=== PATIENT | female | born 2005 | race Caucasian/White ===

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

== ENCOUNTER 2024-06-20 23:32 | Emergency (ER) | payer SELFPAY ==
--- NOTE | ~2024-06-20 | CT_ITS ---
EXAMINATION: CT abdomen pelvis w con DATE: 06/21/2024 01:14 INDICATION: Acute epigastric abdominal pain. TECHNIQUE: Computed tomography (CT) of the abdomen and pelvis was performed with 100 mL Omnipaque 350 intravenous contrast. Automated exposure control and iterative reconstruction technique were employe d. The dose-length product was 846.05 mGy-cm. COMPARISON: None. FINDINGS: The visualized portions of the lung bases are clear without pneumonia or pleural effusion. The heart size is normal. No pericardial effusion. The liver, gallbladder, spleen, pancreas, adrenal glands, and kidneys are normal. There are no dilated loops of bowel. The appendix is normal. There ar e no pathologically enlarged lymph nodes. There is physiologic fluid in the pelvis. The uterus is enl arged, consistent with recent . There is mild lumbar spondylosis. There is mild chronic ante rior wedging of T11 and T12 vertebral bodies. IMPRESSION: 1. No etiology for the patient's symptoms. Reviewed, dictated and finalized at location A.
[2024-06-20 23:32] VITALS: BP 144/100; PULSE 63; RESP 32; TEMP 36.8; O2SAT 100
[2024-06-20 23:42] VITALS: BP 143/85; PULSE 63; RESP 33; O2SAT 100
--- NOTE | 2024-06-20 23:44 | ED.GENADULT ---
HPI - General Adult General Chief complaint: Shortness of Breath/Dyspnea Stated complaint: abd pain Time Seen by Provider: 06/20/24 23:44 History of Present Illness HPI narrative: This is a 19-year-old female patient who delivered a term infant on June 05, 2020 for who has no other past medical history who presents with an acute onset of mid epigastric pain radiating to her back approximately 1 hour prior. States this is severe pain and feels sharp she localizes it to her epigastrium. She is breathing rapidly but states that this is in compensation of the pain she is not feeling short of breath per se. patient states she is having some lochia but it is normal meaning that it is steadily decreasing since delivery. She is not . Prior to the onset of this pain she was in her usual state of health in her state. Remainder of ROS was negative for fever, chills, nausea, vomiting, headache, vision changes, chest pain, sob, or changes in diet, bladder, or bowel habits. Related Data Home Medications Medication Instructions Recorded Confirmed vits no.126-ferrous fum 1 tablet PO DAILY 10/09/23 10/09/23 28 mg iron-folic acid 800 mcg tablet (Classic ) Allergies Allergy/AdvReac Type Severity Reaction Status Date / Time No Known Allergies Allergy Verified 10/03/23 13:44 [facility] Past Medical History Medical History ADHD Bronchitis COVID-19 Depression Surgical History Surgical History No significant past surgical history Family History Family History Other No significant family history Social History Social History Smoking status: Never smoker Alcohol intake: never Substance use: never Living arrangements: with family Occupation/Education: student 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 Appears uncomfortable and breathing rapidly. No diaphoresis noted. HEENT: No rhinorrhea noted, mucous membranes moist. No scleral icterus or conjunctival injection. CV: Normal rate, regular rhythm, S1S2 no M/G/R. 2+ distal pulses all extremities. No peripheral edema noted. PULM: Rapid respiration. Clear to auscultation bilaterally. No wheezes, rales, rhonchi. GI: Abdomen soft, mild epigastric tenderness. No rigidity, distention or guarding.? NEURO: Normal speech. No lateralizing or focal deficits noted. Course Course Emergency Course: 0002 labs ordered, status post 2 mg of morphine feeling improved. To CT scanner for CT abdomen pelvis with contrast. 0401 CT scan returns without any acute findings or indication of pancreatitis, pyelonephritis, any other acute intra-abdominal pathology. patient reports her pain remains resolved. Vital Signs Vital signs: Vital Signs Temperature 36.8 C 06/20/24 23:32 Pulse Rate 63 06/20/24 23:32 Respiratory Rate 32 H 06/20/24 23:32 Blood Pressure 144/100 H 06/20/24 23:32 Pulse Oximetry 100 06/20/24 23:32 Oxygen Delivery Room Air 06/20/24 23:32 Temperature 36.8 C 06/20/24 23:32 Pulse Rate 57 L 06/21/24 03:46 Respiratory Rate 14 06/21/24 03:46 Blood Pressure 124/81 06/21/24 03:46 Pulse Oximetry 97 06/21/24 03:46 Oxygen Delivery Room Air 06/21/24 02:31 Medical Decision Making MDM Narrative Medical decision making narrative: Patient was placed in Room #:? 1 Independent Historian: none External Source Review: medical records Differential diagnosis includes but not limited to:? pancreatitis, peptic ulcer, GERD Medications were Reviewed: home medications Independently I
[2024-06-20 23:46] VITALS: BP 128/84; PULSE 72; RESP 21; O2SAT 100
[2024-06-20] MEDS: MORPHINE SULFATE (*CRX) 2 MG/ML INJ IV PUSH (23:55)
[2024-06-21] VITALS (19 sets, daily range): BP systolic 114–130; BP diastolic 69–83; PULSE 46–69; RESP 13–23; O2SAT 96–100
--- NOTE | 2024-06-21 00:02 | PC.NURSE ---
patient currently rating her pain at 5/10. patient has slowed her breathing.
--- NOTE | 2024-06-21 00:03 | PC.NURSE ---
Josephine with lab notified of new orders
--- NOTE | 2024-06-21 00:10 | PC.NURSE ---
resting quietly on stretcher. call light in reach. wob not labored at this time. states the morphine is making her have the giggles. lab currently at the bedside
--- NOTE | 2024-06-21 00:16 | PC.NURSE ---
notified dr montemayor of current heart rate of 46. verbal order for ekg
--- NOTE | 2024-06-21 00:19 | ECG_ITS ---
Test Date: 2024-06-21 00:27:24 Measurements Intervals [place] Rate: 54 P: 48 FL: 162 QRS: 61 QRSD: 93 T: 46 QT: 464 QTc: 441 Interpretive Statements SINUS BRADYCARDIA WITH SINUS ARRHYTHMIA WITH OCCASIONAL VENTRICULAR PREMATURE COMPLEXES BORDERLINE ECG No previous ECG available for comparison Electronically Signed On 06-21-2024 07:27:59 CDT by Donnie Thornton D.O.
--- NOTE | 2024-06-21 00:20 | PC.NURSE ---
Airam with cardiopulmonary at the bedside.
[2024-06-21 00:36] LABS: Hematocrit 36.4 % (35.0-49.0); Hemoglobin 11.2 g/dL (12.0-15.0); Mean Corpuscular HGB Conc 30.8 g/dL (32-36); Mean Corpuscular Hemoglobin 26.3 pg (27.0-31.0); Mean Corpuscular Volume 85.4 fL (78.0-102.0); Mean Platelet Volume 11.6 fl (9.2-11.8); Platelet Count Result 301 K/mm3 (150-420); Red Blood Count 4.26 M/mm3 (4.20-5.40); Red Cell Distribution Width 15.1 % (11.6-14.4); White Blood Count 6.9 K/mm3 (4.8-10.8)
[2024-06-21 00:46] LABS: Alanine Aminotransferase 27 U/L (14-59); Albumin Level 3.3 g/dL (3.4-5.0); Alkaline Phosphatase 128 U/L (46-116); Anion Gap 10 mmol/L (4-12); Aspartate Amino Transferase 20 U/L (15-37); Bilirubin,Total 0.2 mg/dL (0.00-1.00); Blood Urea Nitrogen 11 mg/dL (7-18); Calcium 9.1 mg/dL (8.5-10.1); Carbon Dioxide 26 mmol/L (21-32); Chloride 102 mmol/L (98-108); Cholesterol 148 mg/dL (0-200); Estimated CRCL calculation 98 ml/min; Estimated Glomerular Filt Rate > 60; Glucose 111 mg/dL (70-99); HDL Direct 40 mg/dL (40-60); LDL Cholesterol Calculated 81 mg/dL (<130); Osmolality Calculated 286 mOsm/kg (285-295); Potassium 3.2 mmol/L (3.5-5.1); Sodium 138 mmol/L (136-145); Total Protein 6.6 g/dL (6.4-8.2); Triglycerides 136 mg/dL (0-150)
[2024-06-21 00:48] LABS: Lipase 311 U/L (16-77)
[2024-06-21 00:52] LABS: Lactic Acid Reflex 1.4 mmol/L (0.4-2.0)
--- NOTE | 2024-06-21 00:54 | PC.NURSE ---
patient being transported to ct via stretcher.
[2024-06-21 00:55] LABS: Add Urine Microscopic? YES; Bilirubin Urine Negative (Negative); Blood Urine 2+ (Negative); Color Urine Light Yellow (Yellow); Glucose Urine UA Negative (Negative); Ketones Urine Negative (Negative); Leukocyte Esterase Ur 2+ (Negative); Nitrate Urine Negative (Negative); Protein Urine Negative (Negative); Specific Grav Ur 1.025 (1.010-1.020); Urobilinogen Urine 0.2 mg/dL (0.2-1.0)
[2024-06-21 01:03] LABS: Appearance Urine Cloudy (Clear); RBC Urine >75 /hpf (0-2)
[2024-06-21 01:04] LABS: Bacteria Urine 1+ /hpf; Squamous Epithelial Cell Urine Occasional /hpf (Few); WBC Urine 31-50 /hpf (0-3)
[2024-06-21] MEDS: SODIUM CHLORIDE 0.9% IV 500 ML 999 ML IV CONT (01:09)
[2024-06-21] MEDS: SODIUM CHLORIDE 0.9% IV 1,000 ML 150 ML IV CONT (01:45)
--- NOTE | 2024-06-21 01:58 | PC.NURSE ---
patient is resting quietly on stretcher. call light in reach. waiting on ct results
--- NOTE | 2024-06-21 03:00 | PC.NURSE ---
patient is resting quietly on stretcher. call light in reach. at her side. continue to wait on ct results. patient and updated.
--- NOTE | 2024-06-21 03:47 | PC.NURSE ---
notified dr montemayor that ct results have been faxed to department
--- NOTE | 2024-06-21 03:57 | PC.NURSE ---
dr montemayor at the bedside
--- NOTE | 2024-06-23 12:38 | PC.NURSE ---
FINAL URINE CULTURE RESULTS: MIXED GENITAL MEHRDAD. NO ACTION NEEDED PER DR MCKEON.
== END 2024-06-21 04:20 | disposition home or self-care (01) ==
PROVIDERS: Emergency Provider Family Medicine
DX: N39.0 Urinary tract infection, site not specified (principal); R10.13 Epigastric pain
CPT/HCPCS: 36415; 74177; 80053; 80061; 81001; 83605; 83690; 85027; 87086; 87088; 93005; 96361; 96374; 99284; J2270; J7030; J7040; Q9967

== ENCOUNTER 2024-11-10 16:17 | Emergency (ER) | payer OTHER, SELFPAY ==
[2024-11-10 16:23] VITALS: BP 113/70; PULSE 85; RESP 16; TEMP 36.1; O2SAT 99
--- OUTSIDE RECORDS SUMMARY | 2024-11-10 16:28 | XMS_ITS | Clinical Summary ---
Author Organization [facility] [address] Address [address] [place] [address] Phone Care Team Providers Care Body Specialist Name Role Phone No, Physician Primary Care Provider [phone] Allergies Active Allergy Reactions Criticality Noted Date Comments [place] Hives Medium 02/12/2024 Medications oxyCODONE-aceta minophen (PERCOCET) 5-325 mg per tabletIndicatio ns:Pain Take 1-2 tablets by mouth every 8 (eight) hours as needed for pain 20 tablet 06/25/2024 Active Active Problems Problem Noted Date Diagnosed Date Gallstone pancreatitis 06/23/2024 39 weeks gestation of 06/04/2024 Pityriasis rosea 12/04/2017 Immunizations Name Administration Dates Next Due DTaP 05/03/2009, 6,2004,09/27,2004 HiB 01/07/2006,2004,2004 Hib (PRP-T) 2004 IPV 05/03/2009, 5,2004,07/07 Influenza, Trivalent, Preser vative Free, Intramuscular 08/04/2012 MMR 05/03/2009,06/15/2005 Meningococcal MCV4P (Menactra) 06/03/2015 Pneumococcal Conjugate 7-Valent 06/15/2005 Pneumococcal Conjugate PCV 13 2004, 004,2004 Tdap 06/03/2015 Varicella 05/03/2009,06/15/2005 Family History Medical History Relation Name Comments Hemophilia Mother Relation Name Status Comments Mother Social History Tobacco Use Types Packs/Day Years Used Date Smoking Tobacco: Never Smokeless Tobacco: Never Alcohol Use Standard Drinks/Week Comments No 0 (1 standard drink = 0.6 oz pur e alcohol) [facility] Utilities Answer Date Recorded In the past 12 months has th e electric, gas, oil, or water company threatened to shut off services in your home? No 06/25/2024 Humiliation, Afraid, Rape, and Kick questionnair e Answer Date Recorded Within the last year, have y ou been afraid of your partner or ex-partner? No 06/25/2024 Within the last year, have y ou been humiliated or emotionally abused in other ways by your partner or ex-partner? No Within the last year, have y ou been kicked, hit, slapped, or otherwise physically hurt by your partner or ex-partner? No 06/25/2024 Within the last year, have y ou been raped or forced to have any kind of sexual activity by your partner or ex-partner? No 06/25/2024 Social Connection and Isolat ion Panel [NHANES] Answer Date Recorded In a typical week, how many times do you talk on the phone with family, friends, or neighbors? More than three times a week 06/25/2024 How often do you get togethe r with friends or relatives? More than three times a week 06/25/2024 How often do you attend chur or restoration services? Never 06/25/2024 Do you belong to any clubs o r organizations such as mosque groups, unions, fraternal or athletic groups, or school groups? No 06/25/2024 How often do you attend meet ings of the clubs or organizations you belong to? Never 06/25/2024 Are you , , di vorced, , never , or living with a partner? 06/25/2024 AUDIT-C Answer Date Recorded Q1: How often do you have a drink containing alcohol? Never 06/25/2024 Q2: How many drinks containi ng alcohol do you have on a typical day when you are drinking? Patient does not drink Q3: How often do you have si x or more drinks on one occasion? Never 06/25/2024 Overall Financial Resource Strain (CARDIA) Answe r Date Recorded How hard is it for you to pa y for the very basics like food, housing, medical care, and heating? Not hard at all 06/25/2024 PHQ-2 Answer Date Recorded PHQ-2 Total Score (If total score is 3 or more points, staff should administer the PHQ-9) 0 06/25/2024 [facility] - Occupational Stress Questionnaire Answer Date Recorded Do you feel stress - tense, restless, nervous, or anxious, or unable to sleep at night because your mind is troubled all the time - these days? Only a little 06/25/2024 Exercise Vital Sign Answer Date Recorde d On average, how many days pe r week do you engage in moderate to strenuous exercise (like a brisk walk)? 7 days 06/25/2024 On average, how many minutes do you engage in exercise at this level? 30 min 06/25/2024 Hunger Vital Sign Answer Date Recorded Within the past 12 months, y ou worried that your food would run out before you got the money to buy more. Never true 06/25/20 24 Within the past 12 months, t he food you bought just didn't last and you didn't have money to get more. Never true 06/25/2024 PRAPARE - Transportation Answer Date Re corded In the past 12 months, has l ack of transportation kept you from medical appointments or from getting medications? No 06/01 In the past 12 months, has l ack of transportation kept you from meetings, work, or from getting things needed for daily living? No 06/25/2024 Housing Stability Vital Sign Answer Chris e Recorded Unable to Pay for Housing in the Last Year Not o n file 02/12/2024 In the last 12 months, how many places have you lived? 1 02/12/2024 In the last 12 months, was t here a time when you did not have a steady place to sleep or slept in a fci (including now)? No 02/12/2024 Housing Stability Vital Sign Answer Chris e Recorded In the last 12 months, was t here a time when you were not able to pay the mortgage or rent on time? No 06/25/2024 In the past 12 months, how m any times have you moved where you were living? 0 06/25/2024 At any time in the past 12 m [facility], were you homeless or living in a fci (including now)? No 06/25/2024 Personal Safety Answer Date Recorded Have you ever been in or are you currently in a harmful physical or emotional relationship or is someone making you feel afraid or unsafe? 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 Gender Identity Not on file Sexual Orientation Not on file Obstetrics History Para Term AB IAB SAB Ectopic Multiple Livin g Live Births 1 1 1 0 1 1 Date Outcome GA Total Labor Labor/2nd/3rd Weight Sex Type Anes PTL Zohreh A1 A5 Name Clin 2023 Term 39w 5d 6h 53m 5h 30m/1h 16m/0h 07m 3.364 kg (7 lb 6.7 oz) M Vagina l Epidur al N Livin g 2 6 Beau Sanchez Wakefield MD Complications:None Delivery Location:This [facility] Last Filed Vital Signs Vital Sign Reading Time Taken Comments Blood Pressure 136/83 06/26/2024 8:12 AM CDT Pulse 54 06/26/2024 8:12 AM CDT Temperature 36.5 C (97.7 F) 06/26/2024 8:12 AM CDT Respiratory Rate 18 06/26/2024 8:12 AM CDT Oxygen Saturation 100% 06/26/2024 8:12 AM CDT Inhaled Oxygen Concentration - - Weight 94.9 kg (209 lb 3.5 oz) 06/23/2024 10:34 AM CDT Height 172.7 cm (5' 8 ) 06/23/2024 10:34 AM CDT Body Mass Index 31.81 06/23/2024 10:34 AM CDT Plan of Treatment Health Maintenance Due Date Last Done Comments Hepatitis C Screening 2004 HPV Vaccines (1 - 3-dose series) 2019 Meningococcal B Vaccine (1 of 2 - Patient Seeks Protection) 2020 Hepatitis B Screening 2022 Regular Well Visit/Exam 18-64 2022 Influenza Vaccine (#1) 2024 08/04/2012 DTaP/Tdap/Td Vaccine (7 - Td or Tdap) 06/03/2025 06/03/2015, 05/03/2009, 01/07/2006, Additional history exists Depression Screening 06/25/2025 06/25/2024, 06/25/2024, 05/21/2024, Additional history exists Pneumococcal vaccine <65 Completed 005, 2004, 2004, Additional history exists Varicella Vaccines Completed 05/03/2009, 06/15/2005 Meningococcal Vaccine Aged Out 06/03/2015 No chris sue eligible based on patient's age to complete this topic Insurance IDPA [employer] CHOICE IDPA [facility] [employer] CHOICE IDPA Advance Directives For more information, please contact: [phone] * Full Code (Latest Code Status on File) Date Activated Date Inactivated Comments 06/23/2024 8:57 AM 06/26/2024 4:00 PM * Full Code Date Activated Date Inactivated Comments 06/05/2024 4:35 AM 06/07/2024 5:32 PM * Full Code Date Activated Date Inactivated Comments 06/04/2024 12:17 AM 06/05/2024 4:35 AM Full CPR in c ase of cardiopulmonary arrest Care Teams Body Specialist Relationship Specialty Start Date End Date No, Physician PCP - General 12/13/23
--- OUTSIDE RECORDS SUMMARY | 2024-11-10 16:28 | XMS_ITS | Clinical Summary ---
Author Organization [facility] Address [address] [place] [address] Phone Care Team Providers Care Partner Alliance Manager Name Role Phone Unavailable Unavailable Unavailable Reason for Visit and Chief Complaint * PHONE CALL Problems Includes: Problems addressed during this encounter and other active Problems All Visits Onset Date Resolved Date Provider Condition S tatus History of Breast Disorders 11/20/2023 KEYANNA BOX MD Active Last Documented On 11/20/2023 4:08PM ; [facility] Note: PGM cancer History of Depression 11/20/2023 KEYANNA BOX MD Active Last Documented On 11/20/2023 4:08PM ; [facility] Note: pt dx at 5 yo was on ritalin for A DHD at 8 y o x one year; no meds since then; dad, mom History of Hematologic Disorders 11/20/2023 KEYANNA BOX MD Active Last Documented On 11/20/2023 4:08PM ; [facility] Note: dad History of Renal Disease 11/20/2023 KEYANNA BOX MD Active Last Documented On 11/20/2023 4:08PM ; [facility] Note: dad kidney cancer, had kidney breana crystal History of Reported Physical Trauma 11/20/2023 KEYANNA BOX MD Active Last Documented On 4 4:08PM ; [facility] Reported Family History of Congenital Heart Disease 10/30/2023 [facility] Last Documented On 10/30/2023 11:05AM ; [facility] Note: mom hemophelia carrier 09/02/2023 KEYANNA BOX MD Active Last Documented On 4 3:04PM ; [facility] Plan of Treatment Pending Tests Order Diagnosis Results Due Ordering P rovider Lab Penta screen 12/23/23 KEYANNA BELCHER MD Last Documented On 4 11:53AM ; [facility] Ultrasound (OB) - U/S COMPLETE OB U/S >/ = 14 WKS , SINGLE FETUS Matern care for oth or susp poor fetl grth, 2nd tri, unsp 01/20/24 KEYANNA BOX MD Last Documented On 4 3:29PM ; [facility] Lab Antibody Scr, RBC w/ reflex id 02/17 KEYANNA BOX MD Last Documented On 4 8:22AM ; [facility] Lab RPR (Monitoring) w/ reflex Titer KEYANNA BOX MD Last Documented On 4 8:22AM ; [facility] Lab UA, Complete, Reflex to Culture 01/29 10/23 KEYANNA BOX MD Last Documented On 4 8:22AM ; [facility] Lab 1 HR GLUCOSE TOLERANCE TEST 02/18/24 KEYANNA BOX MD Last Documented On 4 8:22AM ; [facility] Lab *CBC W/DIFF 02/18/24 KEYANNA Sparrow MD Last Documented On 4 8:22AM ; [facility] Lab CBC WITH DIFF 03/10/24 KEYANNA RENEE MD Last Documented On 4 9:44AM ; [facility] Lab URINALYSIS /REFLEX C&S 03/10/24 LACY BOX MD Last Documented On 4 9:44AM ; [facility] Lab ANTIBODY SCREEN 03/10/24 KEYANNA VEGA MD Last Documented On 4 9:44AM ; [facility] Lab GTT 1 HOUR GLUCOSE 03/10/24 KEYANNA BOX MD Last Documented On 4 9:44AM ; [facility] Lab RPR (RAPID PLASMA REAGIN) 03/10/24 KEYANNA BOX MD Last Documented On 4 9:44AM ; [facility] Ultrasound (OB) - ULTRASOUND FOLLOW -UP OB U/S Matern care for oth or susp poor fetl grth, 2nd tri, unsp 03/13/24 KEYANNA BOX MD Last Documented On 4 9:53AM ; [facility] Assessments Includes: Assessments from this encounter No Assessments Recorded Medical Equipment - Implanted Devices Includes: Current Devices No Medical Equipment Recorded Medications Includes: Medications discussed during this encounter and other current Medications Current Medications (continue as prescribed) Vitamins Oral Tablet 11/20/2023 Provider: Diagnosis: Last Documented On 4 3:22PM By FERNANDA CROSS ; [facility] Sertraline HCl 50 MG Oral Tablet 11/20/2023 Provider: KEYANNA BOX MD Diagnosis: Oth mental disor ders complicating , first trimester One tablet daily Last Documented On 11/20/2023 4:06PM By KEYANNA BOX MD ; [facility] Medications Administered Includes: Administered Medications from this encounter No Administered Medications Recorded Results Includes: Results discussed during this encounter No Results Recorded For Specified Dates History of Present Illness Includes: History of Present Illness from this encounter No History of Present Illness Recorded Social History No Social History Recorded - Smoking Status Unknown Medical History Includes: Medical History addressed during this encounter No Medical History Recorded Family History Includes: Family History addressed during this encounter No Family History Recorded Review of Systems Includes: Review of Systems from this encounter No Review of Systems Recorded Mental Status Includes: Mental Status from this encounter No Mental Status Recorded Functional Status Includes: Functional Status from this encounter No Functional Status Recorded Physical Exam Includes: Physical Exam from this encounter No Physical Exam Recorded Allergies Includes: Active Allergies No Known Allergies Encounters Encounter Provider Location Date Check-In Time Check-Out Time Diagnosis * PHONE CALL KEYANNA BOX MD 02/12/2024 9:26AM 11:59PM Insurance Includes: Active Insurance Policies Plan Name Member ID Group # Subscriber Relationship Effect lizy Dates 1 - MEDICAID [facility] [id number] [place] Self Clinical Notes Includes: Clinical Notes from this encounter * Progress note Date Encounter Last Documented by 02/12/2024 * PHONE CALL Last documented on 02/12/2024; 3:33 PM, KEYANNA BOX MD; [facility] OB Visit Return Visit Risk Factors Family History of Disorders of Blood and Blood-forming Organs (Score: 0) History of Breast Disorders (Score: 0) History of Depression (Score: 0) History of Hematologic Disorders (Score: 0) History of Renal Disease (Score: 0) History of Reported Physical Trauma (Score: 0) (Score: 0) Age: 18y : 1 FT: 0 : 0 Ab: 0 Zohreh: 0 DON: 06/08/2024 (by LMP) Gestational Age: 23 weeks 2 days Pt called with complaints of feeling nauseous, weak in the knees and dizzy/light headed since Saturday evening 02/10/2024. She has had some swelling in her ankles for about 3-4 days. Pt denies any chest pain. When asked about epi gastric pain she said it feels like she has trapped gas/sharp pain that has been about a week every once in a while at night. She was also sweaty/clammy yesterday. She said her b/p was 135/75 yesterday and today it was 142/67 with a blood sugar of 119. (She gets it checked at the [employer] where she works.) She had eaten two [employer] breakfast bars along with some water. She said she drinks 24 ounces of water 3 times a day and has a 32 ounce soda every couple of days.Pt was advised to go to L&D for evaluation. DG at L&D: FHT's: 130's, no ctx's; BP's NOT orthostatic; urine: no UTI; home: balanced nutrition, keep office visit next wk, likely 26 wk labs early;
--- OUTSIDE RECORDS SUMMARY | 2024-11-10 16:28 | XMS_ITS ---
Care Plan - [facility] Created on: November 10, 2024 [place] : 2005 Sex: Female Author Organization [facility] Address [address] [place] [id number] Phone Care Team Providers Care Clinical Quality Assurance Associate Name Role Phone Unavailable Unavailable Unavailable
--- OUTSIDE RECORDS SUMMARY | 2024-11-10 16:28 | XMS_ITS | Clinical Summary ---
Author Organization [facility] Address [address] [place] [address] Phone Care Team Providers Care Washer Machine Name Role Phone Provider, None Primary Care Provider Unavailabl e Allergies No known active allergies Medications Escitalopram Oxalate 5 MG TabletIndication s:Anxiety and depression Take 1 Tablet by mouth daily. 30 Tablet 07/17/2021 Active Active Problems Problem Noted Date Diagnosed Date Family history of hemophilia 07/17/2021 Family History Medical History Relation Name Comments Bipolar Disorder Father Cancer Maternal Grandmother breast and pancreatic Anxiety disorder Mother Depression Mother Cancer Paternal Grandmother breast and ovarian CA Relation Name Status Comments Father Maternal Grandmother Mother Paternal Grandmother Social History Tobacco Use Types Packs/Day Years Used Date Smoking Tobacco: Never Smokeless Tobacco: Never Alcohol Use Standard Drinks/Week Comments Not Currently 0 (1 standard drink = 0.6 oz pur e alcohol) PHQ-2 Answer Date Recorded Total Score - Questions 1-9 20 06/30 Sexually Active Control Partners Comments Yes Male Comments No Sex and Gender Information Value Date Recorded Sex Assigned at Not on file Legal Sex Female 8:34 PM CDT Gender Identity Not on file Sexual Orientation Not on file Last Filed Vital Signs Vital Sign Reading Time Taken Comments Blood Pressure 116/76 03/22/2022 4:11 PM CDT Pulse 98 03/22/2022 4:11 PM CDT Temperature 38.1 C (100.6 F) 03/22/2022 4:11 PM CDT Respiratory Rate 16 03/22/2022 4:11 PM CDT Oxygen Saturation 98% 03/22/2022 4:11 PM CDT Inhaled Oxygen Concentration - - Weight 73.9 kg (163 lb) 03/22/2022 4:11 PM CDT Height 170.2 cm (5' 7 ) 07/17/2021 3:52 PM CDT Body Mass Index - - Plan of Treatment Health Maintenance Due Date Last Done Comments Hepatitis C Virus (HCV) Screening 2004 Human Papillomavirus (HPV) Immunization (1 - 3-dose series) 2019 Meningococcal B Immunization (1 of 2 - Standard) 2020 Influenza Immunization (#1) 2024 08/04/2012 SARS-COV-2 Immunization ( season) 2024 Respiratory Syncytial Virus (RSV) Immunization (Adult) (1 - 1-dose 75+ series) 2079 Hepatitis B Immunization Completed 005, 2004, 2004 Pneumococcal Immunization Combined Aged Out 06/15/2005, 2004, 2004, Additional history exists No longer eligible based on patient's age to complete this topic Measles Mumps Rubella (MMR) Immunization Discontinued 05/03/2009, 06/15/2005 Polio (IPV) Immunization Discontinued 009, 05/03/2009, 2004, Additional history exists Varicella Immunization Discontinued 05/03/2009, 2004 DTaP/Tdap/Td Immunization Discontinued 2014, 05/03/2009, 05/03/2009, Additional history exists Meningococcal Immunization (ACWY) Aged Out 06/03/2015 No longer eligible based on patient's age to complete this topic TdaP Immunization Completed 06/03/2015 Rotavirus Immunization Aged Out No lo nger eligible based on patient's age to complete this topic Insurance MEDICAID [place] Care Teams Washer Machine Relationship Specialty Start Date End Date Provider, None CT PCP - General 07/12/22
--- OUTSIDE RECORDS SUMMARY | 2024-11-10 16:28 | XMS_ITS ---
Author Organization [facility] Address [address] [place] [phone] Phone Care Team Providers Care Senior Project Coordinator Name Role Phone Unavailable Unavailable Unavailable Problems Includes: Active, inactive, and resolved Problems All Visits Onset Date Resolved Date Provider Condition S tatus History of Breast Disorders 11/20/2023 KEYANNA VILLA MD Active Last Documented On 11/20/2023 4:08PM ; [facility] Note: PGM cancer History of Depression 11/20/2023 KEYANNA VILLA MD Active Last Documented On 11/20/2023 4:08PM ; [facility] Note: pt dx at 5 yo was on ritalin for A DHD at 8 y o x one year; no meds since then; dad, mom History of Hematologic Disorders 11/20/2023 KEYANNA VILLA MD Active Last Documented On 11/20/2023 4:08PM ; [facility] Note: dad History of Renal Disease 11/20/2023 KEYANNA VILLA MD Active Last Documented On 11/20/2023 4:08PM ; [facility] Note: dad kidney cancer, had kidney breana crystal History of Reported Physical Trauma 11/20/2023 KEYANNA VILLA MD Active Last Documented On 4 4:08PM ; [facility] Reported Family History of Congenital Heart Disease 10/30/2023 YI BARBOUR NP-BC A ctive Last Documented On 10/30/2023 11:05AM ; [facility] Note: mom hemophelia carrier 09/02/2023 KEYANNA VILLA MD Active Last Documented On 4 3:04PM ; [facility] Plan of Treatment Findings Encounter Date Ordered Clinical summary pro vided to patient MISSED MENSES - NEW PT with YI BARBOUR WHNP-BC 10/30/2023 Last Documented On 4 11:14AM ; [facility] Pending Tests Order Diagnosis Results Due Ordering P rovider Lab Penta screen 12/23/23 KEYANNA BELCHER MD Last Documented On 4 11:53AM ; [facility] Ultrasound (OB) - U/S COMPLETE OB U/S >/ = 14 WKS , SINGLE FETUS Matern care for oth or susp poor fetl grth, 2nd tri, unsp 01/20/24 KEYANNA VILLA MD Last Documented On 4 3:29PM ; [facility] Lab Antibody Scr, RBC w/ reflex id 02/17 KEYANNA VILLA MD Last Documented On 4 8:22AM ; [facility] Lab RPR (Monitoring) w/ reflex Titer KEYANNA VILLA MD Last Documented On 4 8:22AM ; [facility] Lab UA, Complete, Reflex to Culture 01/29 10/23 KEYANNA VILLA MD Last Documented On 4 8:22AM ; [facility] Lab 1 HR GLUCOSE TOLERANCE TEST 02/18/24 KEYANNA VILLA MD Last Documented On 4 8:22AM ; [facility] Lab *CBC W/DIFF 02/18/24 KEYANNA Sparrow MD Last Documented On 4 8:22AM ; [facility] Lab CBC WITH DIFF 03/10/24 KEYANNA RENEE MD Last Documented On 4 9:44AM ; [facility] Lab URINALYSIS /REFLEX C&S 03/10/24 LACY VILLA MD Last Documented On 4 9:44AM ; [facility] Lab ANTIBODY SCREEN 03/10/24 KEYANNA VEGA MD Last Documented On 4 9:44AM ; [facility] Lab GTT 1 HOUR GLUCOSE 03/10/24 KEYANNA VILLA MD Last Documented On 4 9:44AM ; [facility] Lab RPR (RAPID PLASMA REAGIN) 03/10/24 KEYANNA VILLA MD Last Documented On 4 9:44AM ; [facility] Ultrasound (OB) - ULTRASOUND FOLLOW -UP OB U/S Matern care for oth or susp poor fetl grth, 2nd tri, unsp 03/13/24 KEYANNA VILLA MD Last Documented On 4 9:53AM ; [facility] Education and Decision Aids were provided during visit for: New OB form given to patient SAB precautions reviewed and pnv samples given. Advised H1N1 and seasonal flu vaccine. Covid vaccine per ACOG and CDC protocol Last Documented On 4 10:32AM ; [facility] Assessments Includes: Assessments for all patient encounters Findings Encounter Date Amenorrhea 8 2/7 weeks by LM P - EDC 06-11-24 MISSED MENSES - NEW PT with YI BECK-BC 10/30/2023 Last Documented On 4 11:14AM ; [facility] Instructions Includes: Instructions for all patient encounters Education and Decision Aids were provided during visit for: New OB form given to patient SAB precautions reviewed and pnv samples given. Advised H1N1 and seasonal flu vaccine. Covid vaccine per ACOG and CDC protocol Last Documented On 4 10:32AM ; [facility] Medical Equipment - Implanted Devices Includes: Current and historical Devices No Medical Equipment Recorded Medications Includes: Current and historical Medications Current Medications (continue as prescribed) Vitamins Oral Tablet 11/20/2023 Provider: Diagnosis: Last Documented On 4 3:22PM By FERNANDA CROSS ; [facility] Sertraline HCl 50 MG Oral Tablet 11/20/2023 Provider: KEYANNA VILLA MD Diagnosis: Oth mental disor ders complicating , first trimester One tablet daily Last Documented On 11/20/2023 4:06PM By KEYANNA VILLA MD ; [facility] Past Medications on file Macrobid 100 MG Oral Capsule 01/10/2024 - 01/17/2024 P rolupeder: YI BECK-BC Diagnosis: Dysuria One tablet twice a day Last Documented On 01/10/2024 2:56PM By Lindsey Chan Ez ; [facility] Terconazole 0.4% Vaginal Cream 11/01/2023 - 11/20/2023 Provider: YI A BARBOUR WH LABORATORY ANALYST-BC Diagnosis: as directed - insert one madi licator full pv q hs x 7 nocs Last Documented On 3:21PM By FERNANDA CROSS ; [facility] Macrobid 100 MG Oral Capsule 10/31/2023 - 11/20/2023 Shyla fitzgerald: YI BARBOUR WHNP-BC Diagnosis: One tablet twice a day Last Documented On 3:06PM By FERNANDA CROSS ; [facility] Medications Administered Includes: Administered Medications in patient's chart No Administered Medications Recorded Vital Signs Includes: Vital Signs from 11/10/2023 through 11/10/2024 Vital Name 03/03/2024 09:16A 02/18/2024 11:21A 01/20/2024 01:48P 12/23/2023 11:28A 11/20/2023 03:05P Blood Pressure Sitting R 118/68 BP Cuff Size Regular Temp-Temporal 98.7 98.7 Weight (lb) 190 185 178 173 171.4 Blood Pressure Sitting (mmHg) 116/64 100/60 110/62 110/82 Temp-Oral (F) 98.3 98.7 98.6 Height (in) 67.5 Body Mass Index 26.4 BMI Percentile (percentile) 85.4 Body Surface Area 1.9 Last Documented: On 03/03/2024 9:16AM ; [facility] On 02/18/2024 11:42AM ; [facility] On 01/20/2024 1:48PM ; [facility] On 12/23/2023 11:28AM ; [facility] On 11/20/2023 4:01PM ; [facility] Results Includes: Results from 11/10/2023 through 11/10/2024 CBC WITH DIFF [facility] La boratory Ordered by KEYANNA VILLA MD on 03/03/20 24 [address] [facility], [place], [address] Collected: 03/03/2024 Report ed: 03/03/2024 11:32 tel: Last Documented On 3:33PM ; [facility] Reviewed on 03/13/2024; All test results are final unless otherwise noted. ALC 1.2 None Last Documented On 4 9:53AM ; [facility] Note: Responsible Observer: (HRG) ANC 6.5 None Last Documented On 4 9:53AM ; [facility] Note: Responsible Observer: (HRG) BASO# 0.03 th/uL (0.00 - 0.20) None Last Documented On 4 9:53AM ; [facility] Note: Responsible Observer: (HRG) BASO% 0.4 % (0.0 - 2.0) None Last Documented On 4 9:53AM ; [facility] Note: Responsible Observer: (HRG) CBC WITH DIFF See Note None Last Documented On 4 9:53AM ; [facility] Note: CBC (COMPLETE BLOOD COUNT)Responsi ble Observer: (HRG) DIFF (Y/N) NO None Last Documented On 4 9:53AM ; [facility] Note: Responsible Observer: (HRG) EOS# 0.08 th/uL (0.00 - 0.45) None Last Documented On 4 9:53AM ; [facility] Note: Responsible Observer: (HRG) EOS% 1.0 % (0.0 - 9.0) None Last Documented On 4 9:53AM ; [facility] Note: Responsible Observer: (HRG) HCT 31.6 % (38.0 - 47.0) L (Low) Last Documented On 4 9:53AM ; [facility] Note: Responsible Observer: (HRG) HGB 9.8 g/dL (12.0 - 16.0) L (Low) Last Documented On 4 9:53AM ; [facility] Note: Responsible Observer: (HRG) IG# 0.05 th/ul (0.00 - 0.10) None Last Documented On 4 9:53AM ; [facility] Note: Responsible Observer: (HRG) IG% 0.6 % (0.0 - 0.5) H (High) Last Documented On 4 9:53AM ; [facility] Note: Responsible Observer: (HRG) LYMPH# 1.15 th/uL (1.00 - 4.80) None Last Documented On 4 9:53AM ; [facility] Note: Responsible Observer: (HRG) LYMPH% 14.1 % (14.0 - 45.0) None Last Documented On 4 9:53AM ; [facility] Note: Responsible Observer: (HRG) MCH 25.7 pg (25.0 - 35.0) None Last Documented On 4 9:53AM ; [facility] Note: Responsible Observer: (HRG) MCHC 31.0 g/dL (31.0 - 36.0) None Last Documented On 4 9:53AM ; [facility] Note: Responsible Observer: (HRG) MCV 82.9 fl (80.0 - 100) None Last Documented On 4 9:53AM ; [facility] Note: Responsible Observer: (HRG) MONO# 0.35 th/uL (0.00 - 0.80) None Last Documented On 4 9:53AM ; [facility] Note: Responsible Observer: (HRG) MONO% 4.3 % (1.0 - 10.0) None Last Documented On 4 9:53AM ; [facility] Note: Responsible Observer: (HRG) MPV 12.2 fl (6.0 - 11.0) H (High) Last Documented On 4 9:53AM ; [facility] Note: Responsible Observer: (HRG) NEUT# 6.49 th/uL None Last Documented On 4 9:53AM ; [facility] Note: Responsible Observer: (HRG) NEUT% 79.6 % (45.0 - 76.0) H (High) Last Documented On 4 9:53AM ; [facility] Note: Responsible Observer: (HRG) NRBC% 0.0 % (0.0 - 0.0) None Last Documented On 4 9:53AM ; [facility] Note: Responsible Observer: (HRG) PLT 251 th/uL (150 - 400) None Last Documented On 4 9:53AM ; [facility] Note: Responsible Observer: (HRG) RBC 3.81 mil/uL (4.50 - 5.90) L (Low) Last Documented On 4 9:53AM ; [facility] Note: Responsible Observer: (HRG) RDW 14.1 % (11.0 - 16.0) None Last Documented On 4 9:53AM ; [facility] Note: Responsible Observer: (HRG) WBC 8.2 th/uL (4.5 - 11.0) None Last Documented On 4 9:53AM ; [facility] Note: Responsible Observer: (HRG) GESTATIONAL DIABETES SCREEN [facility] Laboratory Ordered by KEYANNA VILLA MD on 03/03/20 24 [address] [employer] [facility], [place], [address] Collected: 03/03/2024 Report ed: 03/03/2024 11:34 tel:[phone] Last Documented On 4 3:33PM ; [facility] Reviewed on 03/13/2024; All test results are final unless otherwise noted. GLUCOSE 110 (70 - 150) None Last Documented On 03/05/2024 9:53AM ; [facility] Note: Weeks Gestation _26 03/03/24.1134.PA . . . Gms of Glucola _50 03/03/24.1134.PA . . .Responsible Observer: (PA) GESTATIONAL DIABETES SCREEN See Note None Last Documented On 03/05/2024 9:53AM ; [facility] Note: GESTATIONAL DIABETES SCREENGlucose 1 hr, GDMSResponsible Observer: (PA) ANTIBODY SCREEN [facility] Ordered by KEYANNA VILLA MD on 03/03/20 24 [address] [facility] [place], [address] Collected: 03/03/2024 Report ed: 03/03/2024 11:55 tel:[phone] Last Documented On 4 3:33PM ; [facility] Reviewed on 03/13/2024; All test results are final unless otherwise noted. ANTIBODY SCREEN NONE DETECTED None Last Documented On 03/05/2024 9:53AM ; [facility] Note: Responsible Observer: (JACLYN) RPR (RAPID PLASMA REAGIN) [facility] Laboratory Ordered by KEYANNA VILLA MD on 03/03/20 24 [address] [facility] [place], [address] Collected: 03/03/2024 Report ed: 03/05/2024 07:03 tel:[phone] Last Documented On 4 3:33PM ; [facility] Reviewed on 03/13/2024; All test results are final unless otherwise noted. RPR (DX) W/REFL TITERAND CONFIRMATORY TESTING NON-REACTIVE (NON-REACTIVE) N (Normal) Last Documented On 9:53AM ; [facility] Note: No laboratory evidence of syphilis . If recent exposureis suspected, submit a new sample in 2-4 weeks.THIS TEST WAS PERFORMED AT:[facility] [id number] [place] [id number] HARLEY,MDResponsible Observer: (rfl) INFECT. CONT REPORT NO None Last Documented On 4 9:53AM ; [facility] Note: Responsible Observer: (PA) Reported Physicians [facility] La boratory Ordered by KEYANNA VILLA MD on 03/03/20 24 [address] [place], [address] Collected: 03/03/2024 Report ed: 03/05/2024 09:44 tel:[phone] Last Documented On 3:33PM ; [facility] Reviewed on 03/13/2024; All test results are final unless otherwise noted. Reported Physicians See Note None Last Documented On 03/05/2024 9:53AM ; [facility] Note: Reported Physicians:Ordering: Keyanna Villa CAttending: KEYANNA VILLAConsulting: KEYANAN VILLA URINALYSIS/REFLEX C&S [facility] Laboratory Ordered by KEYANNA VILLA MD on 03/03/20 24 [address] [place], [address] Collected: 03/03/2024 Report ed: 03/03/2024 13:06 tel: Last Documented On 4 3:33PM ; [facility] Reviewed on 03/13/2024; All test results are final unless otherwise noted. AMORPH PHOS 1+ None Last Documented On 4 9:53AM ; [facility] Note: Responsible Observer: (JACLYN) BACTERIA Few (NORMAL: NONE) None Last Documented On 4 9:53AM ; [facility] Note: Responsible Observer: (JACLYN) BILIRUBIN NEGATIVE (Normal: Negative) None Last Documented On 4 9:53AM ; [facility] Note: Responsible Observer: (JACLYN) BLOOD NEGATIVE (Normal: Negative) None Last Documented On 4 9:53AM ; [facility] Note: Responsible Observer: (JACLYN) CASTS None seen (NORMAL: NONE) None Last Documented On 4 9:53AM ; [facility] Note: Responsible Observer: (JACLYN) CLARITY SL CLOUDY (Normal: Clear) None Last Documented On 4 9:53AM ; [facility] Note: Responsible Observer: (JACLYN) COLOR YELLOW (Normal: Straw - leon) None Last Documented On 4 9:53AM ; [facility] Note: Responsible Observer: (JACLYN) CRYSTALS See Below (NORMAL: 0 - 3 /hpf) None Last Documented On 4 9:53AM ; [facility] Note: Responsible Observer: (JACLYN) CULTURE TO FOLLOW None Last Documented On 4 9:53AM ; [facility] Note: MICROSCOPIC EXAMINATION IF NOT IND ICATED WILL NOT BE PERFORMEDResponsible Observer: (JACLYN) EPI CELLS 11-20 (NORMAL: NONE) None Last Documented On 4 9:53AM ; [facility] Note: Responsible Observer: (JACLYN) GLUCOSE NEGATIVE (Normal: Negative) None Last Documented On 4 9:53AM ; [facility] Note: Responsible Observer: (JACLYN) KETONE NEGATIVE (Normal: Negative) None Last Documented On 4 9:53AM ; [facility] Note: Responsible Observer: (JACLYN) LEUKOCYTE. 2+ (Normal: Negative) A (Abnormal) Last Documented On 4 9:53AM ; [facility] Note: Responsible Observer: (JACLYN) MICROSCOPIC? SEE BELOW None Last Documented On 4 9:53AM ; [facility] Note: MICROSCOPICResponsible Observer: ( JACLYN) MUCOUS NONE SEEN None Last Documented On 4 9:53AM ; [facility] Note: Responsible Observer: (JACLYN) NITRITE. NEGATIVE (Normal: Negative) None Last Documented On 4 9:53AM ; [facility] Note: Responsible Observer: (JACLYN) pH 8.0 (Normal: 5.0 - 9.0) None Last Documented On 4 9:53AM ; [facility] Note: Responsible Observer: (JACLYN) PROTEIN NEGATIVE (Normal: Negative) None Last Documented On 4 9:53AM ; [facility] Note: Responsible Observer: (JACLYN) RBC 0-2 (NORMAL: 0 - 3 /hpf) None Last Documented On 4 9:53AM ; [facility] Note: Responsible Observer: (JACLYN) SP GRAVITY 1.015 (Normal: 1.005-1.030) None Last Documented On 4 9:53AM ; [facility] Note: Responsible Observer: (JACLYN) TRICHOMONAS None Seen None Last Documented On 4 9:53AM ; [facility] Note: Responsible Observer: (JACLYN) UA SPECIMEN CVS (CLEAN VO None Last Documented On 4 9:53AM ; [facility] Note: Responsible Observer: (KLB) UROBILINOGEN 0.2 (Normal: Negative) None Last Documented On 4 9:53AM ; [facility] Note: Responsible Observer: (JACLYN) WBC 6-10 (NORMAL: 0 - 5 /hpf) A (Abnormal) Last Documented On 4 9:53AM ; [facility] Note: Responsible Observer: (JACLYN) YEAST None Seen None Last Documented On 4 9:53AM ; [facility] Note: Responsible Observer: (JACLYN) URINALYSIS/REFLEX C See Note None Last Documented On 4 9:53AM ; [facility] Note: URINALYSIS/REFLEX C&SResponsible O bserver: (JACLYN) .CULTURE URINE CLEAN VOID SPECIMEN [facility] Laboratory Ordered by KEYANNA VILLA MD on 03/03/20 [address] [facility] [place], [address] Collected: 03/03/2024 Report ed: 03/05/2024 09:41 tel:[phone] Last Documented On 3:33PM ; [facility] Reviewed on 03/13/2024; All test results are final unless otherwise noted. .CULTURE URINE CLEAN VOID SPECIMEN See Note None Last Documented On 03/05/2024 9:53AM ; [facility] Note: _URINE CULTURE_ _CVS_ INFECT. CONT REPORT NO None Last Documented On 03/05/2024 9:53AM ; [facility] Note: _COLONY_COUNT_<50,000._MIXED_FLORA,_SUGGEST_ REPEAT 03/05/2441.SEP. 03/05/24.DANG.COMPLETENOResponsible Observer: (DANG) HIV SCREEN Manual Lab Entry Ordered by KEYANNA VILLA MD on 11/27/19 Collected: 11/20/2023 Reported: 11/22/19 16:12 Last Documented On 4 3:56PM ; [facility] Reviewed on 11/27/2023; All test results are final unless otherwise noted. Review Note Provider Name Date Varicella IGM - Negative - 0.46 11/27/2023 HIV SCREEN Non-Reactive (Non-Reactive) N (Normal) Last Documented On 4 3:51PM ; [facility] RPR W/ REFLEX TITER Manual Lab Entry Ordered by KEYANNA VILLA MD on 11/27/19 Collected: 11/20/2023 Reported: 11/22/19 16:12 Last Documented On 4 3:56PM ; [facility] Reviewed on 11/27/2023; All test results are final unless otherwise noted. Review Note Provider Name Date Varicella IGM - Negative - 0.46 11/27/2023 RPR W/ REFLEX TITER Non-Reactive (Non-Reactive) N (Normal) Last Documented On 4 3:51PM ; [facility] CBC WITH DIFF [facility] La boratory Ordered by KEYANNA VILLA MD on 11/20/19 [address] [facility], [place], [address] Collected: 11/20/2023 Report ed: 11/20/2023 17:42 tel: Last Documented On 4 10:14AM ; [facility] Reviewed on 02/26/2024; All test results are final unless otherwise noted. ALC 1.9 None Last Documented On 4 5:55PM ; [facility] Note: Responsible Observer: (JACLYN) ANC 4.6 None Last Documented On 4 5:55PM ; [facility] Note: Responsible Observer: (JACLYN) BASO# 0.05 th/uL (0.00 - 0.20) None Last Documented On 4 5:55PM ; [facility] Note: Responsible Observer: (JACLYN) BASO% 0.7 % (0.0 - 2.0) None Last Documented On 4 5:55PM ; [facility] Note: Responsible Observer: (JACLYN) CBC WITH DIFF See Note None Last Documented On 4 5:55PM ; [facility] Note: CBC (COMPLETE BLOOD COUNT)Responsi ble Observer: (JACLYN) DIFF (Y/N) NO None Last Documented On 4 5:55PM ; [facility] Note: Responsible Observer: (JACLYN) EOS# 0.13 th/uL (0.00 - 0.45) None Last Documented On 4 5:55PM ; [facility] Note: Responsible Observer: (JACLYN) EOS% 1.8 % (0.0 - 9.0) None Last Documented On 4 5:55PM ; [facility] Note: Responsible Observer: (JACLYN) HCT 35.3 % (38.0 - 47.0) L (Low) Last Documented On 4 5:55PM ; [facility] Note: Responsible Observer: (JACLYN) HGB 11.6 g/dL (12.0 - 16.0) L (Low) Last Documented On 4 5:55PM ; [facility] Note: Responsible Observer: (JACLYN) IG# 0.02 th/ul (0.00 - 0.10) None Last Documented On 4 5:55PM ; [facility] Note: Responsible Observer: (JACLYN) IG% 0.3 % (0.0 - 0.5) None Last Documented On 4 5:55PM ; [facility] Note: Responsible Observer: (JACLYN) LYMPH# 1.92 th/uL (1.00 - 4.80) None Last Documented On 4 5:55PM ; [facility] Note: Responsible Observer: (JACLYN) LYMPH% 26.7 % (14.0 - 45.0) None Last Documented On 4 5:55PM ; [facility] Note: Responsible Observer: (JACLYN) MCH 26.6 pg (25.0 - 35.0) None Last Documented On 4 5:55PM ; [facility] Note: Responsible Observer: (JACLYN) MCHC 32.9 g/dL (31.0 - 36.0) None Last Documented On 4 5:55PM ; [facility] Note: Responsible Observer: (JCALYN) MCV 81.0 fl (80.0 - 100) None Last Documented On 4 5:55PM ; [facility] Note: Responsible Observer: (JACLYN) MONO# 0.48 th/uL (0.00 - 0.80) None Last Documented On 4 5:55PM ; [facility] Note: Responsible Observer: (JACLYN) MONO% 6.7 % (1.0 - 10.0) None Last Documented On 4 5:55PM ; [facility] Note: Responsible Observer: (JACLYN) MPV 11.8 fl (6.0 - 11.0) H (High) Last Documented On 4 5:55PM ; [facility] Note: Responsible Observer: (JACLYN) NEUT# 4.60 th/uL None Last Documented On 4 5:55PM ; [facility] Note: Responsible Observer: (JACLYN) NEUT% 63.8 % (45.0 - 76.0) None Last Documented On 4 5:55PM ; [facility] Note: Responsible Observer: (JACLYN) NRBC% 0.0 % (0.0 - 0.0) None Last Documented On 4 5:55PM ; [facility] Note: Responsible Observer: (JACLYN) PLT 227 th/uL (150 - 400) None Last Documented On 4 5:55PM ; [facility] Note: Responsible Observer: (JACLYN) RBC 4.36 mil/uL (4.50 - 5.90) L (Low) Last Documented On 4 5:55PM ; [facility] Note: Responsible Observer: (JACLYN) RDW 13.6 % (11.0 - 16.0) None Last Documented On 4 5:55PM ; [facility] Note: Responsible Observer: (JACLYN) WBC 7.2 th/uL (4.5 - 11.0) None Last Documented On 4 5:55PM ; [facility] Note: Responsible Observer: (JACLYN) ABO GROUP & RH TYPE [facility] La boratory Ordered by KEYANNA VILLA MD on 11/20/19 [address] [facility] [place], [address] Collected: 11/20/2023 Report ed: 11/20/2023 18:21 tel:[phone] Last Documented On 4 10:14AM ; [facility] Reviewed on 02/26/2024; All test results are final unless otherwise noted. ABO GROUP See Note None Last Documented On 02/25/2024 5:55PM ; [facility] Note: GROUP AND TYPEBResponsible Observer: (JACLYN) Rh TYPE Negative None Last Documented On 02/25/2024 5:55PM ; [facility] Note: Responsible Observer: (JACLYN) RPR (RAPID PLASMA REAGIN) [facility] Laboratory Ordered by KEYANNA VILLA MD on 11/20/19 24 [address] [facility], [place], [address] Collected: 11/20/2023 Report ed: 11/22/2023 16:12 tel:[phone] Last Documented On 4 10:14AM ; [facility] Reviewed on 02/26/2024; All test results are final unless otherwise noted. RPR (DX) W/REFL [facility] CONFIRMATORY TESTING NON-REACTIVE (NON-REACTIVE) N (Normal) Last Documented On 4 5:55PM ; [facility] Note: No laboratory evidence of syphilis . If recent exposureis suspected, submit a new sample in 2-4 weeks.THIS TEST WAS PERFORMED AT:[facility] [id number] [place] [id number] VO,MDResponsible Observer: (rfl) INFECT. CONT REPORT NO None Last Documented On 4 5:55PM ; [facility] Note: Responsible Observer: (TER) Reported Physicians [facility] [place] Ordered by KEYANNA VILLA MD on 11/20/19 24 [address] [facility], [place], [address] Collected: 11/20/2023 Report ed: 11/30/2023 07:43 tel:[phone] Last Documented On 10:14AM ; [facility] Reviewed on 02/26/2024; All test results are final unless otherwise noted. Reported Physicians See Note None Last Documented On 02/25/2024 5:55PM ; [facility] Note: Reported Physicians:Ordering: Keyanna Villa CAttending: KEYANNA VILLAConsulting: KEYANNA VILLA RUBELLA IMMUNE STATUS Manual Lab Entry Ordered by KEYANNA VILLA MD on 11/27/19 Collected: 11/20/2023 Reported: 11/22/19 16:11 Last Documented On 4 3:56PM ; [facility] Reviewed on 11/27/2023; All test results are final unless otherwise noted. Review Note Provider Name Date Varicella IGM - Negative - 0.46 11/27/2023 Rubella Antibody Immune 2.03 (N) N (Normal) Last Documented On 4 3:51PM ; [facility] HSV-1 Manual Lab Entry Ordered by KEYANNA VILLA MD on 11/27/19 Collected: 11/20/2023 Reported: 11/23/19 12:35 Last Documented On 4 3:56PM ; [facility] Reviewed on 11/27/2023; All test results are final unless otherwise noted. Review Note Provider Name Date Varicella IGM - Negative - 0.46 11/27/2023 HSV-1 <0.90 Negative (N) N (Normal) Last Documented On 4 3:51PM ; [facility] DRUGS OF ABUSE SCREEN (DONE IN HOUSE) [facility] Laboratory Ordered by KEYANNA VILLA MD on 11/20/19 [address], [place], [address] Collected: 11/20/2023 Report ed: 11/20/2023 18:01 tel:[phone] Last Documented On 4 10:14AM ; [facility] Reviewed on 02/26/2024; All test results are final unless otherwise noted. Amphetamines NEGATIVE (NORMAL: NEGATIVE) None Last Documented On 4 5:55PM ; [facility] Note: Responsible Observer: (TER) Barbiturates NEGATIVE (NORMAL: NEGATIVE) None Last Documented On 4 5:55PM ; [facility] Note: Responsible Observer: (TER) Benzodiazepines NEGATIVE (NORMAL: NEGATIVE) None Last Documented On 4 5:55PM ; [facility] Note: Responsible Observer: (TER) Buprenorphine NEGATIVE (NORMAL: NEGATIVE) None Last Documented On 4 5:55PM ; [facility] Note: TCA - Tricyclic AntidepressantsW ARNING! THIS TEST IS TO BE USED SOLELY FOR THE MEDICAL EVALUATION OF THEPATIENT.This screening test is a qualitative immunoassay. The concentration of drugand/or drug metabolites present in the urine specimen cannot be estimated.This test differentiates between positive and negative specimens at thedesignated cut-off concentrations.Responsible Observer: (TER) Cocaine NEGATIVE (NORMAL: NEGATIVE) None Last Documented On 4 5:55PM ; [facility] Note: Responsible Observer: (TER) DRUGS OF ABUSE SCREEN (DONE IN HOUSE) See Note None Last Documented On 4 5:55PM ; [facility] Note: Drugs of Abuse ScreenResponsible O bserver: (TER) Methadone NEGATIVE (NORMAL: NEGATIVE) None Last Documented On 4 5:55PM ; [facility] Note: Responsible Observer: (TER) Methamphetamines NEGATIVE (NORMAL: NEGATIVE) None Last Documented On 4 5:55PM ; [facility] Note: Responsible Observer: (TER) Opiates NEGATIVE (NORMAL: NEGATIVE) None Last Documented On 4 5:55PM ; [facility] Note: Responsible Observer: (TER) Oxycodone NEGATIVE (NORMAL: NEGATIVE) None Last Documented On 4 5:55PM ; [facility] Note: Responsible Observer: (TER) PCP(Phencyclidine) NEGATIVE (NORMAL: NEGATIVE) None Last Documented On 4 5:55PM ; [facility] Note: Responsible Observer: (TER) TCA NEGATIVE (NORMAL: NEGATIVE) None Last Documented On 4 5:55PM ; [facility] Note: Responsible Observer: (TER) THC NEGATIVE (NORMAL: NEGATIVE) None Last Documented On 4 5:55PM ; [facility] Note: Responsible Observer: (TER) URINALYSIS WITH RELFEX TO MICROSCOPY [facility] Laboratory Ordered by KEYANNA VILLA MD on 11/20/19 24 [address], [place], [address] Collected: 11/20/2023 Report ed: 11/20/2023 17:50 tel:[phone] Last Documented On 4 10:14AM ; [facility] Reviewed on 02/26/2024; All test results are final unless otherwise noted. BILIRUBIN NEGATIVE (Normal: Negative) None Last Documented On 4 5:55PM ; [facility] Note: Responsible Observer: (TER) BLOOD NEGATIVE (Normal: Negative) None Last Documented On 4 5:55PM ; [facility] Note: Responsible Observer: (TER) CLARITY CLEAR (Normal: Clear) None Last Documented On 4 5:55PM ; [facility] Note: Responsible Observer: (TER) COLOR YELLOW (Normal: Straw - leon) None Last Documented On 4 5:55PM ; [facility] Note: Responsible Observer: (TER) GLUCOSE NEGATIVE (Normal: Negative) None Last Documented On 4 5:55PM ; [facility] Note: Responsible Observer: (TER) KETONE NEGATIVE (Normal: Negative) None Last Documented On 4 5:55PM ; [facility] Note: Responsible Observer: (TER) LEUKOCYTE NEGATIVE (Normal: Negative) None Last Documented On 4 5:55PM ; [facility] Note: Responsible Observer: (TER) MICROSCOPIC NOT INDICATED None Last Documented On 4 5:55PM ; [facility] Note: MICROSCOPIC EXAMINATION IF NOT IND ICATED WILL NOT BE PERFORMEDResponsible Observer: (TER) NITRITE NEGATIVE (Normal: Negative) None Last Documented On 4 5:55PM ; [facility] Note: Responsible Observer: (TER) pH 6.0 (Normal: 5.0 - 9.0) None Last Documented On 4 5:55PM ; [facility] Note: Responsible Observer: (TER) PROTEIN NEGATIVE (Normal: Negative) None Last Documented On 4 5:55PM ; [facility] Note: Responsible Observer: (TER) SP GRAVITY 1.025 (Normal: 1.005-1.030) None Last Documented On 4 5:55PM ; [facility] Note: Responsible Observer: (TER) UA SPECIMEN CVS (CLEAN V None Last Documented On 4 5:55PM ; [facility] Note: Responsible Observer: (TER) UROBILINOGEN 0.2 (Normal: Negative) None Last Documented On 4 5:55PM ; [facility] Note: Responsible Observer: (TER) URINALYSIS WITH RELFEX TO MICROSCOPY See Note None Last Documented On 4 5:55PM ; [facility] Note: URINALYSIS W REFLEX TO MICROSCOPYR esponsible Observer: (TER) CULTURE URINE WITH COLONY COUNT [facility] Laboratory Ordered by KEYANNA VILLA MD on 11/20/19 24 [address] [place], [address] Collected: 11/20/2023 Report ed: 11/22/2023 07:38 tel: Last Documented On 10:14AM ; [facility] Reviewed on 02/26/2024; All test results are final unless otherwise noted. UA SPECIMEN CVS (CLEAN None Last Documented On 02/25/2024 5:55PM ; [facility] Note: Responsible Observer: (MLB) CULTURE URINE WITH COLONY COUNT See Note None Last Documented On 02/25/2024 5:55PM ; [facility] Note: _URINE CULTURE_ INFECT. CONT REPORT NO None Last Documented On 02/25/2024 5:55PM ; [facility] Note: _COLONY_COUNT_<20,000_MIXED_GRAM_POSITIVE_FLORA . 11/22/23.0738.MLB. 11/22/23.0738.MLB.COMPLETECVS (CLEANNOResponsible Observer: (MLB) HEPATITIS B SURFACE ANTIGEN [facility] Laboratory Ordered by KEYANNA VILLA MD on 11/20/19 [address] , [place], [address] Collected: 11/20/2023 Report ed: 11/22/2023 16:11 tel: Last Documented On 4 10:14AM ; [facility] Reviewed on 02/26/2024; All test results are final unless otherwise noted. HEPATITIS B SURFACEANTIGEN NON-REACTIVE (NON-REACTIVE) N (Normal) Last Documented On 4 5:55PM ; [facility] Note: For additional information, please refer tohttp://education.Connect2me/faq/IFG755(This link is being provided for informational/educational purposes only.)THIS TEST WAS PERFORMED AT:[facility] [id number] [place] [id number] VO,MDResponsible Observer: (rfl) RUBELLA [facility] La boratory Ordered by KEYANNA VILLA MD on 11/20/19 24 [address] , [place], [address] Collected: 11/20/2023 Report ed: 11/22/2023 16:11 tel: Last Documented On 4 10:14AM ; [facility] Reviewed on 02/26/2024; All test results are final unless otherwise noted. RUBELLA AB (IGG), IMMUNESTATUS 2.03 Index N (Normal) Last Documented On 02/25/2024 5:55PM ; [facility] Note: Index Interpretation ----- <0.90 Not consistent with immunity 0.90-0.99 Equivocal > or = 1.00 Consistent with immunityThe presence of rubella IgG antibody suggestsimmunization or past or current infection withrubella virus.THIS TEST WAS PERFORMED AT:[id number] [place] [address]EMYN-HITT VO,MDResponsible Observer: (rfl) HIV TEST [facility] La boratory Ordered by KEYANNA VILLA MD on 11/20/19 24 [address] [facility], [place], [address] Collected: 11/20/2023 Report ed: 11/22/2023 16:12 tel: Last Documented On 4 10:14AM ; [facility] Reviewed on 02/26/2024; All test results are final unless otherwise noted. HIV AG/AB, 4TH GEN NON-REACTIVE (NON-REACTIVE) N (Normal) Last Documented On 4 5:55PM ; [facility] Note: HIV-1 antigen and HIV-1/HIV-2 anti bodies were notdetected. There is no laboratory evidence of HIVinfection.PLEASE NOTE: This information has been disclosed toyou from records whose confidentiality may beprotected by state law. If your state requires suchprotection, then the state law prohibits you frommaking any further disclosure of the informationwithout the specific written consent of the personto whom it pertains, or as otherwise permitted by law.A general authorization for the release of medical orother information is NOT sufficient for this purpose.For additional information please refer tohttp://education.Connect2me/faq/OPH464(This link is being provided for informational/educational purposes only.)The performance of this assay has not been clinicallyvalidated in patients less than 2 years old.THIS TEST WAS PERFORMED AT:[facility] [id number] [place] [id number] VO,MDResponsible Observer: (rfl) INFECT. CONT REPORT NO None Last Documented On 4 5:55PM ; [facility] Note: Responsible Observer: (TER) VARICELLA-ZOSTER VIRUS IGG ANTIBODY [facility] Laboratory Ordered by KEYANNA VILLA MD on 11/20/19 [address], [place], [address] Collected: 11/20/2023 Report ed: 11/22/2023 16:12 tel: Last Documented On 4 10:14AM ; [facility] Reviewed on 02/26/2024; All test results are final unless otherwise noted. VARICELLA ZOSTER VIRUSANTIBO DY (IGG) <135.00 index L (Low) Last Documented On 02/25/2024 5:55PM ; [facility] Note: Index Interpretation --------- <135.00 Negative - Antibody not detected 135.00 - 164.99 Equivocal > or = 165.00 Positive - Antibody detected A positive result indicates that the patient has antibody to VZV but does not differentiate between an active or past infection. The clinical diagnosis must be interpreted in conjunction with the clinical signs and symptoms of the patient. This assay reliably measures immunity due to previous infection but may not be sensitive enough to detect antibodies induced by vaccination. Thus, a negative result in a vaccinated individual does not necessarily indicate susceptibility to VZV infection. A more sensitive test for vaccination-induced immunity is Varicella Zoster Virus Antibody Immunity Screen, ACIF.THIS TEST WAS PERFORMED AT:[facility] [id number] [place] [id number] VO,MDResponsible Observer: (rfl) HEPATITIS C ANTIBODY WITH REFLEX TO HCV [facility] Laboratory Ordered by KEYANNA VILLA MD on 11/20/19 [address] [facility], [place], [address] Collected: 11/20/2023 Report ed: 11/22/2023 16:13 tel: Last Documented On 4 10:14AM ; [facility] Reviewed on 02/26/2024; All test results are final unless otherwise noted. HEPATITIS C ANTIBODY WITH RE FLEX TO HCV See Note None Last Documented On 02/25/2024 5:55PM ; [facility] Note: _HEPATITIS C ANTIBODY_HEPATITIS C AB W/REFL TO HCV RNA, QN, PCRReported: 11/22/2023 11:00 Status=F TEST RESULT FLAG RANGE UNITS HEPATITIS C ANTIBODY NON-REACTIVE N NON-REACTIVE 11/22/23.1324.rfl.COMPLETE.AMLRHCV antibody was non-reactive. There is no laboratoryevidence of HCV infection.In most cases, no further action is required. However,if recent HCV exposure is suspected, a test for HCV RNA(test code 95899) is suggested.For additional information please refer tohttp://education.Connect2me/faq/JWQ03j6 (This link is being provided for informational/educational purposes only.)THIS TEST WAS PERFORMED AT:[facility] [id number] [place] [id number]-TCJJ VO,MD INFECT. CONT REPORT NO None Last Documented On 02/25/2024 5:55PM ; [facility] Note: Responsible Observer: (TER) HERPES SIMPLEX I & II IgG [facility] Laboratory Ordered by KEYANNA VILLA MD on 11/20/19 24 [address] [place], [address] Collected: 11/20/2023 Report ed: 11/23/2023 12:35 tel: Last Documented On 10:14AM ; [facility] Reviewed on 02/26/2024; All test results are final unless otherwise noted. HSV 1 IGG, TYPE SPECIFICAB <0.90 index N (Normal) Last Documented On 02/25/2024 5:55PM ; [facility] Note: Responsible Observer: camryn) HSV 2 IGG, TYPE SPECIFICAB <0.90 index N (Normal) Last Documented On 02/25/2024 5:55PM ; [facility] Note: Index Interpretation ----- <0.90 Negative 0.90-1.09 Equivocal >1.09 PositiveThis assay utilizes recombinant type-specific antigensto differentiate HSV-1 from HSV-2 infections. Apositive result cannot distinguish between recent andpast infection. If recent HSV infection is suspectedbut the results are negative or equivocal, the assayshould be repeated in 4-6 weeks. The performancecharacteristics of the assay have not been establishedfor pediatric populations, immunocompromised patients,or screening.For additional information, please refer tohttp://education.SpeakGlobal/faq/SIB753(This link is being provided for informational/educational purposes only.)THIS TEST WAS PERFORMED AT:[facility] [id number] [place] [id number]-[id number] VO,MDResponsible Observer: (natalie) VARICELLA-ZOSTER VIRUS IGM ANTIBODY [facility] Laboratory Ordered by KEYANNA VLILA MD on 11/20/19 24 [address] [place], [address] Collected: 11/20/2023 Report ed: 11/27/2023 09:03 tel: Last Documented On 10:14AM ; [facility] Reviewed on 02/26/2024; All test results are final unless otherwise noted. VARICELLA ZOSTER VIRUSANTIBO DY (IGM) 0.42 N (Normal) Last Documented On 02/25/2024 5:55PM ; [facility] Note: Reference range: < or = 0.90Interpretive criteria: 0.00-0.90 Negative 0.91-1.09 Equivocal > or = 1.10 PositiveResults from any one IgM assay should not be used as a soledeterminant of a current or recent infection. Because anIgM test can yield false positive results and low levels ofIgM antibody may persist for more than 12 months postinfection, reliance on a single test result could bemisleading. If an acute infection is suspected, considerobtaining a new specimen and submit for both IgG and IgMtesting in two or more weeks.THIS TEST WAS PERFORMED AT:[facility]/[address] [id number] [place] [address]GUVOSSHALONDA CARLISLE MD,PHD,MBAResponsible Observer: (rfl) CYSTIC FIBROSIS SCREEN [facility] Laboratory Ordered by KEYANNA VILLA MD on 11/20/19 24 [address] [facility], [place], [address] Collected: 11/20/2023 Report ed: 11/30/2023 07:43 tel: Last Documented On 10:14AM ; [facility] Reviewed on 02/26/2024; All test results are final unless otherwise noted. CF RESULT NEGATIVE (NEGATIVE) None Last Documented On 02/25/2024 5:55PM ; [facility] Note: NEGATIVE; NONE OF THE MUTATIONS LISTED BELOW WERE DETECTEDResponsible Observer: (rfl) INTERPRETATION SEE NOTE None Last Documented On 02/25/2024 5:55PM ; [facility] Note: This result does not rule out the presence of a mutation ora diagnosis of cystic fibrosis disease (CF). The risk formutations that cause CF other than the ones tested dependsgreatly on family history, clinical presentation, andethnicity. Chance of Having a CF MutationEthnic Group Detection Before After Negative Rate Test ResultAshkenazi Sabianist 94% 1 in 24 1 in 400Non- 88% 1 in 25 1 in 208CaucasianHispanic-Ethiopian 72% 1 in 46 1 in 164African-Ethiopian 65% 1 in 65 1 in 186Asian-Ethiopian 49% 1 in 94 1 in 184Other insufficient data availableHealth care providers, please contact your local [employer] genetic counselor or call [employer] at [employer] ([phone]) for assistance withinterpretation of these results.Responsible Observer: (rfl) MUTATIONS/POLYMORPHISMS SEE NOTE None Last Documented On 02/25/2024 5:55PM ; [facility] Note: MUTATIONS ANALYZED:G85E (c.254G>A) S549N (c.1646G>A)394delTT (c.262delTT) G551D (c.1652G>A)R117H (c.350G>A) R553X (c.1657C>T)621+1 G>T (c.489+1G>T) R560T (c.1679G>C)711+1 G>T (c.579+1G>T) 1898+1 G>A (c.1766+1G>A)1078delT (c.948delT) 2183AA>G (c.2051delAAinsG)R334W (c.1000C>T) 2184delA (c.2052delA)R347H (c.1040G>A) 2789+5 G>A (c.2657+5G>A)R347P (c.1040G>C) 3120+1 G>A (c.2988+1G>A)A455E (c.1364C>A) H4222H (c.3484C>T)U576rio (c.1519delATC) 3659delC (c.3528delC)M823ffi (c.1521delCTT) 3849+10kb C>T (c.3717+12558W>T)V520F (c.1558G>T) 3876delA (c.3744delA)1717-1 G>A (c.1585-1G>A) 3905insT (c.3773insT)G542X (c.1624G>T) Z8957Z (c.3846G>A)S549R (c.1645A>C or c.1647T>G) U7724P (c.3909C>G)This assay detects thirty-two mutations, including thetwenty-three core mutations recommended by the AmericanCollege of Medical Genetics (ACMG) and the [place] Congressof Obstetricians and Gynecologists (ACOG) forpopulation-based CF carrier screening. In addition to theACMG/ACOG panel, this assay detects nine additionalmutations. While these mutations are rare in the USpopulation, the scientific and medical literature indicatesthat these mutations are not benign polymorphisms. Thestatus of the intron 9 (formerly intron 8) polyT tract isreported only when the R117H mutation is detected.Responsible Observer: (rfl) METHOD SEE NOTE None Last Documented On 02/25/2024 5:55PM ; [facility] Note: The mutations are detected by multiplex-polymerase chainreaction (PCR) amplification of specific CF gene regions,followed by nucleotide sequence analysis on a massivelyparallel sequencing platform. Although rare, false positiveor false negative results may occur. All results should beinterpreted in the context of clinical findings, relevanthistory, and other laboratory data.Responsible Observer: (rfl) REVIEWER SEE NOTE None Last Documented On 02/25/2024 5:55PM ; [facility] Note: A portion of the testing was performed at [facility] [place]Laboratory results and submitted clinical informationreviewed by Chet Russ, Ph.D., [facility], [facility].For additional information, please refer tohttp://education.TechTol Imaging.Boost Media/faq/cfscreen(This link is being provided for informational/educationalpurposes only.)This test was developed and its analytical performancecharacteristics have been determined by [employer].It has not been cleared or approved by FDA. This assay hasbeen validated pursuant to the CLIA regulations and is usedfor clinical purposes.THIS TEST WAS PERFORMED AT:[facility]/GODFREY [id number] [facility] [place] [address]OFPFSSHALONDA CARLISLE MD,PHD,MBAResponsible Observer: (rfl) ETHNICITY: WB None Last Documented On 02/25/2024 5:55PM ; [facility] Note: Responsible Observer: (rfl) CF PARTNER: NO None Last Documented On 02/25/2024 5:55PM ; [facility] Note: Responsible Observer: (CET) ANTIBODY SCREEN [facility] La boratory Ordered by KEYANNA VILLA MD on 11/20/19 [address] [place], [address] Collected: 11/20/2023 Report ed: 11/20/2023 18:21 tel: Last Documented On 10:14AM ; [facility] Reviewed on 02/26/2024; All test results are final unless otherwise noted. ANTIBODY SCREEN NONE DETECTED None Last Documented On 02/25/2024 5:55PM ; [facility] Note: Responsible Observer: (JACLYN) HEPATITS B SURFACE ANTIGEN Manual Lab En try Ordered by KEYANNA VILLA MD on 11/27/19 Collected: Reported: 11/22/2023 16:11 Last Documented On 4 3:56PM ; [facility] Reviewed on 11/27/2023; All test results are final unless otherwise noted. Review Note Provider Name Date Varicella IGM - Negative - 0.46 11/27/2023 HEPATITS B SURFACE ANTIGEN Non-Reactive (Non-Reactive) N (Normal) Last Documented On 4 3:51PM ; [facility] Varicella Manual Lab Entry Ordered by KEYANNA VILLA MD on 11/27/19 Collected: Reported: 11/22/2023 16:12 Last Documented On 4 3:56PM ; [facility] Reviewed on 11/27/2023; All test results are final unless otherwise noted. Review Note Provider Name Date Varicella IGM - Negative - 0.46 11/27/2023 Varicella IgG <135.00 Negative (L) N (Normal) Last Documented On 4 3:51PM ; [facility] HSV-2 Manual Lab Entry Ordered by KEYANNA VILLA MD on 11/27/19 Collected: Reported: 11/23/2023 12:35 Last Documented On 4 3:56PM ; [facility] Reviewed on 11/27/2023; All test results are final unless otherwise noted. Review Note Provider Name Date Varicella IGM - Negative - 0.46 11/27/2023 HSV-2Ab,IgG <0.90 Negative (n) N (Normal) Last Documented On 4 3:51PM ; [facility] History of Present Illness History of Present Illness not supported for this document type No History of Present Illness Recorded Social History Description Last Updated Not using alcohol 10/30/2023 Last Documented On 4 11:14AM ; [facility] Sexually active 10/30/2023 Last Documented On 4 11:14AM ; [facility] Sexually active with 1 partners in the l ast year 10/30/2023 Last Documented On 4 11:14AM ; [facility] Does not have anal sex 10/30/2023 Last Documented On 4 11:14AM ; [facility] Former smoker 10/30/2023 Last Documented On 4 11:14AM ; [facility] Has not used injectable drugs 10/30/2023 Last Documented On 4 11:14AM ; [facility] Has sex with males only 10/30/2023 Last Documented On 4 11:14AM ; [facility] Have you ever had sex (vaginal or penis in anus or rectum)? 10/30/2023 Last Documented On 4 11:14AM ; [facility] No consumption of alcohol 10/30/2023 Last Documented On 4 11:14AM ; [facility] No drug use by a sexual partner 10/30/19 24 Last Documented On 4 11:14AM ; [facility] Not using drugs 10/30/2023 Last Documented On 4 11:14AM ; [facility] Partner has not had a STD in the past ye ar 10/30/2023 Last Documented On 4 11:14AM ; [facility] Patient does not report having sex when she didn't want to 10/30/2023 Last Documented On 4 11:14AM ; [facility] Patient has not had sex unde r the influence of alcohol or drugs in the last year 10/30/2023 Last Documented On 4 11:14AM ; [facility] Sexual partner has not had o ther partners while in relationship with patient 10/30/2023 Last Documented On 4 11:14AM ; [facility] Sexual partner has not had sex with pros titutes 10/30/2023 Last Documented On 4 11:14AM ; [facility] Stopped smoking years ago 08/2023 Last Documented On 4 11:14AM ; [facility] Smoking Status Unknown Procedures and Surgical History Includes: Procedures from 11/10/2023 through 11/10/2024 Procedures Code Diagnosis Performing Provider Service L ocation Service Date CLINIC VISIT T1015 Encntr for suprv sn of normal first preg, second trimester KEYANNA VILLA MD [facility] 03/03/2024 Last Documented On 4 6:24PM ; [facility] CLINIC VISIT T1015 Encntr for suprv sn of normal first preg, second trimester KEYANNA VILLA MD [facility] 02/18/2024 Last Documented On 4 6:24PM ; [facility] CLINIC VISIT T1015 Encntr for suprv sn of normal first preg, second trimester KEYANNA VILLA MD [facility] 01/20/2024 Last Documented On 4 2:32PM ; [facility] VISIT T1015 Encntr for suprv sn of normal first preg, second trimester KEYANNA VILLA MD [facility] 12/23/2023 Last Documented On 4 4:06PM ; [facility] VISIT T1015 Encntr for suprv sn of normal first preg, first trimester, Oth mental disorders complicating , first trimester KEYANNA VILLA MD [facility] 11/20/2023 Last Documented On 4 2:55PM ; [facility] Medical History Includes: Medical History in patient's chart Description Last Updated History of breast disorders 11/20/2023 Last Documented On 4 4:08PM ; [facility] History of depression 11/20/2023 Last Documented On 4 4:08PM ; [facility] History of hematologic disorder 11/20/19 24 Last Documented On 4 4:08PM ; [facility] Physical trauma 11/20/2023 Last Documented On 4 4:08PM ; [facility] LMP: 09/02/2023 10/30/2023 Last Documented On 4 11:14AM ; [facility] No previous STD 10/30/2023 Last Documented On 4 11:14AM ; [facility] No. of Pregnancies: 1 10/30/2023 Last Documented On 4 11:14AM ; [facility] Family History Includes: Family History in patient's chart No Family History Recorded Review of Systems Review of Systems not supported for this document type No Review of Systems Recorded Mental Status No Mental Status Recorded Functional Status No Functional Status Recorded Physical Exam Physical Exam not supported for this document type No Physical Exam Recorded Allergies Includes: Active, inactive, and resolved Allergies No Known Allergies Encounters Includes: Encounters from 11/10/2023 through 11/10/2024 Encounter Provider Location Date Check-In Time Check-Out Time Diagnosis RETURN OB EXAM KEYANNA VILLA MD [facility] 03/03/20 8:53AM 9:54AM RETURN OB EXAM KEYANNA VILLA MD [facility] 02/18/20 11:04AM 12:04PM * PHONE CALL KEYANNA VILLA MD 02/12/20 24 01/20/2024 9:26AM 01/20/2024 11:59PM RETURN OB EXAM KEYANNA VILLA MD [facility] 01/20/20 24 1:29PM 2:14PM * PHONE CALL [facility] 01/10/20 24 12/23/2023 2:47PM 12/23/2023 11:59PM RETURN OB EXAM KEYANNA VILLA MD [facility] 12/23/19 24 11:18AM 11:57AM * PHONE CALL KEYANNA VILLA MD 12/09/19 24 11/20/2023 10:00AM 11/20/2023 11:59PM NEW OB EXAM ESTABLISHED PATIENT KEYANNA VILLA MD [facility] 11/20/19 2:56PM 4:10PM Insurance Includes: Active Insurance Policies Plan Name Member ID Group # Subscriber Relationship Effect lizy Dates 1 - MEDICAID [facility] [facility] [id number] [place] Clarke Clinical Notes Includes: Signed Clinical Notes starting from 10/19/2022 * Progress note Date Encounter Last Documented by 03/03/2024 RETURN OB EXAM Last documented on 03/03/2024; 9:44 AM, KEYANNA VILLA MD; [facility] History of Present Illness CLEVELAND SANTOS is a 18 year old female. - Allergy list reviewed - Medication list reviewed Current Medication - Vitamins Oral Tablet 0 days, 0 refills - Sertraline HCl 50 MG Oral Tablet One tablet daily, 16 days, 0 refills Allergies - No Known Allergies Physical Findings - Vitals taken 03/03/2024 09:16 am BP-Sitting R 118/68 mmHg BP Cuff Size Regular Temp-Temporal 98.7 F Weight 190 lbs OB Visit Return Visit Risk Factors Family History of Disorders of Blood and Blood-forming Organs (Score: 0) History of Breast Disorders (Score: 0) History of Depression (Score: 0) History of Hematologic Disorders (Score: 0) History of Renal Disease (Score: 0) History of Reported Physical Trauma (Score: 0) (Score: 0) Age: 18y : 1 FT: 0 : 0 Ab: 0 Zoherh: 0 DON: 06/08/2024 (by LMP) Gestational Age: 26 weeks 1 day Weight: 190 lb Baseline Weight: 174 lb Weight Change: +16 lb UA Dipstick Protein: Negative Glucose: Negative Nitrite: Negative Leukocyte: ++ Blood: Negative Ketones: + Movement (as per patient): positive Uterine Size/Fundal Height: 27 cm Heart Rate: 135 bpm Edema: None Jesse present today. Pt is feeling good baby movement. 26 week labs have been started. No concerns today. needs rpt u/s to finish anatomy; Plan StartCited - Encntr for suprvsn of normal first preg, second trimester Lab: CBC WITH DIFF Lab: URINALYSIS /REFLEX C&S Lab: ANTIBODY SCREEN Lab: GTT 1 HOUR GLUCOSE Lab: RPR (RAPID PLASMA REAGIN) EndCited StartCited - Other Follow-up 26 wk labs today; return OB visit in 4 weeks then every 2 (30 min). EndCited * Progress note Date Encounter Last Documented by 02/18/2024 RETURN OB EXAM Last documented on 02/18/2024; 11:58 AM, KEYANNA VILLA MD; [facility] History of Present Illness CLEVELAND SANTOS is a 18 year old female. - Allergy list reviewed - Medication list reviewed Current Medication - Vitamins Oral Tablet 0 days, 0 refills - Sertraline HCl 50 MG Oral Tablet One tablet daily, 16 days, 0 refills Pt still not taking sertraline.......02/18/24 ed Allergies - No Known Allergies Physical Findings - Vitals taken 02/18/2024 11:21 am BP-Sitting 116/64 mmHg Temp-Oral 98.3 F Weight 185 lbs OB Visit Return Visit Risk Factors Family [...] 0 DON: 06/08/2024 (by LMP) Gestational Age: 24 weeks 1 day Weight: 185 lb Baseline Weight: 174 lb Weight Change: +11 lb UA Dipstick Protein: Negative Glucose: Negative Nitrite: Negative Leukocyte: Negative Blood: Negative Ketones: Negative Movement (as per patient): positive Uterine Size/Fundal Height: 24 cm Heart Rate: 140 bpm Edema: None Karlena, pts grandmother present today; Pt states she fees good baby movement, and feels him in her pelvic area. Pt was sent to L&D 02/11 for nausea, dizzy, light headed, and has happened twice since then. She thinks its from getting to hot: 26 wk labs in 2 wks; needs f/u u/s to finish anatomy screen; needs to pick pede. Plan StartCited - Matern care for oth or susp poor fetl grth, 2nd tri, unsp Ultrasound (OB)/ULTRASOUND: FOLLOW -UP OB U/S Instructions: S<D; growth; needs to finish anatomy screen; (last u/s 02/04/24 at [facility] EndCited StartCited - Other PHY ORDER/COMMENT needs 26 wk labs in 2 wks at next visit B neg so does need antibody screen, too. Follow-up needs f/u u/s to finish anatomy screen about a month after last u/s; return OB visit in 2 wks with 26 wk labs (30 min). EndCited * Progress note Date Encounter Last Documented by 02/12/2024 * PHONE CALL Last documented on 02/12/2024; 3:33 PM, KEYANNA VILLA MD; [facility] OB Visit Return Visit Risk [...] 119. (She gets it checked at the [employer] where she works.) She had eaten two [employer] breakfast bars along with some water. She said she drinks 24 ounces of water 3 times a day and has a 32 ounce soda every couple of days.Pt was advised to go to L&D for evaluation. DG at L&D: FHT's: 130's, no ctx's; BP's NOT orthostatic; urine: no UTI; home: balanced nutrition, keep office visit next wk, likely 26 wk labs early; * Progress note Date Encounter Last Documented by 01/20/2024 RETURN OB EXAM Last documented on 01/20/2024; 2:09 PM, KEYANNA VILLA MD; [facility] History of Present Illness CLEVELAND NORIEGAE is a 18 year old female. - Allergy list reviewed - Medication list reviewed Current Medication - Vitamins Oral Tablet 0 days, 0 refills - Sertraline HCl 50 MG Oral Tablet One tablet daily, 16 days, 0 refills Allergies - No Known Allergies Physical Findings - Vitals taken 01/20/2024 01:48 pm BP-Sitting 100/60 mmHg Temp-Oral 98.7 F Weight 178 lbs OB Visit Return Visit Risk Factors Family [...] 0 DON: 06/08/2024 (by LMP) Gestational Age: 20 weeks Weight: 178 lb Baseline Weight: 174 lb Weight Change: +4 lb UA Dipstick Protein: Negative Glucose: Negative Nitrite: Negative Leukocyte: Negative Blood: Negative Ketones: Negative Movement (as per patient): positive Uterine Size/Fundal Height: 18 w Heart Rate: 145 bpm Edema: None Reliance, pts dad, present today. Pt states she feels good baby movement and is worried about GDM. Her sugar was 35 one day and 140 another day: complex carbohydrates are discussed and pt with a family history of glycemic control issues knows she needs to manage bettter; 26 wk labs as planned; pt did not draw Penta test, declines to do today (last day available); will schedule anatomy screen u/s with size < dates; needs to pick pede; classes; Plan StartCited - Matern care for oth or susp poor fetl grth, 2nd tri, unsp Ultrasound (OB)/U/S: COMPLETE OB U/S >/= 14 WKS , SINGLE FETUS Instructions: size < dates; anatomy screen also With Cervical Length if patient is between 20-22 weeks gestation; EndCited StartCited - Other Follow-up need to schedule u/s; return OB visit in 4 weeks (30 min). EndCited * Progress note Date Encounter Last Documented by 01/10/2024 * PHONE CALL Last documented on 01/13/2024; 6:11 AM, YI BECK-; [facility] Active Problems & Conditions - Family History of Disorders of Blood and Blood-forming Organs - mom is a carrier - History of Breast Disorders - PGM cancer - History of Depression - pt dx at 5 yo was on ritalin for ADHD at 8 y o x one year; no meds since then; dad, mom - History of Hematologic Disorders - dad - History of Renal Disease - dad kidney cancer, had kidney removed - History of Reported Physical Trauma - - Reported Family History of Congenital Heart Disease - mom hemophelia carrier Chief Complaint Phone Call - Chief Concern: Reason for call: Patient called with complaints of a UTI. She is experiencing burning when urinating and frequency. She denies yeast symptoms, back/pelvic pain, and fever. I confirmed no known allergies and called Macrobid rx into her pharmacy. She knows to call the office if her symptoms persist or worsen. pt phone # for return call: [phone] Date/Initials: 01/10/24 LV. History of Present Illness CLEVELAND SANTOS is a 18 year old female. Pharmacy name: [facility]. Current Medication - Vitamins Oral Tablet 0 days, 0 refills - Sertraline HCl 50 MG Oral Tablet One tablet daily, 16 days, 0 refills Past Medical/Surgical History Reported: LMP: 09/02/2023. Medical: No previous STD. Physical Trauma: Physical trauma. : No. of Pregnancies: 1. Diagnoses: Breast disorders PGM cancer. Depression pt dx at 5 yo was on ritalin for ADHD at 8 y o x one year; no meds since then; dad, mom. Hematologic disorder dad Social History Tobacco use: Former smoker stopped smoking years ago 08/2023. Alcohol: No consumption of alcohol and not using alcohol. Drug Use: Not using drugs, no drug use by a sexual partner, and has not used injectable drugs. Sexual: Sexually active with 1 partners in the last year and has sex with males only. Partner has not had a STD in the past year, sexual partner has not had other partners while in relationship with patient, and sexual partner has not had sex with prostitutes. Patient has not had sex under the influence of alcohol or drugs in the last year and patient does not report having sex when she didn't want to. Have you ever had sex (vaginal or penis in anus or rectum)? Does not have anal sex. Allergies - No Known Allergies Plan StartCited - Dysuria Macrobid 100 MG capsule One tablet twice a day, 7 days, 0 refills EndCited StartCited - Other PHY ORDER/COMMENT Agree with macrobid rx but ALL ob calls should be in the ob chart (please amend) and should be sent to a provider in house if possible. Dr. Villa has almost exculsively seen this pt. - I last saw in September!! EndCited * Progress note Date Encounter Last Documented by 12/23/2023 RETURN OB EXAM Last documented on 12/23/2023; 11:51 AM, KEYANNA VILLA MD; [facility] History of Present Illness CLEVELAND SANTOS is a 18 year old female. - Allergy list reviewed - Medication list reviewed Current Medication - Vitamins Oral Tablet 0 days, 0 refills - Sertraline HCl 50 MG Oral Tablet One tablet daily, 16 days, 0 refills Pt reports not taking sertraline.......ed Allergies - No Known Allergies Physical Findings - Vitals taken 12/23/2023 11:28 am BP-Sitting 110/62 mmHg Temp-Oral 98.6 F Weight 173 lbs OB Visit Return Visit Risk Factors Family [...] 0 DON: 06/08/2024 (by LMP) Gestational Age: 16 weeks Weight: 173 lb Baseline Weight: 174 lb Weight Change: -1 lb UA Dipstick Protein: Negative Glucose: Negative Nitrite: Negative Leukocyte: Negative Blood: Negative Ketones: Negative Movement (as per patient): positive Uterine Size/Fundal Height: 12 cm Heart Rate: 145 bpm Edema: None Jesse present today; Pt states she feels flutters and she is having a boy per [employer] u/s in [place]; Pt states no c/o; pt only took sertraline x 7 days and stated depression got worse so she quit the med, EPDS today-1; reviewed labs, offered [facility] Penta test today: pt wants; Plan StartCited - Other Follow-up to lab now; return OB visit in 4 weeks. (30 min) PHY ORDER/COMMENT needs MSAFP Penta test now. EndCited * Progress note Date Encounter Last Documented by 12/09/2023 * PHONE CALL Last documented on 12/09/2023; 11:33 AM, KEYANNA VILLA MD; [facility] OB Visit Return Visit Risk [...] 0 DON: 06/08/2024 (by LMP) Gestational Age: 14 weeks Pt called to tell us she stopped her Sertraline 50mg. She said she was having side effects from it. She said she was having excessive diarrhea which was in turn was causing her more depression. Pt stated she disposed of the medication properly. F/U that was scheduled for tomorrow 12/09 was canceled. Pt stated she no longer needed the appt. DG Plan StartCited - Other PHY ORDER/COMMENT still needs to be seen to document what happened, take quiz again, and consider options. EndCited * Progress note Date Encounter Last Documented by 11/20/2023 NEW OB EXAM ESTABLISHED PATIENT Last documented on 11/20/2023; 4:08 PM, KEYANNA VILLA MD; [facility] History of Present Illness CLEVELAND SANTOS is a 18 year old female. - Allergy list reviewed - Medication list reviewed Current Medication - Vitamins Oral Tablet 0 days, 0 refills Allergies - No Known Allergies Physical Findings - Vitals taken 11/20/2023 03:05 pm BP-Sitting 110/82 mmHg Temp-Temporal 98.7 F Height 67.5 in Weight 171 lbs 6.4 oz Body Mass Index 26.4 kg/m2 BMI Percentile 85.4 % Body Surface Area 1.9 m2 OB Visit Initial Visit Risk Factors (Score: 0) OB History Symptoms: MM 10/30/23 with Yi; cx neg. yeast+; u/s 11/15/23 AMH 10- 4/7 weeks DON= 06/08/24; pt did not take macrobid or terconazole Rx'd in early : 'insurance issues'. LMP = 09/02/23 which was normal. DON: 06/08/2024 (by LMP) Gestational Age: 11 weeks 2 days Pre- weight = 174 lb Menstrual History: Menarche at age 12. Regular cycles every 30 days. LMP is a for sure date, she has an madi Comments: New parents : 1 FT: 0 : 0 Ab: 0 Zohreh: 0 Medical History Positive Findings - Anemia/hematologic disorders - dad - Breast disorders - PGM cancer - Depression - pt dx at 5 yo was on ritalin for ADHD at 8 y o x one year; no meds since then; dad, mom - Renal disease - dad kidney cancer, had kidney removed - History of trauma Negative Findings Denies allergic rhinitis, asthma/pulmonary disorders, autoimmune disorders, history of abnormal pap smear, history of blood transfusion, psychiatric disorders, diabetes, heart disease, hypertension, infertility, liver disease, neurologic disorders, (Rh) sensitized, thyroid disorders, uterine abnormalities, varicosities/DVT and anesthetic complications (never been under). Substance Use/Habits - Tobacco: No. - Alcohol: No. - Illicit recreational Drugs: No. 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 Denies neural tube defects/spina bifida/anencephaly, trisomy 21/Down syndrome, congenital heart defects, cystic fibrosis, Robin-Sachs, thalassemia, Kaushal syndrome, [place]ucos's chorea, autism, mental retardation, muscular dystrophy, sickle cell, maternal metabolic disorders and recurrent loss or stillbirth. Exposure/Infection History Negative Findings Denies partner has history of HIV, patient or partner has history of genital herpes, exposure to tuberculosis, rash or viral illness since LMP, history of sexually transmitted disease and Possible Varicella Susceptibility (patient claims a prior history of chickenpox or varicella vaccination). Physical Exam Head: No abnormalities - exam with Yi 10/30/23. Eyes: No abnormalities. Ears, Nose, Throat: No abnormalities. Neck: No abnormalities. Thyroid: No abnormalities. Lymph Nodes: No abnormalities. Breast: No abnormalities. Heart, Rate and Rhythm: No abnormalities. Heart Sounds: No abnormalities. Lungs: No abnormalities. Back: No abnormalities. Abdomen: No abnormalities. Musculoskeletal: No abnormalities. Vulva: No abnormalities. Vagina: No abnormalities. Cervix: No abnormalities. Adnexa: No abnormalities. Obstetrical Findings Movement (as per patient): negative Uterine Size/Fundal Height: 11 w Heart Rate: 160 bpm Edema: None Cervix: 0cm/0%/-4 is already on a PNV: labs; EPDS= 10: pt denies SI/HI today: start sertraline 50 mg/day: R/B/A discussed with nausea being self limited, she should see some improvement in the first 3-5 days RTO 2 wks to rpt quiz and do dose adjustment, to ER if acute decompensation: pt expresses understanding. Education Topics OTC Protocols Educational material given to and discussed with patient. Alcohol Educational material discussed with patient. Anticipated Course of Care Educational material discussed with patient. HIV and Other Routine Tests Educational material discussed with patient. Indications for Ultrasound Educational material discussed with patient. Risk Factors Identified by History Educational material discussed with patient. Smoking Counseling Educational material discussed with patient. Plan StartCited - Oth mental disorders complicating , first trimester Sertraline HCl 50 MG tablet One tablet daily, 16 days, 0 refills EndCited StartCited - Other PHY ORDER/COMMENT needs TCK OB panel with CF carrier status Follow-up to lab now; return OB visit in 2 weeks with EPDS and dose adjustment (30 min); EndCited
--- OUTSIDE RECORDS SUMMARY | 2024-11-10 16:28 | XMS_ITS | Referral Summary ---
Author Organization [facility] [address] Address [address] [place] [address] Phone Care Team Providers Care Psychological Tests Sales Agent Name Role Phone No, Physician Primary Care Provider [phone] Allergies Active Allergy Reactions Criticality Noted Date Comments [place] Hives Medium 02/12/2024 Medications oxyCODONE-aceta minophen (PERCOCET) [...] 13 2004, 004,2004 Tdap 06/03/2015 Varicella 05/03/2009,06/15/2005 Social History Tobacco Use Types Packs/Day Years Used Date Smoking Tobacco: Never Smokeless Tobacco: Never Alcohol Use Standard Drinks/Week Comments No 0 (1 standard drink = 0.6 oz pur e alcohol) [facility] Utilities Answer Date Recorded In the past [...] How often do you attend chur or mandaeism services? Never 06/25/2024 Do you belong to any clubs o r organizations such as zoroastrian groups, unions, fraternal or athletic groups, or [...] staff should administer the PHQ-9) 0 06/25/2024 [facility] - Occupational Stress Questionnaire Answer Date [...] place to sleep or slept in a [place] (including now)? No 02/12/2024 Housing Stability Vital Sign Answer Chris e Recorded In the last 12 months, was t here a time when you were not able to pay the mortgage or rent on time? No 06/25/2024 In the past 12 months, how m any times have you moved where you were living? 0 06/25/2024 At any time in the past 12 m [facility], were you homeless or living in a [place] facility (including now)? No 06/25/2024 Personal Safety Answer Date Recorded Have you ever been in or are you currently in a harmful physical or emotional relationship or is someone making you feel afraid or unsafe? 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 Gender Identity Not on file Sexual Orientation [...] 06/23/2024 10:34 AM CDT Plan of Treatment Not on file Insurance IDPA [employer] CHOICE IDPA [facility] ANTH ACCESS CHOICE Member Subscriber Plan / Payer (Ef fective 2021-Present) Name:Oniel Santos Wd Relation to Subscriber:Child Name:ONIEL SANTOS Date of :2004 (Home) Address: [address] [place] [address] Payer ID:[id number] (NAIC) Type:BC ALLIANCE Address: [address] [place] [id number] IDPA Advance Directives For more information, please contact: [phone] * Full Code (Latest Code Status on File) Date Activated Date Inactivated Comments 06/23/2024 8:57 AM 06/26/2024 4:00 PM * Full Code Date Activated Date Inactivated Comments 06/05/2024 4:35 AM 06/07/2024 5:32 PM * Full Code Date Activated Date Inactivated Comments 06/04/2024 12:17 AM 06/05/2024 4:35 AM Full CPR in c ase of cardiopulmonary arrest Care Teams Psychological Tests Sales Agent Relationship Specialty Start Date End Date No, Physician PCP - General 12/13/23
--- OUTSIDE RECORDS SUMMARY | 2024-11-10 16:28 | XMS_ITS | Clinical Summary ---
Author Organization [facility] Address [address] [place] [address] Phone Care Team Providers Care Bait Digger Name Role Phone Unavailable Unavailable Unavailable Reason for Visit and Chief Complaint RETURN OB EXAM Problems Includes: Problems addressed during this encounter and other active Problems All Visits Onset Date Resolved Date Provider Condition S tatus History of Breast Disorders 11/20/2023 KEYANNA BOX MD Active Last Documented On 11/20/2023 4:08PM ; [facility] Note: PGM cancer History of Depression 11/20/2023 KEYANNA BOX MD Active Last Documented On 11/20/2023 4:08PM ; [facility] Note: pt dx at 5 yo was on ritalin for A DHD at 8 y o x one year; no meds since then; dad, mom History of Hematologic Disorders 11/20/2023 KEYANNA BOX MD Active Last Documented On 11/20/2023 4:08PM ; [facility] Note: dad History of Renal Disease 11/20/2023 KEYANNA BOX MD Active Last Documented On 11/20/2023 4:08PM ; [facility] Note: dad kidney cancer, had kidney breana crystal History of Reported Physical Trauma 11/20/2023 KEYANNA BOX MD Active Last Documented On 4 4:08PM ; [facility] Reported Family History of Congenital Heart Disease 10/30/[address] [facility] A ctive Last Documented On 10/30/2023 11:05AM ; [facility] Note: mom hemophelia carrier 09/02/2023 KEYANNA BOX MD Active Last Documented On 4 3:04PM ; [facility] Plan of Treatment Pending Tests Order Diagnosis Results Due Ordering P rovider Lab Penta screen 12/23/23 KEYANNA BELCHER MD Last Documented On 4 11:53AM ; [facility] Ultrasound (OB) - U/S COMPLETE OB U/S >/ = 14 WKS , SINGLE FETUS Matern care for oth or susp poor fetl grth, 2nd tri, unsp 01/20/24 KEYANNA BOX MD Last Documented On 4 3:29PM ; [facility] Lab Antibody Scr, RBC w/ reflex id 02/17 KEYANNA BOX MD Last Documented On 4 8:22AM ; [facility] Lab RPR (Monitoring) w/ reflex Titer KEYANNA BOX MD Last Documented On 4 8:22AM ; [facility] Lab UA, Complete, Reflex to Culture 01/29 10/23 KEYANNA BOX MD Last Documented On 4 8:22AM ; [facility] Lab 1 HR GLUCOSE TOLERANCE TEST 02/18/24 KEYANNA BOX MD Last Documented On 4 8:22AM ; [facility] Lab *CBC W/DIFF 02/18/24 KEYANNA Sparrow MD Last Documented On 4 8:22AM ; [facility] Lab CBC WITH DIFF 03/10/24 KEYANNA RENEE MD Last Documented On 4 9:44AM ; [facility] Lab URINALYSIS /REFLEX C&S 03/10/24 LACY BOX MD Last Documented On 4 9:44AM ; [facility] Lab ANTIBODY SCREEN 03/10/24 KEYANNA VEGA MD Last Documented On 4 9:44AM ; [facility] Lab GTT 1 HOUR GLUCOSE 03/10/24 KEYANNA BOX MD Last Documented On 4 9:44AM ; [facility] Lab RPR (RAPID PLASMA REAGIN) 03/10/24 KEYANNA BOX MD Last Documented On 4 9:44AM ; [facility] Ultrasound (OB) - ULTRASOUND FOLLOW -UP OB U/S Matern care for oth or susp poor fetl grth, 2nd tri, unsp 03/13/24 KEYANNA BOX MD Last Documented On 4 9:53AM ; [facility] Assessments Includes: Assessments from this encounter No Assessments Recorded Medical Equipment - Implanted Devices Includes: Current Devices No Medical Equipment Recorded Medications Includes: Medications discussed during this encounter and other current Medications Current Medications (continue as prescribed) Vitamins Oral Tablet 11/20/2023 Provider: Diagnosis: Last Documented On 4 3:22PM By FERNANDA CROSS ; [facility] Sertraline HCl 50 MG Oral Tablet 11/20/2023 Provider: KEYANNA BOX MD Diagnosis: Oth mental disor ders complicating , first trimester One tablet daily Last Documented On 11/20/2023 4:06PM By KEYANNA BOX MD ; [facility] Past Medications on file Macrobid 100 MG Oral Capsule 01/10/2024 - 01/17/2024 P palakder: [facility]- Diagnosis: Dysuria One tablet twice a day Last Documented On 01/10/2024 2:56PM By Lindsey Chan Ez ; [facility] Medications Administered Includes: Administered Medications from this encounter No Administered Medications Recorded Vital Signs Includes: Vital Signs from this encounter Vital Name 01/20/2024 01:48P Blood Pressure Sitting (mmHg) 100/60 Temp-Oral (F) 98.7 Weight (lb) 178 Last Documented: On 01/20/2024 1:48PM ; [facility] Results Includes: Results discussed during this encounter No Results Recorded For Specified Dates History of Present Illness Includes: History of Present Illness from this encounter ROBERTA SANTOS is a 18 year old female. - Allergy list reviewed - Medication list reviewed Social History No Social History Recorded - Smoking Status Unknown Procedures and Surgical History Includes: Procedures from this encounter Procedures Code Diagnosis Performing Provider Service L ocation Service Date CLINIC VISIT T1015 Encntr for suprv sn of normal first preg, second trimester KEYANNA BOX MD [facility] 01/20/2024 Last Documented On 4 2:32PM ; [facility] Medical History Includes: Medical History addressed during [...] Exam Includes: Physical Exam from this encounter Allergies Includes: Active Allergies No Known Allergies Encounters Encounter Provider Location Date Check-In Time Check- Out Time Diagnosis RETURN OB EXAM KEYANNA BOX MD [facility] 4 1:29PM 2:14PM Insurance Includes: Active Insurance Policies Plan Name Member ID Group # Subscriber Relationship Effect ilzy Dates 1 - MEDICAID [facility] [id number] [place] Self Clinical Notes Includes: Clinical Notes from this encounter * Progress note Date Encounter Last Documented by 01/20/2024 RETURN OB EXAM Last documented on 01/20/2024; 2:09 PM, KEYANNA BOX MD; [facility] History of Present Illness [place] [...] w Heart Rate: 145 bpm Edema: None Estiven, pts dad, present today. Pt states she [...]
--- OUTSIDE RECORDS SUMMARY | 2024-11-10 16:28 | XMS_ITS | Clinical Summary ---
Author Organization [facility] Address [address] [place] [address] Phone Care Team Providers Care Cold Reduction Roller Name Role Phone Unavailable Unavailable Unavailable Reason for Visit and Chief Complaint RETURN OB EXAM Problems Includes: Problems addressed during this encounter and other active Problems All Visits Onset Date Resolved Date Provider Condition S tatus History of Breast Disorders 11/20/2023 KEYANNA BOX MD Active Last Documented On 11/20/2023 4:08PM ; [facility] Note: PGM cancer History of Depression 11/20/2023 KEYANNA BOX MD Active Last Documented On 11/20/2023 4:08PM ; [facility] Note: pt dx at 5 yo was on ritalin for A DHD at 8 y o x one year; no meds since then; dad, mom History of Hematologic Disorders 11/20/2023 KEYANNA BOX MD Active Last Documented On 11/20/2023 4:08PM ; [facility] Note: dad History of Renal Disease 11/20/2023 KEYANNA BOX MD Active Last Documented On 11/20/2023 4:08PM ; [facility] Note: dad kidney cancer, had kidney breana crystal History of Reported Physical Trauma 11/20/2023 KEYANNA BOX MD Active Last Documented On 4 4:08PM ; [facility] Reported Family History of Congenital Heart Disease 10/30/2023 [facility] A ctive Last Documented On 10/30/2023 11:05AM ; [facility] Note: mom hemophelia carrier 09/02/2023 KEYANNA BOX MD Active Last Documented On 4 3:04PM ; [facility] Plan of Treatment Pending Tests Order Diagnosis Results Due Ordering P rovider Lab Penta screen 12/23/23 KEYANNA BELCHER MD Last Documented On 4 11:53AM ; [facility] Ultrasound (OB) - U/S COMPLETE OB U/S >/ = 14 WKS , SINGLE FETUS Matern care for oth or susp poor fetl grth, 2nd tri, unsp 01/20/24 KEYANNA BOX MD Last Documented On 4 3:29PM ; [facility] Lab Antibody Scr, RBC w/ reflex id 02/17 KEYANNA BOX MD Last Documented On 4 8:22AM ; [facility] Lab RPR (Monitoring) w/ reflex Titer KEYANNA BOX MD Last Documented On 4 8:22AM ; [facility] Lab UA, Complete, Reflex to Culture 01/29 10/23 KEYANNA BOX MD Last Documented On 4 8:22AM ; [facility] Lab 1 HR GLUCOSE TOLERANCE TEST 02/18/24 KEYANNA BOX MD Last Documented On 4 8:22AM ; [facility] Lab *CBC W/DIFF 02/18/24 KEYANNA Sparrow MD Last Documented On 4 8:22AM ; [facility] Lab CBC WITH DIFF 03/10/24 KEYANNA RENEE MD Last Documented On 4 9:44AM ; [facility] Lab URINALYSIS /REFLEX C&S 03/10/24 LACY BOX MD Last Documented On 4 9:44AM ; [facility] Lab ANTIBODY SCREEN 03/10/24 KEYANNA VEGA MD Last Documented On 4 9:44AM ; [facility] Lab GTT 1 HOUR GLUCOSE 03/10/24 KEYANNA BOX MD Last Documented On 4 9:44AM ; [facility] Lab RPR (RAPID PLASMA REAGIN) 03/10/24 KEYANNA BOX MD Last Documented On 4 9:44AM ; [facility] Ultrasound (OB) - ULTRASOUND FOLLOW -UP OB U/S Matern care for oth or susp poor fetl grth, 2nd tri, unsp 03/13/24 KEYANNA BOX MD Last Documented On 4 9:53AM ; [facility] Assessments Includes: Assessments from this encounter No Assessments Recorded Medical Equipment - Implanted Devices Includes: Current Devices No Medical Equipment Recorded Medications Includes: Medications discussed during this encounter and other current Medications Current Medications (continue as prescribed) Vitamins Oral Tablet 11/20/2023 Provider: Diagnosis: Last Documented On 4 3:22PM By FERNANDA CROSS ; [facility] Sertraline HCl 50 MG Oral Tablet 11/20/2023 Provider: KEYANNA BOX MD Diagnosis: Oth mental disor ders complicating , first trimester One tablet daily Last Documented On 11/20/2023 4:06PM By KEYANNA BOX MD ; [facility] Past Medications on file Macrobid 100 MG Oral Capsule 01/10/2024 - 01/17/2024 P palakder: [facility]- Diagnosis: Dysuria One tablet twice a day Last Documented On 01/10/2024 2:56PM By Lindsey Chan Ez ; [facility] Medications Administered Includes: Administered Medications from this encounter No Administered Medications Recorded Vital Signs Includes: Vital Signs from this encounter Vital Name 03/03/2024 09:16A Blood Pressure Sitting R 118/68 BP Cuff Size Regular Temp-Temporal 98.7 Weight (lb) 190 Last Documented: On 03/03/2024 9:16AM ; [facility] Results Includes: Results discussed during this encounter [...] first preg, second trimester KEYANNA BOX MD [facility] 03/03/2024 Last Documented On 4 6:24PM ; [facility] Medical History Includes: Medical History addressed during [...] Diagnosis RETURN OB EXAM KEYANNA BOX MD [facility] 4 8:53AM 9:54AM Insurance Includes: Active Insurance Policies Plan Name Member ID Group # Subscriber Relationship Effect lizy Dates 1 - MEDICAID [facility] [id number] [place] Self Clinical Notes Includes: Clinical Notes from this encounter * Progress note Date Encounter Last Documented by 03/03/2024 RETURN OB EXAM Last documented on 03/03/2024; 9:44 AM, KEYANNA BOX MD; [facility] History of Present Illness [place] [...]
--- OUTSIDE RECORDS SUMMARY | 2024-11-10 16:28 | XMS_ITS | Clinical Summary ---
Author Organization [facility] Address [address] [place] [address] Phone Care Team Providers Care Resident Associate Name Role Phone Unavailable Unavailable Unavailable Reason for Visit and Chief Complaint RETURN OB EXAM Problems Includes: Problems addressed during this encounter and other active Problems All Visits Onset Date Resolved Date Provider Condition S tatus History of Breast Disorders 11/20/2023 KEYANNA BOX MD Active Last Documented On 11/20/2023 4:08PM ; [facility] Note: PGM cancer History of Depression 11/20/2023 KEYANNA BOX MD Active Last Documented On 11/20/2023 4:08PM ; [facility] Note: pt dx at 5 yo was on ritalin for A DHD at 8 y o x one year; no meds since then; dad, mom History of Hematologic Disorders 11/20/2023 KEYANNA BOX MD Active Last Documented On 11/20/2023 4:08PM ; [facility] Note: dad History of Renal Disease 11/20/2023 KEYANNA BOX MD Active Last Documented On 11/20/2023 4:08PM ; [facility] Note: dad kidney cancer, had kidney breana crystal History of Reported Physical Trauma 11/20/2023 KEYANNA BOX MD Active Last Documented On 4 4:08PM ; [facility] Reported Family History of Congenital Heart Disease 10/30/2023 [facility] A ctive Last Documented On 10/30/2023 11:05AM ; [facility] Note: mom hemophelia carrier 09/02/2023 KEYANNA BOX MD Active Last Documented On 4 3:04PM ; [facility] Plan of Treatment Pending Tests Order Diagnosis Results Due Ordering P rovider Lab Penta screen 12/23/23 KEYANNA BELCHER MD Last Documented On 4 11:53AM ; [facility] Ultrasound (OB) - U/S COMPLETE OB U/S >/ = 14 WKS , SINGLE FETUS Matern care for oth or susp poor fetl grth, 2nd tri, unsp 01/20/24 KEYANNA BOX MD Last Documented On 4 3:29PM ; [facility] Lab Antibody Scr, RBC w/ reflex id 02/17 KEYANNA BOX MD Last Documented On 4 8:22AM ; [facility] Lab RPR (Monitoring) w/ reflex Titer KEYANNA BOX MD Last Documented On 4 8:22AM ; [facility] Lab UA, Complete, Reflex to Culture 01/29 10/23 KEYANNA BOX MD Last Documented On 4 8:22AM ; [facility] Lab 1 HR GLUCOSE TOLERANCE TEST 02/18/24 KEYANNA BOX MD Last Documented On 4 8:22AM ; [facility] Lab *CBC W/DIFF 02/18/24 KEYANNA Sparrow MD Last Documented On 4 8:22AM ; [facility] Lab CBC WITH DIFF 03/10/24 KEYANNA RENEE MD Last Documented On 4 9:44AM ; [facility] Lab URINALYSIS /REFLEX C&S 03/10/24 LACY BOX MD Last Documented On 4 9:44AM ; [facility] Lab ANTIBODY SCREEN 03/10/24 KEYANNA VEGA MD Last Documented On 4 9:44AM ; [facility] Lab GTT 1 HOUR GLUCOSE 03/10/24 KEYANNA BOX MD Last Documented On 4 9:44AM ; [facility] Lab RPR (RAPID PLASMA REAGIN) 03/10/24 KEYANNA BOX MD Last Documented On 4 9:44AM ; [facility] Ultrasound (OB) - ULTRASOUND FOLLOW -UP OB U/S Matern care for oth or susp poor fetl grth, 2nd tri, unsp 03/13/24 KEYANNA BOX MD Last Documented On 4 9:53AM ; [facility] Assessments Includes: Assessments from this encounter No Assessments Recorded Medical Equipment - Implanted Devices Includes: Current Devices No Medical Equipment Recorded Medications Includes: Medications discussed during this encounter and other current Medications Current Medications (continue as prescribed) Vitamins Oral Tablet 11/20/2023 Provider: Diagnosis: Last Documented On 4 3:22PM By FERNANDA CROSS ; [facility] Sertraline HCl 50 MG Oral Tablet 11/20/2023 Provider: KEYANNA BOX MD Diagnosis: Oth mental disor ders complicating , first trimester One tablet daily Last Documented On 11/20/2023 4:06PM By KEYANNA BOX MD ; [facility] Past Medications on file Macrobid 100 MG Oral Capsule 01/10/2024 - 01/17/2024 P palakder: [facility]- Diagnosis: Dysuria One tablet twice a day Last Documented On 01/10/2024 2:56PM By Lindsey Chan Ez ; [facility] Medications Administered Includes: Administered Medications from this encounter No Administered Medications Recorded Vital Signs Includes: Vital Signs from this encounter Vital Name 02/18/2024 11:21A Blood Pressure Sitting (mmHg) 116/64 Temp-Oral (F) 98.3 Weight (lb) 185 Last Documented: On 02/18/2024 11:42A M ; [facility] Results Includes: Results discussed during this encounter [...] first preg, second trimester KEYANNA BOX MD [facility] 02/18/2024 Last Documented On 4 6:24PM ; [facility] Medical History Includes: Medical History addressed during [...] Diagnosis RETURN OB EXAM KEYANNA BOX MD [facility] 11:04AM 12:04PM Insurance Includes: Active Insurance Policies Plan Name Member ID Group # Subscriber Relationship Effect lizy Dates 1 - MEDICAID [facility] [id number] [place] Self Clinical Notes Includes: Clinical Notes from this encounter * Progress note Date Encounter Last Documented by 02/18/2024 RETURN OB EXAM Last documented on 02/18/2024; 11:58 AM, KEYANNA BOX MD; [facility] History of Present Illness [...] finish anatomy screen; (last u/s 02/04/24 at [facility] EndCited StartCited - Other PHY ORDER/COMMENT needs 26 wk labs in 2 wks at next visit B neg so does need antibody screen, too. Follow-up needs f/u u/s to finish anatomy screen about a month after last u/s; return OB visit in 2 wks with 26 wk labs (30 min). EndCited
--- OUTSIDE RECORDS SUMMARY | 2024-11-10 16:28 | XMS_ITS | Clinical Summary ---
Author Organization [facility] Address [address] [place] [address] Phone Care Team Providers Care Ui Engineer Name Role Phone Unavailable Unavailable Unavailable Reason for Visit and Chief Complaint * PHONE CALL Problems Includes: Problems addressed during this encounter and other active Problems Current Visit Onset Date Resolved Date Provider Conditio n Status History of Breast Disorders 11/20/2023 KEYANNA VILLA MD Active Last Documented On 11/20/2023 4:08PM ; [facility] Note: PGM cancer History of Depression 11/20/2023 KEYANNA VILLA MD Active Last Documented On 11/20/2023 4:08PM ; [facility] Note: pt dx at 5 yo was on ritalin for A DHD at 8 y o x one year; no meds since then; dad, mom History of Hematologic Disorders 11/20/2023 KEYANNA VILLA MD Active Last Documented On 11/20/2023 4:08PM ; [facility] Note: dad History of Reported Physical Trauma 11/20/2023 KEYANNA VILLA MD Active Last Documented On 4:08PM ; [facility] Past Visits Onset Date Resolved Date Provider Condition Status History of Renal Disease 11/20/2023 KEYANNA VILLA MD Active Last Documented On 11/20/2023 4:08PM ; [facility] Note: dad kidney cancer, had kidney breana crystal Reported Family History of Congenital Heart Disease 10/30/2023 [facility]OR [facility] Active Last Documented On 10/30/2023 11:05AM ; [facility] Note: mom hemophelia carrier 09/02/2023 KEYANNA VILLA MD Active Last Documented On 3:04PM ; [facility] Plan of Treatment No Plan of Treatment Recorded Assessments Includes: Assessments from this encounter No Assessments Recorded Medical Equipment - Implanted Devices Includes: Current Devices No Medical Equipment Recorded Medications Includes: Medications discussed during this encounter and other current Medications New / Renewed during this visit SALVADOR CASTILLO on 01/10/2024 Macrobid 100 MG Oral Capsule Provider: SALVADOR Ellis 7 day supply: 14 capsule, 0 refills Diagnosis: Dysuria One tablet twice a day Pharmacy: [facility] ([place] [address] [facility], [id number] - Last Documented On 01/10/2024 2:56PM By Lindsey Chan Ez ; [facility] Current Medications (continue as prescribed) Vitamins Oral Tablet 11/20/2023 Provider: Diagnosis: Last Documented On 4 3:22PM By FERNANDA CROSS ; [facility] Sertraline HCl 50 MG Oral Tablet 11/20/2023 Provider: KEYANNA VILLA MD Diagnosis: Oth mental disor ders complicating , first trimester One tablet daily Last Documented On 11/20/2023 4:06PM By KEYANNA VILLA MD ; [facility] Medications Administered Includes: Administered Medications from this encounter No Administered Medications Recorded Results Includes: Results discussed during this encounter No Results Recorded For Specified Dates History of Present Illness Includes: History of Present Illness from this encounter ROBERTA SANTOS is a 18 year old female. Pharmacy name: [facility]. Social History Description Last Updated Not using alcohol 10/30/2023 Last Documented On 4 2:47PM ; [facility] Sexually active 10/30/2023 Last Documented On 4 2:47PM ; [facility] Sexually active with 1 partners in the l ast year 10/30/2023 Last Documented On 4 2:47PM ; [facility] Does not have anal sex 10/30/2023 Last Documented On 4 2:47PM ; [facility] Former smoker 10/30/2023 Last Documented On 4 2:47PM ; [facility] Has not used injectable drugs 10/30/2023 Last Documented On 4 2:47PM ; [facility] Has sex with males only 10/30/2023 Last Documented On 4 2:47PM ; [facility] Have you ever had sex (vaginal or penis in anus or rectum)? 10/30/2023 Last Documented On 4 2:47PM ; [facility] No consumption of alcohol 10/30/2023 Last Documented On 4 2:47PM ; [facility] No drug use by a sexual partner 10/30/19 Last Documented On 4 2:47PM ; [facility] Not using drugs 10/30/2023 Last Documented On 4 2:47PM ; [facility] Partner has not had a STD in the past ye ar 10/30/2023 Last Documented On 4 2:47PM ; [facility] Patient does not report having sex when she didn't want to 10/30/2023 Last Documented On 4 2:47PM ; [facility] Patient has not had sex unde r the influence of alcohol or drugs in the last year 10/30/2023 Last Documented On 4 2:47PM ; [facility] Sexual partner has not had o ther partners while in relationship with patient 10/30/2023 Last Documented On 4 2:47PM ; [facility] Sexual partner has not had sex with pros titutes 10/30/2023 Last Documented On 4 2:47PM ; [facility] Stopped smoking years ago 08/2023 Last Documented On 4 2:47PM ; [facility] Smoking Status Unknown Medical History Includes: Medical History addressed during this encounter Description Last Updated History of breast disorders PGM cancer 0 11/20/2023 Last Documented On 4 2:47PM ; [facility] History of depression pt dx at 5 yo was on ritalin for ADHD at 8 y o x one year; no meds since then; dad, mom 11/20/2023 Last Documented On 4 2:47PM ; [facility] History of hematologic disorder dad /09/2023 Last Documented On 4 2:47PM ; [facility] Physical trauma 11/20/2023 Last Documented On 4 2:47PM ; [facility] LMP: 09/02/2023 10/30/2023 Last Documented On 4 2:47PM ; [facility] No previous STD 10/30/2023 Last Documented On 4 2:47PM ; [facility] No. of Pregnancies: 1 10/30/2023 Last Documented On 4 2:47PM ; [facility] Family History Includes: Family History addressed during [...] Time Check-Out Time Diagnosis * PHONE CALL SALVADOR CASTILLO 01/10/2024 2:47PM 11:59PM Insurance Includes: Active Insurance Policies Plan Name Member ID Group # Subscriber Relationship Effect lizy Dates 1 - MEDICAID [facility] [facility] [id number] [place] SANT[place] Self Clinical Notes Includes: Clinical Notes from this encounter * Progress note Date Encounter Last Documented by 01/10/2024 * PHONE CALL Last documented on 01/13/2024; 6:11 AM, SALVADOR CASTILLO; [facility] Active Problems & Conditions - Family History [...] worsen. pt phone # for return call: [phone] Date/Initials: 01/10/24 [place]. History of Present Illness [...]
--- OUTSIDE RECORDS SUMMARY | 2024-11-10 16:30 | XMS_ITS | Clinical Summary ---
Author Organization [facility] Address [address] [place] [address] Phone Care Team Providers Care Supervisor Paste Plant Name Role Phone Unavailable Unavailable Unavailable Reason for Visit and Chief Complaint RETURN OB EXAM Problems Includes: Problems addressed during this encounter and other active Problems All Visits Onset Date Resolved Date Provider Condition S tatus History of Breast Disorders 11/20/2023 KEYANNA BOX MD Active Last Documented On 11/20/2023 4:08PM ; [facility] Note: PGM cancer History of Depression 11/20/2023 KEYANNA BOX MD Active Last Documented On 11/20/2023 4:08PM ; [facility] Note: pt dx at 5 yo was on ritalin for A DHD at 8 y o x one year; no meds since then; dad, mom History of Hematologic Disorders 11/20/2023 KEYANNA BOX MD Active Last Documented On 11/20/2023 4:08PM ; [facility] Note: dad History of Renal Disease 11/20/2023 KEYANNA BOX MD Active Last Documented On 11/20/2023 4:08PM ; [facility] Note: dad kidney cancer, had kidney breana crystal History of Reported Physical Trauma 11/20/2023 KEYANNA BOX MD Active Last Documented On 4 4:08PM ; [facility] Reported Family History of Congenital Heart Disease 10/30/2023 SAL[facility]ADOR [facility] Last Documented On 10/30/2023 11:05AM ; [facility] Note: mom hemophelia carrier 09/02/2023 KEYANNA BOX MD Active Last Documented On 4 3:04PM ; [facility] Plan of Treatment Pending Tests Order Diagnosis Results Due Ordering P rovider Lab Penta screen 12/23/23 KEYANNA BELCHER MD Last Documented On 4 11:53AM ; [facility] Ultrasound (OB) - U/S COMPLETE OB U/S >/ = 14 WKS , SINGLE FETUS Matern care for oth or susp poor fetl grth, 2nd tri, unsp 01/20/24 KEYANNA BOX MD Last Documented On 4 3:29PM ; [facility] Lab Antibody Scr, RBC w/ reflex id 02/17 KEYANNA BOX MD Last Documented On 4 8:22AM ; [facility] Lab RPR (Monitoring) w/ reflex Titer KEYANNA BOX MD Last Documented On 4 8:22AM ; [facility] Lab UA, Complete, Reflex to Culture 01/29 10/23 KEYANNA BOX MD Last Documented On 4 8:22AM ; [facility] Lab 1 HR GLUCOSE TOLERANCE TEST 02/18/24 KEYANNA BOX MD Last Documented On 4 8:22AM ; [facility] Lab *CBC W/DIFF 02/18/24 KEYANNA Sparrow MD Last Documented On 4 8:22AM ; [facility] Lab CBC WITH DIFF 03/10/24 KEYANNA RENEE MD Last Documented On 4 9:44AM ; [facility] Lab URINALYSIS /REFLEX C&S 03/10/24 LACY BOX MD Last Documented On 4 9:44AM ; [facility] Lab ANTIBODY SCREEN 03/10/24 KEYANNA VEGA MD Last Documented On 4 9:44AM ; [facility] Lab GTT 1 HOUR GLUCOSE 03/10/24 KEYANNA BOX MD Last Documented On 4 9:44AM ; [facility] Lab RPR (RAPID PLASMA REAGIN) 03/10/24 KEYANNA BOX MD Last Documented On 4 9:44AM ; [facility] Ultrasound (OB) - ULTRASOUND FOLLOW -UP OB U/S Matern care for oth or susp poor fetl grth, 2nd tri, unsp 03/13/24 KEYANNA BOX MD Last Documented On 4 9:53AM ; [facility] Assessments Includes: Assessments from this encounter No Assessments Recorded Medical Equipment - Implanted Devices Includes: Current Devices No Medical Equipment Recorded Medications Includes: Medications discussed during this encounter and other current Medications Current Medications (continue as prescribed) Vitamins Oral Tablet 11/20/2023 Provider: Diagnosis: Last Documented On 4 3:22PM By FERNANDA CROSS ; [facility] Sertraline HCl 50 MG Oral Tablet 11/20/2023 Provider: KEYANNA BOX MD Diagnosis: Oth mental disor ders complicating , first trimester One tablet daily Last Documented On 11/20/2023 4:06PM By KEYANNA BOX MD ; [facility] Past Medications on file Macrobid 100 MG Oral Capsule 01/10/2024 - 01/17/2024 P palakder: [facility]- Diagnosis: Dysuria One tablet twice a day Last Documented On 01/10/2024 2:56PM By Lindsey Chan Ez ; [facility] Medications Administered Includes: Administered Medications from this encounter No Administered Medications Recorded Vital Signs Includes: Vital Signs from this encounter Vital Name 01/20/2024 01:48P Blood Pressure Sitting (mmHg) 100/60 Temp-Oral (F) 98.7 Weight (lb) 178 Last Documented: On 01/20/2024 1:48PM ; [facility] Results Includes: Results discussed during this [...] first preg, second trimester KEYANNA BOX MD [facility] 01/20/2024 Last Documented On 4 2:32PM ; [facility] Medical History Includes: Medical History addressed [...] Diagnosis RETURN OB EXAM KEYANNA BOX MD [facility] 4 1:29PM 2:14PM Insurance Includes: Active Insurance Policies Plan Name Member ID Group # Subscriber Relationship Effect lizy Dates 1 - MEDICAID [facility] [id number] [place] SANT[place] Self Clinical Notes Includes: Clinical Notes from this encounter * Progress note Date Encounter Last Documented by 01/20/2024 RETURN OB EXAM Last documented on 01/20/2024; 2:09 PM, KEYANNA BOX MD; [facility] History of Present Illness [...]
--- OUTSIDE RECORDS SUMMARY | 2024-11-10 16:30 | XMS_ITS | Clinical Summary ---
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 Role Phone Unavailable Unavailable Unavailable Reason for Visit and Chief Complaint * PHONE CALL Problems Includes: Problems addressed during this encounter and other active Problems All Visits Onset Date Resolved Date Provider Condition S tatus History of Breast Disorders 11/20/2023 KEYANNA BOX MD Active Last Documented On 11/20/2023 4:08PM ; [facility] Note: PGM cancer History of Depression 11/20/2023 KEYANNA BOX MD Active Last Documented On 11/20/2023 4:08PM ; [facility] Note: pt dx at 5 yo was on ritalin for A DHD at 8 y o x one year; no meds since then; dad, mom History of Hematologic Disorders 11/20/2023 KEYANNA BOX MD Active Last Documented On 11/20/2023 4:08PM ; [facility] Note: dad History of Renal Disease 11/20/2023 KEYANNA BOX MD Active Last Documented On 11/20/2023 4:08PM ; [facility] Note: dad kidney cancer, had kidney breana crystal History of Reported Physical Trauma 11/20/2023 KEYANNA BOX MD Active Last Documented On 4 4:08PM ; [facility] Reported Family History of Congenital Heart Disease 10/30/2023 SAL[facility]OR [facility] Last Documented On 10/30/2023 11:05AM ; [facility] Note: mom hemophelia carrier 09/02/2023 KEYANNA BOX MD Active Last Documented On 4 3:04PM ; [facility] Plan of Treatment Pending Tests Order Diagnosis Results Due Ordering P rovider Lab Penta screen 12/23/23 KEYANNA BELCHER MD Last Documented On 4 11:53AM ; [facility] Ultrasound (OB) - U/S COMPLETE OB U/S >/ = 14 WKS , SINGLE FETUS Matern care for oth or susp poor fetl grth, 2nd tri, unsp 01/20/24 KEYANNA BOX MD Last Documented On 4 3:29PM ; [facility] Lab Antibody Scr, RBC w/ reflex id 02/17 KEYANNA BOX MD Last Documented On 4 8:22AM ; [facility] Lab RPR (Monitoring) w/ reflex Titer KEYANNA BOX MD Last Documented On 4 8:22AM ; [facility] Lab UA, Complete, Reflex to Culture 01/29 10/23 KEYANNA BOX MD Last Documented On 4 8:22AM ; [facility] Lab 1 HR GLUCOSE TOLERANCE TEST 02/18/24 KEYANNA BOX MD Last Documented On 4 8:22AM ; [facility] Lab *CBC W/DIFF 02/18/24 KEYANNA Sparrow MD Last Documented On 4 8:22AM ; [facility] Lab CBC WITH DIFF 03/10/24 KEYANNA RENEE MD Last Documented On 4 9:44AM ; [facility] Lab URINALYSIS /REFLEX C&S 03/10/24 LACY BOX MD Last Documented On 4 9:44AM ; [facility] Lab ANTIBODY SCREEN 03/10/24 KEYANNA VEGA MD Last Documented On 4 9:44AM ; [facility] Lab GTT 1 HOUR GLUCOSE 03/10/24 KEYANNA BOX MD Last Documented On 4 9:44AM ; [facility] Lab RPR (RAPID PLASMA REAGIN) 03/10/24 KEYANNA BOX MD Last Documented On 4 9:44AM ; [facility] Ultrasound (OB) - ULTRASOUND FOLLOW -UP OB U/S Matern care for oth or susp poor fetl grth, 2nd tri, unsp 03/13/24 KEYANNA BOX MD Last Documented On 4 9:53AM ; [facility] Assessments Includes: Assessments from this encounter No Assessments Recorded Medical Equipment - Implanted Devices Includes: Current Devices No Medical Equipment Recorded Medications Includes: Medications discussed during this encounter and other current Medications Current Medications (continue as prescribed) Vitamins Oral Tablet 11/20/2023 Provider: Diagnosis: Last Documented On 4 3:22PM By FERNANDA CROSS ; [facility] Sertraline HCl 50 MG Oral Tablet 11/20/2023 Provider: KEYANNA BOX MD Diagnosis: Oth mental disor ders complicating , first trimester One tablet daily Last Documented On 11/20/2023 4:06PM By KEYANNA BOX MD ; [facility] Medications Administered Includes: Administered [...] lizy Dates 1 - MEDICAID [facility] [id number] [place] Self Clinical Notes Includes: Clinical Notes from this encounter * Progress note Date Encounter Last Documented by 02/12/2024 * PHONE CALL Last documented on 02/12/2024; 3:33 PM, KEYANNA BOX MD; [facility] OB Visit Return Visit [...] 119. 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 She [...]
--- OUTSIDE RECORDS SUMMARY | 2024-11-10 16:30 | XMS_ITS ---
Author Organization [facility] Address [address] [place] [phone] Phone Care Team Providers Care Sleeping Room Cleaner Name Role Phone Unavailable Unavailable Unavailable Problems Includes: Active, inactive, and resolved Problems All Visits Onset Date Resolved Date Provider Condition S tatus History of Breast Disorders 11/20/2023 KEYANNA VILLA MD Active Last Documented On 11/20/2023 4:08PM ; [facility] Note: PGM cancer History of Depression 11/20/2023 KEYANNA VILLA MD Active Last Documented On 11/20/2023 4:08PM ; [facility] Note: pt dx at 5 yo was on ritalin for A DHD at 8 y o x one year; no meds since then; dad, mom History of Hematologic Disorders 11/20/2023 KEYANNA VILLA MD Active Last Documented On 11/20/2023 4:08PM ; [facility] Note: dad History of Renal Disease 11/20/2023 KEYANNA VILLA MD Active Last Documented On 11/20/2023 4:08PM ; [facility] Note: dad kidney cancer, had kidney breana crystal History of Reported Physical Trauma 11/20/2023 KEYANNA VILLA MD Active Last Documented On 4 4:08PM ; [facility] Reported Family History of Congenital Heart Disease 10/30/2023 YI BARBOUR NP-BC A ctive Last Documented On 10/30/2023 11:05AM ; [facility] Note: mom hemophelia carrier 09/02/2023 KEYANNA VILLA MD Active Last Documented On 4 3:04PM ; [facility] Plan of Treatment Findings Encounter Date Ordered Clinical summary pro vided to patient MISSED MENSES - NEW PT with YI BARBOUR WHNP-BC 10/30/2023 Last Documented On 4 11:14AM ; [facility] Pending Tests Order Diagnosis Results Due Ordering P rovider Lab Penta screen 12/23/23 KEYANNA BELCHER MD Last Documented On 4 11:53AM ; [facility] Ultrasound (OB) - U/S COMPLETE OB U/S >/ = 14 WKS , SINGLE FETUS Matern care for oth or susp poor fetl grth, 2nd tri, unsp 01/20/24 KEYANNA VILLA MD Last Documented On 4 3:29PM ; [facility] Lab Antibody Scr, RBC w/ reflex id 02/17 KEYANNA VILLA MD Last Documented On 4 8:22AM ; [facility] Lab RPR (Monitoring) w/ reflex Titer KEYANNA VILLA MD Last Documented On 4 8:22AM ; [facility] Lab UA, Complete, Reflex to Culture 01/29 10/23 KEYANNA VILLA MD Last Documented On 4 8:22AM ; [facility] Lab 1 HR GLUCOSE TOLERANCE TEST 02/18/24 KEYANNA VILLA MD Last Documented On 4 8:22AM ; [facility] Lab *CBC W/DIFF 02/18/24 KEYANNA Sparrow MD Last Documented On 4 8:22AM ; [facility] Lab CBC WITH DIFF 03/10/24 KEYANNA RENEE MD Last Documented On 4 9:44AM ; [facility] Lab URINALYSIS /REFLEX C&S 03/10/24 LACY VILLA MD Last Documented On 4 9:44AM ; [facility] Lab ANTIBODY SCREEN 03/10/24 KEYANNA VEGA MD Last Documented On 4 9:44AM ; [facility] Lab GTT 1 HOUR GLUCOSE 03/10/24 KEYANNA VILLA MD Last Documented On 4 9:44AM ; [facility] Lab RPR (RAPID PLASMA REAGIN) 03/10/24 KEYANNA VILLA MD Last Documented On 4 9:44AM ; [facility] Ultrasound (OB) - ULTRASOUND FOLLOW -UP OB U/S Matern care for oth or susp poor fetl grth, 2nd tri, unsp 03/13/24 KEYANNA VILLA MD Last Documented On 4 9:53AM ; [facility] Education and Decision Aids were provided during visit for: New OB form given to patient SAB precautions reviewed and pnv samples given. Advised H1N1 and seasonal flu vaccine. Covid vaccine per ACOG and CDC protocol Last Documented On 4 10:32AM ; [facility] Assessments Includes: Assessments for all patient encounters Findings Encounter Date Amenorrhea 8 2/7 weeks by LM P - EDC 06-11-24 MISSED MENSES - NEW PT with YI BECK-BC 10/30/2023 Last Documented On 4 11:14AM ; [facility] Instructions Includes: Instructions for all patient encounters Education and Decision Aids were provided during visit for: New OB form given to patient SAB precautions reviewed and pnv samples given. Advised H1N1 and seasonal flu vaccine. Covid vaccine per ACOG and CDC protocol Last Documented On 4 10:32AM ; [facility] Medical Equipment - Implanted Devices Includes: Current and historical Devices No Medical Equipment Recorded Medications Includes: Current and historical Medications Current Medications (continue as prescribed) Vitamins Oral Tablet 11/20/2023 Provider: Diagnosis: Last Documented On 4 3:22PM By FERNANDA CROSS ; [facility] Sertraline HCl 50 MG Oral Tablet 11/20/2023 Provider: KEYANNA VILLA MD Diagnosis: Oth mental disor ders complicating , first trimester One tablet daily Last Documented On 11/20/2023 4:06PM By KEYANNA VILLA MD ; [facility] Past Medications on file Macrobid 100 MG Oral Capsule 01/10/2024 - 01/17/2024 P rolupeder: YI BECK-BC Diagnosis: Dysuria One tablet twice a day Last Documented On 01/10/2024 2:56PM By Lindsey Chan Ez ; [facility] Terconazole 0.4% Vaginal Cream 11/01/2023 - 11/20/2023 Provider: YI A BARBOUR WH DE ICER INSTALLER-BC Diagnosis: as directed - insert one madi licator full pv q hs x 7 nocs Last Documented On 3:21PM By FERNANDA CROSS ; [facility] Macrobid 100 MG Oral Capsule 10/31/2023 - 11/20/2023 Shyla fitzgerald: YI BARBUOR WHNP-BC Diagnosis: One tablet twice a day Last Documented On 3:06PM By FERNANDA CROSS ; [facility] Medications Administered Includes: Administered Medications in patient's [...] Last Documented: On 03/03/2024 9:16AM ; [facility] On 02/18/2024 11:42AM ; [facility] On 01/20/2024 1:48PM ; [facility] On 12/23/2023 11:28AM ; [facility] On 11/20/2023 4:01PM ; [facility] Results Includes: Results from 11/10/2023 through 11/10/2024 CBC WITH DIFF [facility] [place] [facility] Ordered by KEYANNA VILLA MD on 03/03/20 24 [address] [facility], [place], [address] Collected: 03/03/2024 Report ed: 03/03/2024 11:32 tel: Last Documented On 3:33PM ; [facility] Reviewed on 03/13/2024; All test results are final unless otherwise noted. ALC 1.2 None Last Documented On 4 9:53AM ; [facility] Note: Responsible Observer: (HRG) ANC 6.5 None Last Documented On 4 9:53AM ; [facility] Note: Responsible Observer: (HRG) BASO# 0.03 th/uL (0.00 - 0.20) None Last Documented On 4 9:53AM ; [facility] Note: Responsible Observer: (HRG) BASO% 0.4 % (0.0 - 2.0) None Last Documented On 4 9:53AM ; [facility] Note: Responsible Observer: (HRG) CBC WITH DIFF See Note None Last Documented On 4 9:53AM ; [facility] Note: CBC (COMPLETE BLOOD COUNT)Responsi ble Observer: (HRG) DIFF (Y/N) NO None Last Documented On 4 9:53AM ; [facility] Note: Responsible Observer: (HRG) EOS# 0.08 th/uL (0.00 - 0.45) None Last Documented On 4 9:53AM ; [facility] Note: Responsible Observer: (HRG) EOS% 1.0 % (0.0 - 9.0) None Last Documented On 4 9:53AM ; [facility] Note: Responsible Observer: (HRG) HCT 31.6 % (38.0 - 47.0) L (Low) Last Documented On 4 9:53AM ; [facility] Note: Responsible Observer: (HRG) HGB 9.8 g/dL (12.0 - 16.0) L (Low) Last Documented On 4 9:53AM ; [facility] Note: Responsible Observer: (HRG) IG# 0.05 th/ul (0.00 - 0.10) None Last Documented On 4 9:53AM ; [facility] Note: Responsible Observer: (HRG) IG% 0.6 % (0.0 - 0.5) H (High) Last Documented On 4 9:53AM ; [facility] Note: Responsible Observer: (HRG) LYMPH# 1.15 th/uL (1.00 - 4.80) None Last Documented On 4 9:53AM ; [facility] Note: Responsible Observer: (HRG) LYMPH% 14.1 % (14.0 - 45.0) None Last Documented On 4 9:53AM ; [facility] Note: Responsible Observer: (HRG) MCH 25.7 pg (25.0 - 35.0) None Last Documented On 4 9:53AM ; [facility] Note: Responsible Observer: (HRG) MCHC 31.0 g/dL (31.0 - 36.0) None Last Documented On 4 9:53AM ; [facility] Note: Responsible Observer: (HRG) MCV 82.9 fl (80.0 - 100) None Last Documented On 4 9:53AM ; [facility] Note: Responsible Observer: (HRG) MONO# 0.35 th/uL (0.00 - 0.80) None Last Documented On 4 9:53AM ; [facility] Note: Responsible Observer: (HRG) MONO% 4.3 % (1.0 - 10.0) None Last Documented On 4 9:53AM ; [facility] Note: Responsible Observer: (HRG) MPV 12.2 fl (6.0 - 11.0) H (High) Last Documented On 4 9:53AM ; [facility] Note: Responsible Observer: (HRG) NEUT# 6.49 th/uL None Last Documented On 4 9:53AM ; [facility] Note: Responsible Observer: (HRG) NEUT% 79.6 % (45.0 - 76.0) H (High) Last Documented On 4 9:53AM ; [facility] Note: Responsible Observer: (HRG) NRBC% 0.0 % (0.0 - 0.0) None Last Documented On 4 9:53AM ; [facility] Note: Responsible Observer: (HRG) PLT 251 th/uL (150 - 400) None Last Documented On 4 9:53AM ; [facility] Note: Responsible Observer: (HRG) RBC 3.81 mil/uL (4.50 - 5.90) L (Low) Last Documented On 4 9:53AM ; [facility] Note: Responsible Observer: (HRG) RDW 14.1 % (11.0 - 16.0) None Last Documented On 4 9:53AM ; [facility] Note: Responsible Observer: (HRG) WBC 8.2 th/uL (4.5 - 11.0) None Last Documented On 4 9:53AM ; [facility] Note: Responsible Observer: (HRG) GESTATIONAL DIABETES SCREEN [facility] Laboratory Ordered by KEYANNA VILLA MD on 03/03/20 24 [address] [facility], [place], [address] Collected: 03/03/2024 Report ed: 03/03/2024 11:34 tel:[phone] Last Documented On 4 3:33PM ; [facility] Reviewed on 03/13/2024; All test results are final unless otherwise noted. GLUCOSE 110 (70 - 150) None Last Documented On 03/05/2024 9:53AM ; [facility] Note: Weeks Gestation _26 03/03/24.1134.PA . . . Gms of Glucola _50 03/03/24.1134.PA . . .Responsible Observer: (PA) GESTATIONAL DIABETES SCREEN See Note None Last Documented On 03/05/2024 9:53AM ; [facility] Note: GESTATIONAL DIABETES SCREENGlucose 1 hr, GDMSResponsible Observer: (PA) ANTIBODY SCREEN [facility] Ordered by KEYANNA VILLA MD on 03/03/20 24 [address] [facility] [place], [address] Collected: 03/03/2024 Report ed: 03/03/2024 11:55 tel:[phone] Last Documented On 4 3:33PM ; [facility] Reviewed on 03/13/2024; All test results are final unless otherwise noted. ANTIBODY SCREEN NONE DETECTED None Last Documented On 03/05/2024 9:53AM ; [facility] Note: Responsible Observer: (JACLYN) RPR (RAPID PLASMA REAGIN) [facility] Laboratory Ordered by KEYANNA VILLA MD on 03/03/20 24 [address] [facility], [place], [address] Collected: 03/03/2024 Report ed: 03/05/2024 07:03 tel:[phone] Last Documented On 4 3:33PM ; [facility] Reviewed on 03/13/2024; All test results are final unless otherwise noted. RPR (DX) W/REFL TITERAND CONFIRMATORY TESTING NON-REACTIVE (NON-REACTIVE) N (Normal) Last Documented On 9:53AM ; [facility] Note: No laboratory evidence of syphilis . If recent exposureis suspected, submit a new sample in 2-4 weeks.THIS TEST WAS PERFORMED AT:[email or web address] [id number] [place] [id number] HARLEY,MDResponsible Observer: (rfl) INFECT. CONT REPORT NO None Last Documented On 4 9:53AM ; [facility] Note: Responsible Observer: (PA) Reported Physicians [facility] Ordered by KEYANNA VILLA MD on 03/03/20 24 [address] [place], [address] Collected: 03/03/2024 Report ed: 03/05/2024 09:44 tel:[phone] Last Documented On 3:33PM ; [facility] Reviewed on 03/13/2024; All test results are final unless otherwise noted. Reported Physicians See Note None Last Documented On 03/05/2024 9:53AM ; [facility] Note: Reported Physicians:Ordering: Keyanna Villa CAttending: KEYANNA VILLAConsulting: KEYANNA VILLA URINALYSIS/REFLEX C&S [facility] Laboratory Ordered by KEYANNA VILLA MD on 03/03/20 24 [address] [place], [address] Collected: 03/03/2024 Report ed: 03/03/2024 13:06 tel: Last Documented On 4 3:33PM ; [facility] Reviewed on 03/13/2024; All test results are final unless otherwise noted. AMORPH PHOS 1+ None Last Documented On 4 9:53AM ; [facility] Note: Responsible Observer: (JACLYN) BACTERIA Few (NORMAL: NONE) None Last Documented On 4 9:53AM ; [facility] Note: Responsible Observer: (JACLYN) BILIRUBIN NEGATIVE (Normal: Negative) None Last Documented On 4 9:53AM ; [facility] Note: Responsible Observer: (JACLYN) BLOOD NEGATIVE (Normal: Negative) None Last Documented On 4 9:53AM ; [facility] Note: Responsible Observer: (JACLYN) CASTS None seen (NORMAL: NONE) None Last Documented On 4 9:53AM ; [facility] Note: Responsible Observer: (JACLYN) CLARITY SL CLOUDY (Normal: Clear) None Last Documented On 4 9:53AM ; [facility] Note: Responsible Observer: (JACLYN) COLOR YELLOW (Normal: Straw - leon) None Last Documented On 4 9:53AM ; [facility] Note: Responsible Observer: (JACLYN) CRYSTALS See Below (NORMAL: 0 - 3 /hpf) None Last Documented On 4 9:53AM ; [facility] Note: Responsible Observer: (JACLYN) CULTURE TO FOLLOW None Last Documented On 4 9:53AM ; [facility] Note: MICROSCOPIC EXAMINATION IF NOT IND ICATED WILL NOT BE PERFORMEDResponsible Observer: (JACLYN) EPI CELLS 11-20 (NORMAL: NONE) None Last Documented On 4 9:53AM ; [facility] Note: Responsible Observer: (JACLYN) GLUCOSE NEGATIVE (Normal: Negative) None Last Documented On 4 9:53AM ; [facility] Note: Responsible Observer: (JACLYN) KETONE NEGATIVE (Normal: Negative) None Last Documented On 4 9:53AM ; [facility] Note: Responsible Observer: (JACLYN) LEUKOCYTE. 2+ (Normal: Negative) A (Abnormal) Last Documented On 4 9:53AM ; [facility] Note: Responsible Observer: (JACLYN) MICROSCOPIC? SEE BELOW None Last Documented On 4 9:53AM ; [facility] Note: MICROSCOPICResponsible Observer: ( JACLYN) MUCOUS NONE SEEN None Last Documented On 4 9:53AM ; [facility] Note: Responsible Observer: (JACLYN) NITRITE. NEGATIVE (Normal: Negative) None Last Documented On 4 9:53AM ; [facility] Note: Responsible Observer: (JACLYN) pH 8.0 (Normal: 5.0 - 9.0) None Last Documented On 4 9:53AM ; [facility] Note: Responsible Observer: (JACLYN) PROTEIN NEGATIVE (Normal: Negative) None Last Documented On 4 9:53AM ; [facility] Note: Responsible Observer: (JACLYN) RBC 0-2 (NORMAL: 0 - 3 /hpf) None Last Documented On 4 9:53AM ; [facility] Note: Responsible Observer: (JACLYN) SP GRAVITY 1.015 (Normal: 1.005-1.030) None Last Documented On 4 9:53AM ; [facility] Note: Responsible Observer: (JACLYN) TRICHOMONAS None Seen None Last Documented On 4 9:53AM ; [facility] Note: Responsible Observer: (JACLYN) UA SPECIMEN CVS (CLEAN VO None Last Documented On 4 9:53AM ; [facility] Note: Responsible Observer: (KLB) UROBILINOGEN 0.2 (Normal: Negative) None Last Documented On 4 9:53AM ; [facility] Note: Responsible Observer: (JACLYN) WBC 6-10 (NORMAL: 0 - 5 /hpf) A (Abnormal) Last Documented On 4 9:53AM ; [facility] Note: Responsible Observer: (JACLYN) YEAST None Seen None Last Documented On 4 9:53AM ; [facility] Note: Responsible Observer: (JACLYN) URINALYSIS/REFLEX C See Note None Last Documented On 4 9:53AM ; [facility] Note: URINALYSIS/REFLEX C&SResponsible O bserver: (JACLYN) .CULTURE URINE CLEAN VOID SPECIMEN [facility] Laboratory Ordered by KEYANNA VILLA MD on 03/03/20 24 [address] [facility], [place], [address] Collected: 03/03/2024 Report ed: 03/05/2024 09:41 tel:[phone] Last Documented On 3:33PM ; [facility] Reviewed on 03/13/2024; All test results are final unless otherwise noted. .CULTURE URINE CLEAN VOID SPECIMEN See Note None Last Documented On 03/05/2024 9:53AM ; [facility] Note: _URINE CULTURE_ _CVS_ INFECT. CONT REPORT NO None Last Documented On 03/05/2024 9:53AM ; [facility] Note: _COLONY_COUNT_<50,000._MIXED_FLORA,_SUGGEST_ REPEAT 03/05/2441.SEP. 03/05/24.DANG.COMPLETENOResponsible Observer: (DANG) HIV SCREEN Manual Lab Entry Ordered by KEYANNA VILLA MD on 11/27/19 Collected: 11/20/2023 Reported: 11/22/19 16:12 Last Documented On 4 3:56PM ; [facility] Reviewed on 11/27/2023; All test results are final unless otherwise noted. Review Note Provider Name Date Varicella IGM - Negative - 0.46 11/27/2023 HIV SCREEN Non-Reactive (Non-Reactive) N (Normal) Last Documented On 4 3:51PM ; [facility] RPR W/ REFLEX TITER Manual Lab Entry Ordered by KEYANNA VILLA MD on 11/27/19 Collected: 11/20/2023 Reported: 11/22/19 16:12 Last Documented On 4 3:56PM ; [facility] Reviewed on 11/27/2023; All test results are final unless otherwise noted. Review Note Provider Name Date Varicella IGM - Negative - 0.46 11/27/2023 RPR W/ REFLEX TITER Non-Reactive (Non-Reactive) N (Normal) Last Documented On 4 3:51PM ; [facility] CBC WITH DIFF [facility] Ordered by KEYANNA VILLA MD on 11/20/19 [address] [facility], [place], [address] Collected: 11/20/2023 Report ed: 11/20/2023 17:42 tel: Last Documented On 4 10:14AM ; [facility] Reviewed on 02/26/2024; All test results are final unless otherwise noted. ALC 1.9 None Last Documented On 4 5:55PM ; [facility] Note: Responsible Observer: (JACLYN) ANC 4.6 None Last Documented On 4 5:55PM ; [facility] Note: Responsible Observer: (JACLYN) BASO# 0.05 th/uL (0.00 - 0.20) None Last Documented On 4 5:55PM ; [facility] Note: Responsible Observer: (JACLYN) BASO% 0.7 % (0.0 - 2.0) None Last Documented On 4 5:55PM ; [facility] Note: Responsible Observer: (JACLYN) CBC WITH DIFF See Note None Last Documented On 4 5:55PM ; [facility] Note: CBC (COMPLETE BLOOD COUNT)Responsi ble Observer: (JACLYN) DIFF (Y/N) NO None Last Documented On 4 5:55PM ; [facility] Note: Responsible Observer: (JACLYN) EOS# 0.13 th/uL (0.00 - 0.45) None Last Documented On 4 5:55PM ; [facility] Note: Responsible Observer: (JACLYN) EOS% 1.8 % (0.0 - 9.0) None Last Documented On 4 5:55PM ; [facility] Note: Responsible Observer: (JACLYN) HCT 35.3 % (38.0 - 47.0) L (Low) Last Documented On 4 5:55PM ; [facility] Note: Responsible Observer: (JACLYN) HGB 11.6 g/dL (12.0 - 16.0) L (Low) Last Documented On 4 5:55PM ; [facility] Note: Responsible Observer: (JACLYN) IG# 0.02 th/ul (0.00 - 0.10) None Last Documented On 4 5:55PM ; [facility] Note: Responsible Observer: (JACLYN) IG% 0.3 % (0.0 - 0.5) None Last Documented On 4 5:55PM ; [facility] Note: Responsible Observer: (JACLYN) LYMPH# 1.92 th/uL (1.00 - 4.80) None Last Documented On 4 5:55PM ; [facility] Note: Responsible Observer: (JACLYN) LYMPH% 26.7 % (14.0 - 45.0) None Last Documented On 4 5:55PM ; [facility] Note: Responsible Observer: (JACLYN) MCH 26.6 pg (25.0 - 35.0) None Last Documented On 4 5:55PM ; [facility] Note: Responsible Observer: (JACLYN) MCHC 32.9 g/dL (31.0 - 36.0) None Last Documented On 4 5:55PM ; [facility] Note: Responsible Observer: (JACLYN) MCV 81.0 fl (80.0 - 100) None Last Documented On 4 5:55PM ; [facility] Note: Responsible Observer: (JACLYN) MONO# 0.48 th/uL (0.00 - 0.80) None Last Documented On 4 5:55PM ; [facility] Note: Responsible Observer: (JACLYN) MONO% 6.7 % (1.0 - 10.0) None Last Documented On 4 5:55PM ; [facility] Note: Responsible Observer: (JACLYN) MPV 11.8 fl (6.0 - 11.0) H (High) Last Documented On 4 5:55PM ; [facility] Note: Responsible Observer: (JACLYN) NEUT# 4.60 th/uL None Last Documented On 4 5:55PM ; [facility] Note: Responsible Observer: (JACLYN) NEUT% 63.8 % (45.0 - 76.0) None Last Documented On 4 5:55PM ; [facility] Note: Responsible Observer: (JACLYN) NRBC% 0.0 % (0.0 - 0.0) None Last Documented On 4 5:55PM ; [facility] Note: Responsible Observer: (JACLYN) PLT 227 th/uL (150 - 400) None Last Documented On 4 5:55PM ; [facility] Note: Responsible Observer: (JACLYN) RBC 4.36 mil/uL (4.50 - 5.90) L (Low) Last Documented On 4 5:55PM ; [facility] Note: Responsible Observer: (JACLYN) RDW 13.6 % (11.0 - 16.0) None Last Documented On 4 5:55PM ; [facility] Note: Responsible Observer: (JACLYN) WBC 7.2 th/uL (4.5 - 11.0) None Last Documented On 4 5:55PM ; [facility] Note: Responsible Observer: (JACLYN) ABO GROUP & RH TYPE [facility] Ordered by KEYANNA VILLA MD on 11/20/19 [address] [facility] [place], [address] Collected: 11/20/2023 Report ed: 11/20/2023 18:21 tel:[phone] Last Documented On 4 10:14AM ; [facility] Reviewed on 02/26/2024; All test results are final unless otherwise noted. ABO GROUP See Note None Last Documented On 02/25/2024 5:55PM ; [facility] Note: GROUP AND TYPEBResponsible Observer: (JACLYN) Rh TYPE Negative None Last Documented On 02/25/2024 5:55PM ; [facility] Note: Responsible Observer: (JACLYN) RPR (RAPID PLASMA REAGIN) [facility] Laboratory Ordered by KEYANNA VILLA MD on 11/20/19 [address] [facility], [place], [address] Collected: 11/20/2023 Report ed: 11/22/2023 16:12 tel:[phone] Last Documented On 4 10:14AM ; [facility] Reviewed on 02/26/2024; All test results are final unless otherwise noted. RPR (DX) W/REFL TITERAND CONFIRMATORY TESTING NON-REACTIVE (NON-REACTIVE) N (Normal) Last Documented On 4 5:55PM ; [facility] Note: No laboratory evidence of syphilis . If recent exposureis suspected, submit a new sample in 2-4 weeks.THIS TEST WAS PERFORMED AT:[email or web address] [id number] [place] [id number] VO,MDResponsible Observer: (rfl) INFECT. CONT REPORT NO None Last Documented On 4 5:55PM ; [facility] Note: Responsible Observer: (TER) Reported Physicians [facility] La [facility] Ordered by KEYANNA VILLA MD on 11/20/19 [address] [facility], [place], [address] Collected: 11/20/2023 Report ed: 11/30/2023 07:43 tel:[phone] Last Documented On 10:14AM ; [facility] Reviewed on 02/26/2024; All test results are final unless otherwise noted. Reported Physicians See Note None Last Documented On 02/25/2024 5:55PM ; [facility] Note: Reported Physicians:Ordering: Keyanna Villa CAttending: KEYANNA VILLAConsulting: KEYANNA VILLA RUBELLA IMMUNE STATUS Manual Lab Entry Ordered by KEYANNA VILLA MD on 11/27/19 Collected: 11/20/2023 Reported: 11/22/19 16:11 Last Documented On 4 3:56PM ; [facility] Reviewed on 11/27/2023; All test results are final unless otherwise noted. Review Note Provider Name Date Varicella IGM - Negative - 0.46 11/27/2023 Rubella Antibody Immune 2.03 (N) N (Normal) Last Documented On 4 3:51PM ; [facility] HSV-1 Manual Lab Entry Ordered by KEYANNA VILLA MD on 11/27/19 Collected: 11/20/2023 Reported: 11/23/19 12:35 Last Documented On 4 3:56PM ; [facility] Reviewed on 11/27/2023; All test results are final unless otherwise noted. Review Note Provider Name Date Varicella IGM - Negative - 0.46 11/27/2023 HSV-1 <0.90 Negative (N) N (Normal) Last Documented On 4 3:51PM ; [facility] DRUGS OF ABUSE SCREEN (DONE IN HOUSE) [facility] Laboratory Ordered by KEYANNA VILLA MD on 11/20/19 [address] [facility], [place], [address] Collected: 11/20/2023 Report ed: 11/20/2023 18:01 tel:[phone] Last Documented On 4 10:14AM ; [facility] Reviewed on 02/26/2024; All test results are final unless otherwise noted. Amphetamines NEGATIVE (NORMAL: NEGATIVE) None Last Documented On 4 5:55PM ; [facility] Note: Responsible Observer: (TER) Barbiturates NEGATIVE (NORMAL: NEGATIVE) None Last Documented On 4 5:55PM ; [facility] Note: Responsible Observer: (TER) Benzodiazepines NEGATIVE (NORMAL: NEGATIVE) None Last Documented On 4 5:55PM ; [facility] Note: Responsible Observer: (TER) Buprenorphine NEGATIVE (NORMAL: NEGATIVE) None Last Documented On 4 5:55PM ; [facility] Note: TCA - Tricyclic AntidepressantsW ARNING! THIS TEST IS TO BE USED SOLELY FOR THE MEDICAL EVALUATION OF THEPATIENT.This screening test is a qualitative immunoassay. The concentration of drugand/or drug metabolites present in the urine specimen cannot be estimated.This test differentiates between positive and negative specimens at thedesignated cut-off concentrations.Responsible Observer: (TER) Cocaine NEGATIVE (NORMAL: NEGATIVE) None Last Documented On 4 5:55PM ; [facility] Note: Responsible Observer: (TER) DRUGS OF ABUSE SCREEN (DONE IN HOUSE) See Note None Last Documented On 4 5:55PM ; [facility] Note: Drugs of Abuse ScreenResponsible O bserver: (TER) Methadone NEGATIVE (NORMAL: NEGATIVE) None Last Documented On 4 5:55PM ; [facility] Note: Responsible Observer: (TER) Methamphetamines NEGATIVE (NORMAL: NEGATIVE) None Last Documented On 4 5:55PM ; [facility] Note: Responsible Observer: (TER) Opiates NEGATIVE (NORMAL: NEGATIVE) None Last Documented On 4 5:55PM ; [facility] Note: Responsible Observer: (TER) Oxycodone NEGATIVE (NORMAL: NEGATIVE) None Last Documented On 4 5:55PM ; [facility] Note: Responsible Observer: (TER) PCP(Phencyclidine) NEGATIVE (NORMAL: NEGATIVE) None Last Documented On 4 5:55PM ; [facility] Note: Responsible Observer: (TER) TCA NEGATIVE (NORMAL: NEGATIVE) None Last Documented On 4 5:55PM ; [facility] Note: Responsible Observer: (TER) THC NEGATIVE (NORMAL: NEGATIVE) None Last Documented On 4 5:55PM ; [facility] Note: Responsible Observer: (TER) URINALYSIS WITH RELFEX TO MICROSCOPY [facility] Laboratory Ordered by KEYANNA VILLA MD on 11/20/19 24 [address] [facility], [place], [address] Collected: 11/20/2023 Report ed: 11/20/2023 17:50 tel:[phone] Last Documented On 4 10:14AM ; [facility] Reviewed on 02/26/2024; All test results are final unless otherwise noted. BILIRUBIN NEGATIVE (Normal: Negative) None Last Documented On 4 5:55PM ; [facility] Note: Responsible Observer: (TER) BLOOD NEGATIVE (Normal: Negative) None Last Documented On 4 5:55PM ; [facility] Note: Responsible Observer: (TER) CLARITY CLEAR (Normal: Clear) None Last Documented On 4 5:55PM ; [facility] Note: Responsible Observer: (TER) COLOR YELLOW (Normal: Straw - leon) None Last Documented On 4 5:55PM ; [facility] Note: Responsible Observer: (TER) GLUCOSE NEGATIVE (Normal: Negative) None Last Documented On 4 5:55PM ; [facility] Note: Responsible Observer: (TER) KETONE NEGATIVE (Normal: Negative) None Last Documented On 4 5:55PM ; [facility] Note: Responsible Observer: (TER) LEUKOCYTE NEGATIVE (Normal: Negative) None Last Documented On 4 5:55PM ; [facility] Note: Responsible Observer: (TER) MICROSCOPIC NOT INDICATED None Last Documented On 4 5:55PM ; [facility] Note: MICROSCOPIC EXAMINATION IF NOT IND ICATED WILL NOT BE PERFORMEDResponsible Observer: (TER) NITRITE NEGATIVE (Normal: Negative) None Last Documented On 4 5:55PM ; [facility] Note: Responsible Observer: (TER) pH 6.0 (Normal: 5.0 - 9.0) None Last Documented On 4 5:55PM ; [facility] Note: Responsible Observer: (TER) PROTEIN NEGATIVE (Normal: Negative) None Last Documented On 4 5:55PM ; [facility] Note: Responsible Observer: (TER) SP GRAVITY 1.025 (Normal: 1.005-1.030) None Last Documented On 4 5:55PM ; [facility] Note: Responsible Observer: (TER) UA SPECIMEN CVS (CLEAN V None Last Documented On 4 5:55PM ; [facility] Note: Responsible Observer: (TER) UROBILINOGEN 0.2 (Normal: Negative) None Last Documented On 4 5:55PM ; [facility] Note: Responsible Observer: (TER) URINALYSIS WITH RELFEX TO MICROSCOPY See Note None Last Documented On 4 5:55PM ; [facility] Note: URINALYSIS W REFLEX TO MICROSCOPYR esponsible Observer: (TER) CULTURE URINE WITH COLONY COUNT [facility] Laboratory Ordered by KEYANNA VILLA MD on 11/20/19 24 [address] [place], [address] Collected: 11/20/2023 Report ed: 11/22/2023 07:38 tel: Last Documented On 10:14AM ; [facility] Reviewed on 02/26/2024; All test results are final unless otherwise noted. UA SPECIMEN CVS (CLEAN None Last Documented On 02/25/2024 5:55PM ; [facility] Note: Responsible Observer: (MLB) CULTURE URINE WITH COLONY COUNT See Note None Last Documented On 02/25/2024 5:55PM ; [facility] Note: _URINE CULTURE_ INFECT. CONT REPORT NO None Last Documented On 02/25/2024 5:55PM ; [facility] Note: _COLONY_COUNT_<20,000_MIXED_GRAM_POSITIVE_FLORA . 11/22/23.0738.MLB. 11/22/23.0738.MLB.COMPLETECVS (CLEANNOResponsible Observer: (MLB) HEPATITIS B SURFACE ANTIGEN [facility] Laboratory Ordered by KEYANNA VILLA MD on 11/20/19 [address] , [place], [address] Collected: 11/20/2023 Report ed: 11/22/2023 16:11 tel: Last Documented On 4 10:14AM ; [facility] Reviewed on 02/26/2024; All test results are final unless otherwise noted. HEPATITIS B SURFACEANTIGEN NON-REACTIVE (NON-REACTIVE) N (Normal) Last Documented On 4 5:55PM ; [facility] Note: For additional information, please refer tohttp://education.Mimub/faq/ADV649(This link is being provided for informational/educational purposes only.)THIS TEST WAS PERFORMED AT:[employer] [id number] [place] [id number] VO,MDResponsible Observer: (rfl) RUBELLA [facility] La boratory Ordered by KEYANNA VILLA MD on 11/20/19 24 [address] , [place], [address] Collected: 11/20/2023 Report ed: 11/22/2023 16:11 tel: Last Documented On 4 10:14AM ; [facility] Reviewed on 02/26/2024; All test results are final unless otherwise noted. RUBELLA AB (IGG), IMMUNESTATUS 2.03 Index N (Normal) Last Documented On 02/25/2024 5:55PM ; [facility] Note: Index Interpretation ----- <0.90 Not consistent with immunity 0.90-0.99 Equivocal > or = 1.00 Consistent with immunityThe presence of rubella IgG antibody suggestsimmunization or past or current infection withrubella virus.THIS TEST WAS PERFORMED AT:[id number] [place] [id number] VO,MDResponsible Observer: (rfl) HIV TEST [facility] La boratory Ordered by KEYANNA VILLA MD on 11/20/19 24 [address] [facility], [place], [address] Collected: 11/20/2023 Report ed: 11/22/2023 16:12 tel: Last Documented On 4 10:14AM ; [facility] Reviewed on 02/26/2024; All test results are final unless otherwise noted. HIV AG/AB, 4TH GEN NON-REACTIVE (NON-REACTIVE) N (Normal) Last Documented On 4 5:55PM ; [facility] Note: HIV-1 antigen and HIV-1/HIV-2 anti bodies [...] for this purpose.For additional information please refer tohttp://education.Mimub/faq/OMT670(This link is being provided for informational/educational purposes only.)The performance of this assay has not been clinicallyvalidated in patients less than 2 years old.THIS TEST WAS PERFORMED AT:[employer] [id number] [place] [id number] VO,MDResponsible Observer: (rfl) INFECT. CONT REPORT NO None Last Documented On 4 5:55PM ; [facility] Note: Responsible Observer: (TER) VARICELLA-ZOSTER VIRUS IGG ANTIBODY [facility] Laboratory Ordered by KEYANNA VILLA MD on 11/20/19 [address] [facility], [place], [address] Collected: 11/20/2023 Report ed: 11/22/2023 16:12 tel: Last Documented On 4 10:14AM ; [facility] Reviewed on 02/26/2024; All test results are final unless otherwise noted. VARICELLA ZOSTER VIRUSANTIBO DY (IGG) <135.00 index L (Low) Last Documented On 02/25/2024 5:55PM ; [facility] Note: Index Interpretation --------- <135.00 Negative - [...] Antibody Immunity Screen, ACIF.THIS TEST WAS PERFORMED AT:[employer] [id number] [place] [id number] VO,MDResponsible Observer: (rfl) HEPATITIS C ANTIBODY WITH REFLEX TO HCV [facility] Laboratory Ordered by KEYANNA VILLA MD on 11/20/19 [address] [facility], [place], [address] Collected: 11/20/2023 Report ed: 11/22/2023 16:13 tel: Last Documented On 4 10:14AM ; [facility] Reviewed on 02/26/2024; All test results are final unless otherwise noted. HEPATITIS C ANTIBODY WITH RE FLEX TO HCV See Note None Last Documented On 02/25/2024 5:55PM ; [facility] Note: _HEPATITIS C ANTIBODY_HEPATITIS C AB W/REFL TO HCV RNA, QN, PCRReported: 11/22/2023 11:00 Status=F TEST RESULT FLAG RANGE UNITS HEPATITIS C ANTIBODY NON-REACTIVE N NON-REACTIVE 11/22/23.1324.rfl.COMPLETE.AMLRHCV antibody was non-reactive. There is no laboratoryevidence of HCV infection.In most cases, no further action is required. However,if recent HCV exposure is suspected, a test for HCV RNA(test code 93025) is suggested.For additional information please refer tohttp://education.Mimub/faq/SYL65z0 (This link is being provided for informational/educational purposes only.)THIS TEST WAS PERFORMED AT:[employer] [id number] [place] [id number]-[id number] VO,MD INFECT. CONT REPORT NO None Last Documented On 02/25/2024 5:55PM ; [facility] Note: Responsible Observer: (TER) HERPES SIMPLEX I & II IgG [facility] Laboratory Ordered by KEYANNA VILLA MD on 11/20/19 24 [address] [place], [address] Collected: 11/20/2023 Report ed: 11/23/2023 12:35 tel: Last Documented On 10:14AM ; [facility] Reviewed on 02/26/2024; All test results are final unless otherwise noted. HSV 1 IGG, TYPE SPECIFICAB <0.90 index N (Normal) Last Documented On 02/25/2024 5:55PM ; [facility] Note: Responsible Observer: camryn) HSV 2 IGG, TYPE SPECIFICAB <0.90 index N (Normal) Last Documented On 02/25/2024 5:55PM ; [facility] Note: Index Interpretation ----- <0.90 Negative 0.90-1.09 [...] immunocompromised patients,or screening.For additional information, please refer tohttp://education.[employer]/faq/KKY050(This link is being provided for informational/educational purposes only.)THIS TEST WAS PERFORMED AT:[employer] [id number] [place] [address]DERF-SSFH VO,MDResponsible Observer: (natalie) VARICELLA-ZOSTER VIRUS IGM ANTIBODY [facility] Laboratory Ordered by KEYANNA VILLA MD on 11/20/19 24 [address] [place], [address] Collected: 11/20/2023 Report ed: 11/27/2023 09:03 tel: Last Documented On 10:14AM ; [facility] Reviewed on 02/26/2024; All test results are final unless otherwise noted. VARICELLA ZOSTER VIRUSANTIBO DY (IGM) 0.42 N (Normal) Last Documented On 02/25/2024 5:55PM ; [facility] Note: Reference range: < or = 0.90Interpretive [...] two or more weeks.THIS TEST WAS PERFORMED AT:[employer]/[id number] [place] [address]YVLGZSHALONDA CARLISLE MD,PHD,MBAResponsible Observer: (rfl) CYSTIC FIBROSIS SCREEN [facility] Laboratory Ordered by KEYANNA VILLA MD on 11/20/19 24 [address] [facility], [place], [address] Collected: 11/20/2023 Report ed: 11/30/2023 07:43 tel: Last Documented On 10:14AM ; [facility] Reviewed on 02/26/2024; All test results are final unless otherwise noted. CF RESULT NEGATIVE (NEGATIVE) None Last Documented On 02/25/2024 5:55PM ; [facility] Note: NEGATIVE; NONE OF THE MUTATIONS LISTED BELOW WERE DETECTEDResponsible Observer: (rfl) INTERPRETATION SEE NOTE None Last Documented On 02/25/2024 5:55PM ; [facility] Note: This result does not rule out the presence of a mutation ora diagnosis of cystic fibrosis disease (CF). The risk formutations that cause CF other than the ones tested dependsgreatly on family history, clinical presentation, andethnicity. Chance of Having a CF MutationEthnic Group Detection Before After Negative Rate Test ResultAshkenazi Buddhist 94% 1 in 24 1 in 400Non- 88% 1 in 25 1 in 208CaucasianHispanic-Spanish 72% 1 in 46 1 in 164African-Spanish 65% 1 in 65 1 in 186Asian-Spanish 49% 1 in 94 1 in 184Other insufficient data availableHealth care providers, please contact your local [employer] genetic counselor or call [facility] at [employer] ([phone]) for assistance withinterpretation of these results.Responsible Observer: (rfl) MUTATIONS/POLYMORPHISMS SEE NOTE None Last Documented On 02/25/2024 5:55PM ; [facility] Note: MUTATIONS ANALYZED:G85E (c.254G>A) S549N (c.1646G>A)394delTT (c.262delTT) G551D (c.1652G>A)R117H (c.350G>A) R553X (c.1657C>T)621+1 G>T (c.489+1G>T) R560T (c.1679G>C)711+1 G>T (c.579+1G>T) 1898+1 G>A (c.1766+1G>A)1078delT (c.948delT) 2183AA>G (c.2051delAAinsG)R334W (c.1000C>T) 2184delA (c.2052delA)R347H (c.1040G>A) 2789+5 G>A (c.2657+5G>A)R347P (c.1040G>C) 3120+1 G>A (c.2988+1G>A)A455E (c.1364C>A) Q9474L (c.3484C>T)V305oei (c.1519delATC) 3659delC (c.3528delC)M317ohk (c.1521delCTT) 3849+10kb C>T (c.3717+58774O>T)V520F (c.1558G>T) 3876delA (c.3744delA)1717-1 G>A (c.1585-1G>A) 3905insT (c.3773insT)G542X (c.1624G>T) W2275Z (c.3846G>A)S549R (c.1645A>C or c.1647T>G) R0677A (c.3909C>G)This assay detects thirty-two mutations, including thetwenty-three core mutations recommended by the AmericanCollege of Medical Genetics (ACMG) and the [place] Congressof Obstetricians and Gynecologists (ACOG) forpopulation-based CF [...] None Last Documented On 02/25/2024 5:55PM ; [facility] Note: The mutations are detected by multiplex-polymerase chainreaction (PCR) amplification of specific CF gene regions,followed by nucleotide sequence analysis on a massivelyparallel sequencing platform. Although rare, false positiveor false negative results may occur. All results should beinterpreted in the context of clinical findings, relevanthistory, and other laboratory data.Responsible Observer: (rfl) REVIEWER SEE NOTE None Last Documented On 02/25/2024 5:55PM ; [facility] Note: A portion of the testing was performed at [facility].Laboratory results and submitted clinical informationreviewed by Chet Russ, Ph.D., [facility], [facility].For additional information, please refer tohttp://education.G-mode.mobile mum/faq/cfscreen(This link is being provided for informational/educationalpurposes only.)This test was developed and its analytical performancecharacteristics have been determined by [employer].It has not been cleared or approved by FDA. This assay hasbeen validated pursuant to the CLIA regulations and is usedfor clinical purposes.THIS TEST WAS PERFORMED AT:[employer]/[address] [id number] [facility] [address]STUBKSHALONDA CARLISLE MD,PHD,MBAResponsible Observer: (rfl) ETHNICITY: WB None Last Documented On 02/25/2024 5:55PM ; [facility] Note: Responsible Observer: (rfl) CF PARTNER: NO None Last Documented On 02/25/2024 5:55PM ; [facility] Note: Responsible Observer: (CET) ANTIBODY SCREEN [facility] La boratory Ordered by KEYANNA VILLA MD on 11/20/19 24 [address] [place], [address] Collected: 11/20/2023 Report ed: 11/20/2023 18:21 tel: Last Documented On 10:14AM ; [facility] Reviewed on 02/26/2024; All test results are final unless otherwise noted. ANTIBODY SCREEN NONE DETECTED None Last Documented On 02/25/2024 5:55PM ; [facility] Note: Responsible Observer: (JACLYN) HEPATITS B SURFACE ANTIGEN Manual Lab En try Ordered by KEYANNA VILLA MD on 11/27/19 Collected: Reported: 11/22/2023 16:11 Last Documented On 4 3:56PM ; [facility] Reviewed on 11/27/2023; All test results are final unless otherwise noted. Review Note Provider Name Date Varicella IGM - Negative - 0.46 11/27/2023 HEPATITS B SURFACE ANTIGEN Non-Reactive (Non-Reactive) N (Normal) Last Documented On 4 3:51PM ; [facility] Varicella Manual Lab Entry Ordered by KEYANNA VILLA MD on 11/27/19 Collected: Reported: 11/22/2023 16:12 Last Documented On 4 3:56PM ; [facility] Reviewed on 11/27/2023; All test results are final unless otherwise noted. Review Note Provider Name Date Varicella IGM - Negative - 0.46 11/27/2023 Varicella IgG <135.00 Negative (L) N (Normal) Last Documented On 4 3:51PM ; [facility] HSV-2 Manual Lab Entry Ordered by KEYANNA VILLA MD on 11/27/19 Collected: Reported: 11/23/2023 12:35 Last Documented On 4 3:56PM ; [facility] Reviewed on 11/27/2023; All test results are final unless otherwise noted. Review Note Provider Name Date Varicella IGM - Negative - 0.46 11/27/2023 HSV-2Ab,IgG <0.90 Negative (n) N (Normal) Last Documented On 4 3:51PM ; [facility] History of Present Illness History of Present Illness not supported for this document type No History of Present Illness Recorded Social History Description Last Updated Not using alcohol 10/30/2023 Last Documented On 4 11:14AM ; [facility] Sexually active 10/30/2023 Last Documented On 4 11:14AM ; [facility] Sexually active with 1 partners in the l ast year 10/30/2023 Last Documented On 4 11:14AM ; [facility] Does not have anal sex 10/30/2023 Last Documented On 4 11:14AM ; [facility] Former smoker 10/30/2023 Last Documented On 4 11:14AM ; [facility] Has not used injectable drugs 10/30/2023 Last Documented On 4 11:14AM ; [facility] Has sex with males only 10/30/2023 Last Documented On 4 11:14AM ; [facility] Have you ever had sex (vaginal or penis in anus or rectum)? 10/30/2023 Last Documented On 4 11:14AM ; [facility] No consumption of alcohol 10/30/2023 Last Documented On 4 11:14AM ; [facility] No drug use by a sexual partner 10/30/19 24 Last Documented On 4 11:14AM ; [facility] Not using drugs 10/30/2023 Last Documented On 4 11:14AM ; [facility] Partner has not had a STD in the past ye ar 10/30/2023 Last Documented On 4 11:14AM ; [facility] Patient does not report having sex when she didn't want to 10/30/2023 Last Documented On 4 11:14AM ; [facility] Patient has not had sex unde r the influence of alcohol or drugs in the last year 10/30/2023 Last Documented On 4 11:14AM ; [facility] Sexual partner has not had o ther partners while in relationship with patient 10/30/2023 Last Documented On 4 11:14AM ; [facility] Sexual partner has not had sex with pros titutes 10/30/2023 Last Documented On 4 11:14AM ; [facility] Stopped smoking years ago 08/2023 Last Documented On 4 11:14AM ; [facility] Smoking Status Unknown Procedures and Surgical History Includes: Procedures from 11/10/2023 through 11/10/2024 Procedures Code Diagnosis Performing Provider Service L ocation Service Date CLINIC VISIT T1015 Encntr for suprv sn of normal first preg, second trimester KEYANNA VILLA MD [facility] 03/03/2024 Last Documented On 4 6:24PM ; [facility] CLINIC VISIT T1015 Encntr for suprv sn of normal first preg, second trimester KEYANNA VILLA MD [facility] 02/18/2024 Last Documented On 4 6:24PM ; [facility] CLINIC VISIT T1015 Encntr for suprv sn of normal first preg, second trimester KEYANNA VILLA MD [facility] 01/20/2024 Last Documented On 4 2:32PM ; [facility] CLINIC VISIT T1015 Encntr for suprv sn of normal first preg, second trimester KEYANNA VILLA MD [facility] 12/23/2023 Last Documented On 4 4:06PM ; [facility] CLINIC VISIT T1015 Encntr for suprv sn of normal first preg, first trimester, Oth mental disorders complicating , first trimester KEYANNA VILLA MD [facility] 11/20/2023 Last Documented On 4 2:55PM ; [facility] Medical History Includes: Medical History in patient's chart Description Last Updated History of breast disorders 11/20/2023 Last Documented On 4 4:08PM ; [facility] History of depression 11/20/2023 Last Documented On 4 4:08PM ; [facility] History of hematologic disorder 11/20/19 24 Last Documented On 4 4:08PM ; [facility] Physical trauma 11/20/2023 Last Documented On 4 4:08PM ; [facility] LMP: 09/02/2023 10/30/2023 Last Documented On 4 11:14AM ; [facility] No previous STD 10/30/2023 Last Documented On 4 11:14AM ; [facility] No. of Pregnancies: 1 10/30/2023 Last Documented On 4 11:14AM ; [facility] Family History Includes: Family History in patient's [...] Diagnosis RETURN OB EXAM KEYANNA VILLA MD [facility] 03/03/20 8:53AM 9:54AM RETURN OB EXAM KEYANNA VILLA MD [facility] 02/18/20 11:04AM 12:04PM * PHONE CALL KEYANNA VILLA MD 02/12/20 24 01/20/2024 9:26AM 01/20/2024 11:59PM RETURN OB EXAM KEYANNA VILLA MD [facility] 01/20/20 24 1:29PM 2:14PM * PHONE CALL [facility] 01/10/20 24 12/23/2023 2:47PM 12/23/2023 11:59PM RETURN OB EXAM KEYANNA VILLA MD [facility] 12/23/19 24 11:18AM 11:57AM * PHONE CALL KEYANNA VILLA MD 12/09/19 24 11/20/2023 10:00AM 11/20/2023 11:59PM NEW OB EXAM ESTABLISHED PATIENT KEYANNA VILLA MD [facility] 11/20/19 2:56PM 4:10PM Insurance Includes: Active Insurance Policies Plan Name Member ID Group # Subscriber Relationship Effect lizy Dates 1 - MEDICAID [place] [facility] [id number] [place] Clinical Notes Includes: Signed Clinical Notes starting from 10/19/2022 * Progress note Date Encounter Last Documented by 03/03/2024 RETURN OB EXAM Last documented on 03/03/2024; 9:44 AM, KEYANNA VILLA MD; [facility] History of Present Illness [...] 02/18/2024; 11:58 AM, KEYANNA VILLA MD; [facility] History of Present Illness [...] finish anatomy screen; (last u/s 02/04/24 at [facility] EndCited StartCited - Other PHY ORDER/COMMENT needs [...] 02/12/2024; 3:33 PM, KEYANNA VILLA MD; [facility] OB Visit Return Visit [...] where she works.) She had eaten two [employer] breakfast bars along with some water. She [...] 01/20/2024; 2:09 PM, KEYANNA VILLA MD; [facility] History of Present Illness [...] w Heart Rate: 145 bpm Edema: None Cando, pts dad, present today. Pt states she [...] on 01/13/2024; 6:11 AM, YI BECK-; [facility] Active Problems & Conditions [...] worsen. pt phone # for return call: [phone] Date/Initials: 01/10/24 LV. History of Present Illness [...] 12/23/2023; 11:51 AM, KEYANNA VILLA MD; [facility] History of Present Illness [...] having a boy per [employer] u/s in [place]; Pt states no c/o; pt only took [...] 12/09/2023; 11:33 AM, KEYANNA VILLA MD; [facility] OB Visit Return Visit [...] 11/20/2023; 4:08 PM, KEYANNA VILLA MD; [facility] History of Present Illness [...] defects, cystic fibrosis, Robin-Sachs, thalassemia, Kaushal syndrome, Wildwood's chorea, autism, mental retardation, muscular dystrophy, sickle [...]
--- OUTSIDE RECORDS SUMMARY | 2024-11-10 16:30 | XMS_ITS | Clinical Summary ---
Author Organization [facility] Address [address] [place] [address] Phone Care Team Providers Care Telegraphic Service Dispatcher Name Role Phone Unavailable Unavailable Unavailable Reason for Visit and Chief Complaint RETURN OB EXAM Problems Includes: Problems addressed during this encounter and other active Problems All Visits Onset Date Resolved Date Provider Condition S tatus History of Breast Disorders 11/20/2023 KEYANNA BOX MD Active Last Documented On 11/20/2023 4:08PM ; [facility] Note: PGM cancer History of Depression 11/20/2023 KEYANNA BOX MD Active Last Documented On 11/20/2023 4:08PM ; [facility] Note: pt dx at 5 yo was on ritalin for A DHD at 8 y o x one year; no meds since then; dad, mom History of Hematologic Disorders 11/20/2023 KEYANNA BOX MD Active Last Documented On 11/20/2023 4:08PM ; [facility] Note: dad History of Renal Disease 11/20/2023 KEYANNA BOX MD Active Last Documented On 11/20/2023 4:08PM ; [facility] Note: dad kidney cancer, had kidney breana crystal History of Reported Physical Trauma 11/20/2023 KEYANNA BOX MD Active Last Documented On 4 4:08PM ; [facility] Reported Family History of Congenital Heart Disease 10/30/2023 [facility] A ctive Last Documented On 10/30/2023 11:05AM ; [facility] Note: mom hemophelia carrier 09/02/2023 KEYANNA BOX MD Active Last Documented On 4 3:04PM ; [facility] Plan of Treatment Pending Tests Order Diagnosis Results Due Ordering P rovider Lab Penta screen 12/23/23 KEYANNA BELCHER MD Last Documented On 4 11:53AM ; [facility] Ultrasound (OB) - U/S COMPLETE OB U/S >/ = 14 WKS , SINGLE FETUS Matern care for oth or susp poor fetl grth, 2nd tri, unsp 01/20/24 KEYANNA BOX MD Last Documented On 4 3:29PM ; [facility] Lab Antibody Scr, RBC w/ reflex id 02/17 KEYANNA BOX MD Last Documented On 4 8:22AM ; [facility] Lab RPR (Monitoring) w/ reflex Titer KEYANNA BOX MD Last Documented On 4 8:22AM ; [facility] Lab UA, Complete, Reflex to Culture 01/29 10/23 KEYANNA BOX MD Last Documented On 4 8:22AM ; [facility] Lab 1 HR GLUCOSE TOLERANCE TEST 02/18/24 KEYANNA BOX MD Last Documented On 4 8:22AM ; [facility] Lab *CBC W/DIFF 02/18/24 KEYANNA Sparrow MD Last Documented On 4 8:22AM ; [facility] Lab CBC WITH DIFF 03/10/24 KEYANNA RENEE MD Last Documented On 4 9:44AM ; [facility] Lab URINALYSIS /REFLEX C&S 03/10/24 LACY BOX MD Last Documented On 4 9:44AM ; [facility] Lab ANTIBODY SCREEN 03/10/24 KEYANNA VEGA MD Last Documented On 4 9:44AM ; [facility] Lab GTT 1 HOUR GLUCOSE 03/10/24 KEYANNA BOX MD Last Documented On 4 9:44AM ; [facility] Lab RPR (RAPID PLASMA REAGIN) 03/10/24 KEYANNA BOX MD Last Documented On 4 9:44AM ; [facility] Ultrasound (OB) - ULTRASOUND FOLLOW -UP OB U/S Matern care for oth or susp poor fetl grth, 2nd tri, unsp 03/13/24 KEYANNA BOX MD Last Documented On 4 9:53AM ; [facility] Assessments Includes: Assessments from this encounter No Assessments Recorded Medical Equipment - Implanted Devices Includes: Current Devices No Medical Equipment Recorded Medications Includes: Medications discussed during this encounter and other current Medications Current Medications (continue as prescribed) Vitamins Oral Tablet 11/20/2023 Provider: Diagnosis: Last Documented On 4 3:22PM By FERNANDA CROSS ; [facility] Sertraline HCl 50 MG Oral Tablet 11/20/2023 Provider: KEYANNA BOX MD Diagnosis: Oth mental disor ders complicating , first trimester One tablet daily Last Documented On 11/20/2023 4:06PM By KEYANNA BOX MD ; [facility] Past Medications on file Macrobid 100 MG Oral Capsule 01/10/2024 - 01/17/2024 P palakder: [facility]- Diagnosis: Dysuria One tablet twice a day Last Documented On 01/10/2024 2:56PM By Lindsey Chan Ez ; [facility] Medications Administered Includes: Administered Medications from this encounter No Administered Medications Recorded Vital Signs Includes: Vital Signs from this encounter Vital Name 03/03/2024 09:16A Blood Pressure Sitting R 118/68 BP Cuff Size Regular Temp-Temporal 98.7 Weight (lb) 190 Last Documented: On 03/03/2024 9:16AM ; [facility] Results Includes: Results discussed during this [...] second trimester KEYANNA BOX MD [facility] 03/03/2024 Last Documented On 4 6:24PM ; [facility] Medical History Includes: Medical History addressed [...] OB EXAM KEYANNA BOX MD [facility] 4 8:53AM 9:54AM Insurance Includes: Active Insurance Policies Plan Name Member ID Group # Subscriber Relationship Effect lizy Dates 1 - MEDICAID [facility] [id number] [place] Self Clinical Notes Includes: Clinical Notes from this encounter * Progress note Date Encounter Last Documented by 03/03/2024 RETURN OB EXAM Last documented on 03/03/2024; 9:44 AM, KEYANNA BOX MD; [facility] History of Present [...]
--- OUTSIDE RECORDS SUMMARY | 2024-11-10 16:30 | XMS_ITS | Clinical Summary ---
Author Organization [facility] Address [address] [place] [address] Phone Care Team Providers Care Director Of Corporate Responsibility Name Role Phone Unavailable Unavailable Unavailable Reason for Visit and Chief Complaint * PHONE CALL Problems Includes: Problems addressed during this encounter and other active Problems Current Visit Onset Date Resolved Date Provider Conditio n Status History of Breast Disorders 11/20/2023 KEYANNA VILLA MD Active Last Documented On 11/20/2023 4:08PM ; [facility] Note: PGM cancer History of Depression 11/20/2023 KEYANNA VILLA MD Active Last Documented On 11/20/2023 4:08PM ; [facility] Note: pt dx at 5 yo was on ritalin for A DHD at 8 y o x one year; no meds since then; dad, mom History of Hematologic Disorders 11/20/2023 KEYANNA VILLA MD Active Last Documented On 11/20/2023 4:08PM ; [facility] Note: dad History of Reported Physical Trauma 11/20/2023 KEYANNA VILLA MD Active Last Documented On 4:08PM ; [facility] Past Visits Onset Date Resolved Date Provider Condition Status History of Renal Disease 11/20/2023 KEYANNA VILLA MD Active Last Documented On 11/20/2023 4:08PM ; [facility] Note: dad kidney cancer, had kidney breana crystal Reported Family History of Congenital Heart Disease 10/30/2023 [facility] Active Last Documented On 10/30/2023 11:05AM ; [facility] Note: mom hemophelia carrier 09/02/2023 KEYANNA VILLA MD Active Last Documented On 3:04PM ; [facility] Plan of Treatment No Plan of [...] Pharmacy: [facility] ([facility] [address] [facility], [phone] - Last Documented On 01/10/2024 2:56PM By Lindsey Chan Ez ; [facility] Current Medications (continue as prescribed) Vitamins Oral Tablet 11/20/2023 Provider: Diagnosis: Last Documented On 4 3:22PM By FERNANDA CROSS ; [facility] Sertraline HCl 50 MG Oral Tablet 11/20/2023 Provider: KEYANNA VILLA MD Diagnosis: Oth mental disor ders complicating , first trimester One tablet daily Last Documented On 11/20/2023 4:06PM By KEYANNA VILLA MD ; [facility] Medications Administered Includes: Administered Medications [...] 10/30/2023 Last Documented On 4 2:47PM ; [facility] Sexually active 10/30/2023 Last Documented On 4 2:47PM ; [facility] Sexually active with 1 partners in the l ast year 10/30/2023 Last Documented On 4 2:47PM ; [facility] Does not have anal sex 10/30/2023 Last Documented On 4 2:47PM ; [facility] Former smoker 10/30/2023 Last Documented On 4 2:47PM ; [facility] Has not used injectable drugs 10/30/2023 Last Documented On 4 2:47PM ; [facility] Has sex with males only 10/30/2023 Last Documented On 4 2:47PM ; [facility] Have you ever had sex (vaginal or penis in anus or rectum)? 10/30/2023 Last Documented On 4 2:47PM ; [facility] No consumption of alcohol 10/30/2023 Last Documented On 4 2:47PM ; [facility] No drug use by a sexual partner 10/30/19 Last Documented On 4 2:47PM ; [facility] Not using drugs 10/30/2023 Last Documented On 4 2:47PM ; [facility] Partner has not had a STD in the past ye ar 10/30/2023 Last Documented On 4 2:47PM ; [facility] Patient does not report having sex when she didn't want to 10/30/2023 Last Documented On 4 2:47PM ; [facility] Patient has not had sex unde r the influence of alcohol or drugs in the last year 10/30/2023 Last Documented On 4 2:47PM ; [facility] Sexual partner has not had o ther partners while in relationship with patient 10/30/2023 Last Documented On 4 2:47PM ; [facility] Sexual partner has not had sex with pros titutes 10/30/2023 Last Documented On 4 2:47PM ; [facility] Stopped smoking years ago 08/2023 Last Documented On 4 2:47PM ; [facility] Smoking Status Unknown Medical History Includes: Medical History addressed during this encounter Description Last Updated History of breast disorders PGM cancer 0 11/20/2023 Last Documented On 4 2:47PM ; [facility] History of depression pt dx at 5 yo was on ritalin for ADHD at 8 y o x one year; no meds since then; dad, mom 11/20/2023 Last Documented On 4 2:47PM ; [facility] History of hematologic disorder dad /09/2023 Last Documented On 4 2:47PM ; [facility] Physical trauma 11/20/2023 Last Documented On 4 2:47PM ; [facility] LMP: 09/02/2023 10/30/2023 Last Documented On 4 2:47PM ; [facility] No previous STD 10/30/2023 Last Documented On 4 2:47PM ; [facility] No. of Pregnancies: 1 10/30/2023 Last Documented On 4 2:47PM ; [facility] Family History Includes: Family History addressed during [...] Dates 1 - MEDICAID [facility] [facility] [id number] [place] Self Clinical Notes Includes: Clinical Notes from this encounter * Progress note Date Encounter Last Documented by 01/10/2024 * PHONE CALL Last documented on 01/13/2024; 6:11 AM, [facility]; [facility] Active Problems & Conditions - Family History [...] worsen. pt phone # for return call: [phone] Date/Initials: 01/10/24 LV. History of Present Illness [...]
--- OUTSIDE RECORDS SUMMARY | 2024-11-10 16:30 | XMS_ITS | Clinical Summary ---
Author Organization [facility] Address [address] [place] [address] Phone Care Team Providers Care Manager User Experience Name Role Phone Unavailable Unavailable Unavailable Reason for Visit and Chief Complaint RETURN OB EXAM Problems Includes: Problems addressed during this encounter and other active Problems All Visits Onset Date Resolved Date Provider Condition S tatus History of Breast Disorders 11/20/2023 KEYANNA BOX MD Active Last Documented On 11/20/2023 4:08PM ; [facility] Note: PGM cancer History of Depression 11/20/2023 KEYANNA BOX MD Active Last Documented On 11/20/2023 4:08PM ; [facility] Note: pt dx at 5 yo was on ritalin for A DHD at 8 y o x one year; no meds since then; dad, mom History of Hematologic Disorders 11/20/2023 KEYANNA BOX MD Active Last Documented On 11/20/2023 4:08PM ; [facility] Note: dad History of Renal Disease 11/20/2023 KEYANNA BOX MD Active Last Documented On 11/20/2023 4:08PM ; [facility] Note: dad kidney cancer, had kidney breana crystal History of Reported Physical Trauma 11/20/2023 KEYANNA BOX MD Active Last Documented On 4 4:08PM ; [facility] Reported Family History of Congenital Heart Disease 10/30/2023 [facility] A ctive Last Documented On 10/30/2023 11:05AM ; [facility] Note: mom hemophelia carrier 09/02/2023 KEYANNA BOX MD Active Last Documented On 4 3:04PM ; [facility] Plan of Treatment Pending Tests Order Diagnosis Results Due Ordering P rovider Lab Penta screen 12/23/23 KEYANNA BELCHER MD Last Documented On 4 11:53AM ; [facility] Ultrasound (OB) - U/S COMPLETE OB U/S >/ = 14 WKS , SINGLE FETUS Matern care for oth or susp poor fetl grth, 2nd tri, unsp 01/20/24 KEYANNA BOX MD Last Documented On 4 3:29PM ; [facility] Lab Antibody Scr, RBC w/ reflex id 02/17 KEYANNA BOX MD Last Documented On 4 8:22AM ; [facility] Lab RPR (Monitoring) w/ reflex Titer KEYANNA BOX MD Last Documented On 4 8:22AM ; [facility] Lab UA, Complete, Reflex to Culture 01/29 10/23 KEYANNA BOX MD Last Documented On 4 8:22AM ; [facility] Lab 1 HR GLUCOSE TOLERANCE TEST 02/18/24 KEYANNA BOX MD Last Documented On 4 8:22AM ; [facility] Lab *CBC W/DIFF 02/18/24 KEYANNA Sparrow MD Last Documented On 4 8:22AM ; [facility] Lab CBC WITH DIFF 03/10/24 KEYANNA RENEE MD Last Documented On 4 9:44AM ; [facility] Lab URINALYSIS /REFLEX C&S 03/10/24 LACY BOX MD Last Documented On 4 9:44AM ; [facility] Lab ANTIBODY SCREEN 03/10/24 KEYANNA VEGA MD Last Documented On 4 9:44AM ; [facility] Lab GTT 1 HOUR GLUCOSE 03/10/24 KEYANNA BOX MD Last Documented On 4 9:44AM ; [facility] Lab RPR (RAPID PLASMA REAGIN) 03/10/24 KEYANNA BOX MD Last Documented On 4 9:44AM ; [facility] Ultrasound (OB) - ULTRASOUND FOLLOW -UP OB U/S Matern care for oth or susp poor fetl grth, 2nd tri, unsp 03/13/24 KEYANNA BOX MD Last Documented On 4 9:53AM ; [facility] Assessments Includes: Assessments from this encounter No Assessments Recorded Medical Equipment - Implanted Devices Includes: Current Devices No Medical Equipment Recorded Medications Includes: Medications discussed during this encounter and other current Medications Current Medications (continue as prescribed) Vitamins Oral Tablet 11/20/2023 Provider: Diagnosis: Last Documented On 4 3:22PM By FERNANDA CROSS ; [facility] Sertraline HCl 50 MG Oral Tablet 11/20/2023 Provider: KEYANNA BOX MD Diagnosis: Oth mental disor ders complicating , first trimester One tablet daily Last Documented On 11/20/2023 4:06PM By KEYANNA BOX MD ; [facility] Past Medications on file Macrobid 100 MG Oral Capsule 01/10/2024 - 01/17/2024 P palakder: [facility]- Diagnosis: Dysuria One tablet twice a day Last Documented On 01/10/2024 2:56PM By Lindsey Chan Ez ; [facility] Medications Administered Includes: Administered Medications from this encounter No Administered Medications Recorded Vital Signs Includes: Vital Signs from this encounter Vital Name 02/18/2024 11:21A Blood Pressure Sitting (mmHg) 116/64 Temp-Oral (F) 98.3 Weight (lb) 185 Last Documented: On 02/18/2024 11:42A M ; [facility] Results Includes: Results discussed during this [...] first preg, second trimester KEYANNA BOX MD [facility] 02/18/2024 Last Documented On 4 6:24PM ; [facility] Medical History Includes: Medical History addressed [...] Diagnosis RETURN OB EXAM KEYANNA BOX MD [facility] 11:04AM 12:04PM Insurance Includes: Active Insurance Policies Plan Name Member ID Group # Subscriber Relationship Effect lizy Dates 1 - MEDICAID [facility] [id number] [place] Self Clinical Notes Includes: Clinical Notes from this encounter * Progress note Date Encounter Last Documented by 02/18/2024 RETURN OB EXAM Last documented on 02/18/2024; 11:58 AM, KEYANNA BOX MD; [facility] History of Present Illness [...] finish anatomy screen; (last u/s 02/04/24 at [facility] EndCited StartCited - Other PHY ORDER/COMMENT needs 26 wk labs in 2 wks at next visit B neg so does need antibody screen, too. Follow-up needs f/u u/s to finish anatomy screen about a month after last u/s; return OB visit in 2 wks with 26 wk labs (30 min). EndCited
--- OUTSIDE RECORDS SUMMARY | 2024-11-10 16:31 | XMS_ITS ---
Care Plan - [facility] Created on: November 10, 2024 [place] : 2005 Sex: Female Author Organization [facility] Address [address] [place] [phone] Phone Care Team Providers Care Paragliding Instructor Name Role Phone Unavailable Unavailable Unavailable
--- NOTE | 2024-11-10 16:54 | ED.NAVMDI ---
HPI - Nausea/Vomiting/Diarrhea General Chief complaint: Nausea/Vomiting/Diarrhea Stated complaint: Vomiting/Diarrhea Time Seen by Provider: 11/10/24 16:55 Source: patient and RN notes reviewed Mode of arrival: ambulatory Limitations: no limitations History of Present Illness HPI Narrative: 19-year-old female presents with concern for nausea, vomiting, diarrhea since yesterday. Reports she last had vomiting and diarrhea earlier today. Reports she had a low-grade fever this morning. She works at a detention MD elicited complaint: nausea, vomiting and diarrhea Related Data Allergies Allergy/AdvReac Type Severity Reaction Status Date / Time No Known Allergies Allergy Verified 11/10/24 16:53 Review of Systems Review of Systems: CONSTITUTIONAL: Reports malaise, low-grade fever. Denies chills, sweats ENT: Denies rhinorrhea, congestion, sinus pain, otalgia or sore throat. CARDIOVASCULAR: Denies chest pain, palpitations, or edema. RESPIRATORY: Denies cough or dyspnea. GASTROINTESTINAL: Denies abdominal pain. Reports nausea, vomiting, diarrhea. Denies bloody, or mucous stools. GENITOURINARY: Denies dysuria or hematuria. MUSCULOSKELETAL: Denies myalgia. NEUROLOGIC: Denies headache. All systems reviewed & are unremarkable except as noted in HPI and below PMFSH Past Medical History Medical History ADHD Bronchitis COVID-19 Depression Surgical History Surgical History No significant past surgical history Family History Family History Other No significant family history Social History Social History Smoking status: Never smoker Alcohol intake: never Substance use: never Living arrangements: with family Occupation/Education: student Additional occupation/education comments: works as a cook in detention Gender identity (if verbalized by the patient): Female Spiritual care concerns: No Comments At time of signature, agree with nursing past medical, surgical, social and family history. There is no relevant family history pertinent to the presenting complaint Exam Narrative: GENERAL: Well-appearing, well-nourished, and in no acute distress. HEAD: Normocephalic, atraumatic. EYES: PERRLA, conjunctivae clear, and EOMI. ENT: Nares clear, turbinates pink, no rhinorrhea or epistaxis. Mucous membranes moist. Oropharynx without edema, erythema, or lesions. Tonsils not enlarged and without exudate. NECK: Supple. No lymphadenopathy CHEST: Speaks in full sentences. No respiratory distress. HEART: Regular rate and rhythm. ABDOMEN: Soft, flat, nondistended, nontender. No guarding, rebound tenderness, or rigidity. No pulsatile masses. Bowel sounds present in all four quadrants. SKIN: Warm, dry, no rash. NEURO: Alert and oriented x3. PSYCH: Normal mood and affect Course Course Emergency Course: Patient is aware of diagnosis, understands and agrees to treatment plan. Anticipatory guidance given. Patient agrees to follow-up as directed and is aware of reasons to seek care at the emergency department. Portions of this record may have been created with voice recognition software Level of Care: Express Care Visit Vital Signs Vital signs: Vital Signs Temperature 97 F L 11/10/24 16:23 Pulse Rate 85 11/10/24 16:23 Respiratory Rate 16 11/10/24 16:23 Blood Pressure 113/70 11/10/24 16:23 Pulse Oximetry 99 11/10/24 16:23 Oxygen Delivery Room Air 11/10/24 16:23 Temperature 97 F L 11/10/24 16:23 Pulse Rate 85 11/10/24 16:23 Respiratory Rate 16 11/10/24 16:23 Blood Pressure 113/70 11/10/24 16:23 Pulse Oximetry 99 11/10/24 16:23 Oxygen Delivery Room Air 11/10/24 16:23 Reviewed. MDM - Nausea/Vomiting/Diarrhea MDM Narrative Medical decision making narrative: No evidence of pancreatitis, AAA, cholecystitis, choledocholithiasis, cholangitis, mesenteric ischemia, small bowel obstruction, diverticulitis, colitis, appendicitis, or pelvic etiology such as ovarian/testicular torsion, TOA, or ectopic . Patient has no history of peptic ulcer, H. pylori, chronic aspirin NSAID or corticosteroid use, chronic alcohol use, no history of inflammatory bowel disease, no history of active abdominal infection or malignancy. Patient has no history of hernia or intra-abdominal surgeries, patient denies absence of flatus, constipation, melena, hematemesis. Patient denies post-prandial pain. No pain-out of proportion. Exam findings show no acute concerns or changes; patient is non-toxic appearing and is in no distress. Patient is appropriate for outpatient treatment and follow-up. Critical Care Time Critical Care Time Critical Care Time: No Discharge Plan Discharge Clinical Impression: Nausea vomiting and diarrhea Patient Disposition: Home, Self-Care Condition: Stable Instructions: Acute Nausea and Vomiting (ED), Acute Diarrhea (ED) Additional Instructions: Stay hydrated. Take small sips of fluid containing electrolytes frequently. You should go to the hospital if you experience return of persistent nausea and vomiting that does not resolve and does not allow you to tolerate any food or fluids, persistent fevers for greater than 2-3 more days, increasing abdominal pain that persists despite medications, persistent diarrhea, dizziness, syncope (fainting), or for any other concerns. Patient Language: Kinyarwanda Prescriptions: New promethazine 25 mg tablet 25 mg PO TID PRN (Reason: nausea and vomiting) Qty: 14 0RF Follow-up/Referrals: UNKNOWN,DOCTOR [Primary Care Provider] - Stand Alone Forms: Work/School Release IP Time of Disposition: 17:03
== END 2024-11-10 17:09 | disposition home or self-care (01) ==
PROVIDERS: Emergency Provider Nurse Practitioner
DX: R11.2 Nausea with vomiting, unspecified (principal); R19.7 Diarrhea, unspecified; Z86.16 Personal history of COVID-19
CPT/HCPCS: 99213; G0463